=== PATIENT | male | born 1950 | race Caucasian/White ===

== ENCOUNTER 2017-05-05 18:25 | Inpatient (IN) | payer OTHER ==
[2017-05-05 18:33] VITALS: BMI 30.5
[2017-05-05] MEDS ORDERED: SODIUM CHLORIDE 500 ML IV STA (18:43)
[2017-05-05] MEDS ORDERED: ONDANSETRON 4 MG/2 ML VIAL IVPB ONE (18:48)
[2017-05-05] MEDS ORDERED: FOLIC ACID INJECTION - 1 MG, THIAMINE HCL 100 MG, MULTIVIT INJECTION ADULT 10 ML in SOD... IVPB ONE (19:12)
[2017-05-05 19:16] LABS: VENOUS PH 7.45 (7.32-7.42)
[2017-05-05] MEDS ORDERED: diazePAM CARPU-JECT 10 MG/2 ML DISP.SYRIN IVPUSH ONE (19:17)
[2017-05-05 19:18] LABS: BASOPHIL 0.4 % (0-2.0); EOSINOPHIL 0.1 % (0-4.5); MCH 31.6 pg (25.7-33.7); MCHC 34.7 g/dl (32.0-35.9); MEAN CELL VOLUME 91.2 fl (80-96); MEAN PLT VOLUME 8.4 fl (7.5-11.1); NEUTROPHILS 85.3 % (42.8-82.8); PLATELET COUNT 262 K/MM3 (134-434); RDW 14.3 % (11.9-15.9); WHITE BLOOD COUNT 16.2 K/mm3 (4.0-10.0)
[2017-05-05] MEDS ORDERED: ONDANSETRON 4 MG/2 ML VIAL ONE (19:20)
--- NOTE | 2017-05-05 19:20 | PDOC ---
History of Present Illness <Waqas Urbano - Last Filed: 05/05/17 22:00> - General History Source: Patient Exam Limitations: No Limitations - History of Present Illness Initial Comments: 05/05/17 21:14 The patient is a 67 year old male, with a significant past medical history of alcoholism(daily Vodka and beer use), hypertension, and hypothyroidism, who presents to the emergency department with nausea and vomiting since earlier this evening. The patient reports multiple episodes of nausea and bloody/coffee ground emesis earlier today. Patient reports his last drink was yesterday afternoon, and states he has not had a drink today secondary to nausea and vomiting. Patient is unsure of stool color but may have been dark colored. Patient denies any associated abdominal pain, diarrhea, constipation, hematochezia. As per friend, patient has been drinking heavily since and there was some red blood on his vomitus. He reports a dry cough , but denies any fever, chills, headache, dizziness, or lightheadedness. He denies any chest pain, shortness of breath, diaphoresis, or palpitations. He denies any dysuria, hematuria, frequency, or urgency. Patient states he is not on any blood thinners and is compliant with his blood pressure and thyroid medications. He denies any recent travel or sick contacts. Allergies: NKDA Past Surgical History: None reported Social history: ETOH abuse. Non smoker. No recreational drug use. <Christy Rubi - Last Filed: 05/05/17 22:23> - General Chief Complaint: Nausea/Vomiting Stated Complaint: PCP SENT Time Seen by Provider: 05/05/17 18:41 Past History - Past Medical History Asthma: Yes COPD: No HTN: Yes Liver Disease: No Thyroid Disease: Yes (HYPO) - Immunization History Immunization Up to Date: No - Suicide/Smoking/Psychosocial Hx Smoking Status: No Smoking History: Never smoked Have you smoked in the past 12 months: No Number of Cigarettes Smoked Daily: 0 Hx Alcohol Use: Yes (VODKA) Drug/Substance Use Hx: No Substance Use Type: Alcohol Hx Substance Use Treatment: Yes (12 years ago) <Waqas Urbano - Last Filed: 05/05/17 22:00> <Christy Rubi - Last Filed: 05/05/17 22:23> - Past Medical History Allergies/Adverse Reactions: Allergies Allergy/AdvReac Type Severity Reaction Status Date / Time No Known Allergies Allergy Verified 05/05/17 18:32 Home Medications: Ambulatory Orders Levothyroxine [Synthroid -] 88 mcg PO DAILY@0700 #30 tablet 02/04/16 Lisinopril [Prinivil] 10 mg PO DAILY #30 tablet 02/04/16 Review of Systems - Review of Systems Able to Perform ROS?: Yes Comments:: 05/05/17 21:14 CONSTITUTIONAL: No reported: Fever, Chills, Diaphoresis, Generalized Weakness, Malaise, Loss of Appetite HEENT: No reported: Rhinorrhea, Nasal Congestion, Throat Pain, Throat Swelling, Difficulty Swallowing, Mouth Swelling, Ear Pain, Eye Pain, Visual Changes CARDIOVASCULAR: No reported: Chest Pain, Syncope, Palpitations, Irregular Heart Rate, Lightheadedness, Peripheral Edema RESPIRATORY: dry cough No reported: Shortness of Breath, SOB with Exertion, Orthopnea, Wheezing, Stridor GASTROINTESTINAL: +nausea, vomiting(brown/red) No reported: Abdominal pain, Abdominal Distension, Diarrhea, Constipation, Melena, Hematochezia GENITOURINARY: No reported: Dysuria, Frequency, Urgency, Hesitancy, Flank Pain, Genital Pain MUSCULOSKELETAL: No reported: Myalgia, Arthralgia, Joint Swelling, Back pain, Neck Pain SKIN: No reported: Rash, Itching, Pallor HEMEATOLOGIC/IMMUNOLOGIC: No reported: Easy Bleeding, Easy Bruising, Lymphadenopathy, Frequent infections ENDOCRINE: No reported: Unexplained Weight Gain, Unexplained Weight Loss, Heat Intolerance , Cold Intolerance NEUROLOGIC: No reported: Headache, Focal Weakness, Paresthesias, Vertigo, Lightheadedness, Unsteady Gait, Seizure, Mental Status Changes, Incontinence PSYCHIATRIC: No reported: Anxiety, Depression <Christy Rubi - Last Filed: 05/05/17 22:23> *Physical Exam - Vital Signs Last Vital Signs Temp Pulse Resp BP Pulse Ox 99.6 F 118 H 20 159/120 95 05/05/17 18:26 05/05/17 18:26 05/05/17 18:26 05/05/17 18:26 05/05/17 18:26 <Waqas Urbano - Last Filed: 05/05/17 22:00> - Vital Signs Last Vital Signs Temp Pulse Resp BP Pulse Ox 99.6 F 101 H 20 158/94 94 L 05/05/17 18:26 05/05/17 21:02 05/05/17 21:02 05/05/17 21:02 05/05/17 21:02 - Physical Exam Comments: 05/05/17 21:14 GENERAL: The patient is awake, alert, and fully oriented, Nontoxic - in no acute distress, tremulous appearing HEAD: Normocephalic, atraumatic. EYES: extraocular movements intact, sclera anicteric, conjunctiva clear. ENT: Normal voice, Moist mucous membranes NECK: Normal range of motion, supple LUNGS: Breath sounds equal, clear to auscultation bilaterally. No wheezes, no rhonchi, no rales. HEART: tachycardic ABDOMEN: Soft, nontender, normoactive bowel sounds. No guarding, no rebound. No CVA tenderness RECTAL: non melanotic, dark colored, scant stool in vault EXTREMITIES: Normal range of motion, no edema. No clubbing or cyanosis. No cords, erythema, or tenderness. NEUROLOGICAL: No facial assymetry, Normal speech, moving all 4 extremities spontaneously and symmetrically PSYCH: Normal mood, normal affect. SKIN: Warm, Dry, normal turgor, <Rubi,Giomilsy - Last Filed: 05/05/17 22:23> Heart Score/ECG Review - ECG Impressions Comment:: 05/05/17 20:38 Twelve-lead EKG was performed and reviewed by me. There is normal sinus rhythm with a rate of 100 Left axis deviation Impression: Normal twelve-lead EKG <Waqas Urbano - Last Filed: 05/05/17 22:00> ED Treatment Course - LABORATORY CBC & Chemistry Diagram: 05/05/17 19:10 05/05/17 19:10 - RADIOLOGY Radiology Studies Ordered: Category Date Time Status CHEST X-RAY PORTABLE* [RAD] Stat Radiology 05/05/17 18:57 Ordered - Medications Given in the ED: ED Medications Discontinued Medications Generic Name Dose Route Start Last Admin Trade Name Freq PRN Reason Stop Dose Admin Ondansetron HCl 4 mg 05/05/17 18:48 05/05/17 19:14 Zofran Injection IVPB 05/05/17 18:49 4 mg ONCE ONE Administration <Waqas Urbano - Last Filed: 05/05/17 22:00> - LABORATORY CBC & Chemistry Diagram: 05/05/17 19:10 05/05/17 19:10 - ADDITIONAL ORDERS Additional order review: Laboratory Results 05/05/17 05/05/17 05/05/17 20:00 19:26 19:10 PT with INR INR VBG pH POC VBG pCO2 POC VBG pO2 Mixed VBG HCO3 Sodium Potassium Chloride Carbon Dioxide Anion Gap BUN Creatinine Creat Clearance w eGFR Random Glucose Calcium Total Bilirubin AST ALT Alkaline Phosphatase Creatine Kinase Cancelled Creatine Kinase Index CK-MB (CK-2) Troponin I Cancelled Total Protein Albumin Lipase Stool Occult Blood Positive Alcohol, Quantitative Acetone, Qual Blood Type O POSITIVE Antibody Screen Negative 05/05/17 05/05/17 05/05/17 19:10 19:10 19:10 PT with INR INR VBG pH POC VBG pCO2 POC VBG pO2 Mixed VBG HCO3 Sodium Potassium Chloride Carbon Dioxide Anion Gap BUN Creatinine Creat Clearance w eGFR Random Glucose Calcium Total Bilirubin AST ALT Alkaline Phosphatase Creatine Kinase Creatine Kinase Index CK-MB (CK-2) Troponin I Total Protein Albumin Lipase Cancelled Stool Occult Blood Alcohol, Quantitative 158.8 H* Acetone, Qual Negative Blood Type Antibody Screen 05/05/17 05/05/17 05/05/17 19:10 19:10 19:00 PT with INR 11.60 INR 1.03 VBG pH 7.45 H POC VBG pCO2 39.2 POC VBG pO2 50.9 H Mixed VBG HCO3 27.0 H Sodium 132 L Potassium 3.8 Chloride 95 L Carbon Dioxide 24 Anion Gap 13 BUN 18 D Creatinine 0.7 D Creat Clearance w eGFR > 60 Random Glucose 158 H Calcium 7.2 L Total Bilirubin 0.5 AST 40 H D ALT 35 D Alkaline Phosphatase 85 Creatine Kinase 395 H Creatine Kinase Index 0.8 CK-MB (CK-2) 3.494 Troponin I < 0.02 Total Protein 7.3 Albumin 3.7 Lipase 46 L Stool Occult Blood Alcohol, Quantitative Acetone, Qual Blood Type Antibody Screen 05/05/17 19:10 RBC 4.62 MCV 91.2 MCHC 34.7 RDW 14.3 MPV 8.4 D Neutrophils % 85.3 H Lymphocytes % 7.6 L Monocytes % 6.6 Eosinophils % 0.1 D Basophils % 0.4 - Medications Given in the ED: ED Medications Discontinued Medications Generic Name Dose Route Start Last Admin Trade Name Toyin PRN Reason Stop Dose Admin Diazepam 5 mg 05/05/17 19:17 05/05/17 19:30 Valium Injection - IVPUSH 05/05/17 19:18 Not Given ONCE ONE Diazepam 5 mg 05/05/17 19:56 05/05/17 20:03 Valium - PO 05/05/17 19:57 5 mg ONCE ONE Administration Sodium Chloride 500 mls @ 500 mls/hr 05/05/17 18:43 05/05/17 19:13 Normal Saline - IV 05/05/17 19:42 500 mls/hr ASDIR STA Administration Pantoprazole Sodium 40 mg/ 100 mls @ 200 mls/hr 05/05/17 20:22 05/05/17 20:38 Sodium Chloride IVPB 05/05/17 20:51 200 mls/hr ONCE ONE Administration Octreotide Acetate 50 mcg 05/05/17 20:22 05/05/17 20:50 Sandostatin - IVPUSH 05/05/17 20:23 50 mcg ONCE ONE Administration Ondansetron HCl 4 mg 05/05/17 18:48 05/05/17 19:14 Zofran Injection IVPB 05/05/17 18:49 4 mg ONCE ONE Administration <Christy Rubi - Last Filed: 05/05/17 22:23> Medical Decision Making - Medical Decision Making 05/05/17 19:15 67y F hx of etoh abuse, htn, hypothyroidism presents with complaint of nausea/ vomiting since this morning. Pt endorses multiple episodes of vomiting that had blood in it an was dark colored and with some blood per friend. Pt deines any cp , sob, but does endorse some stool but wasnt sure of the color. pt states he has been drinking heavily since thanks giving, notes he drnks 1 bottle of vodka a day, last drink was yesterday. on arrival the pts vitals noted for tachycardia and htn pt does appear mildly tremulous dry mucus membranes abd soft notneder awaiting guaiac exam concern for possible UGIB/ulcers will ck pt/inr, t&s will give fluids, zofran will give diazepam as i belive pt has mild sypmtoms of withdrawal A portion of this note was documented by scribe services under my direction. I have reviewed the details of the note, within reason, and agree with the documentation with the following case summary and management plan written by me 05/05/17 20:34 pts labs reviewed noted for no anemia no signs of AKA per blood +stool guaiac positive +mild withdrawal will admit pt for further management will start protonix and octreotide based on pts etoh hx and concern for variceal bleeding 05/05/17 21:[address] kennedy agree with admissio nfor further management of withrasawl and gib will notify GIB Case discussed in detail with admitting physician including history, physical exam and ancillary studies. Admitting physician has assumed care for the patient, will follow all pending diagnostics and will complete the evaluation and treatment. <Waqas Urbano - Last Filed: 05/05/17 22:00> - Medical Decision Making 05/05/17 22:19 First call placed to Dr. Otoole at 22:20. Awaiting call back. Case discussed with Dr. Otoole at 22:22. <Christy Rubi - Last Filed: 05/05/17 22:23> *DC/Admit/Observation/Transfer - Discharge Dispostion Admit: Yes <Waqas Urbano - Last Filed: 05/05/17 22:00> - Attestations Scribe Attestion: 05/05/17 21:15 Documentation prepared by Christy Rubi, acting as medical claims analyst for Waqas Urbano MD. <Christy Rubi - Last Filed: 05/05/17 22:23> Diagnosis at time of Disposition: Alcohol withdrawal Qualifiers: Complication of substance-induced condition: uncomplicated Qualified Code(s): F10.230 - Alcohol dependence with withdrawal, uncomplicated GIB (gastrointestinal bleeding) Qualifiers: GI bleed type/associated pathology: unspecified gastrointestinal hemorrhage type Qualified Code(s): K92.2 - Gastrointestinal hemorrhage, unspecified - Discharge Dispostion Condition at time of disposition: Guarded
[2017-05-05] MEDS ORDERED: diazePAM 5 MG TABLET ONE ×2 (19:30→19:34)
[2017-05-05 19:32] LABS: INR 1.03 (0.82-1.09); PROTHROMBIN TIME (PATIENT) 11.6 SEC (9.98-11.88)
[2017-05-05 19:51] LABS: ALBUMIN 3.7 g/dl (3.4-5.0); ANION GAP 13 (8-16); BILIRUBIN,TOTAL 0.5 mg/dL (0.2-1.0); CALCIUM 7.2 mg/dL (8.5-10.1); CO2 24 mmol/L (21-32); CREATININE 0.7 mg/dL (0.7-1.3); GLUCOSE,RANDOM 158 mg/dL (74-106); SGOT/AST 40 U/L (15-37); SGPT/ALT 35 U/L (12-78); TOT PROT 7.3 g/dl (6.4-8.2)
[2017-05-05] MEDS ORDERED: diazePAM 5 MG TABLET PO ONE (19:56)
[2017-05-05 19:59] LABS: ALK PHOS 85 U/L (45-117); CPK 395 IU/L (39-308); TROPONIN I < 0.02 ng/ml (0.00-0.05)
[2017-05-05] MEDS ORDERED: OCTREOTIDE ACETATE 50 MCG/1 ML - 1 ML VIAL IVPUSH ONE (20:22)
[2017-05-05] MEDS ORDERED: PANTOPRAZOLE SODIUM 40 MG in SODIUM CHLORIDE 100 ML IVPB ONE (20:22)
[2017-05-05] MEDS ORDERED: PANTOPRAZOLE SODIUM 40 MG/100 ML BAG IVPB ONE (20:27)
[2017-05-05] MEDS ORDERED: PANTOPRAZOLE SODIUM 40 MG VIAL ONE (20:28)
[2017-05-05] MEDS ORDERED: OCTREOTIDE ACETATE 100 MCG/1 ML ONE (20:28)
[2017-05-05] MEDS ORDERED: OCTREOTIDE ACETATE 1,200 MCG in DEXTROSE 5%-WATER - 488 ML IVPB SCH (20:30)
[2017-05-05] MEDS ORDERED: PANTOPRAZOLE SODIUM 80 MG in SODIUM CHLORIDE 100 ML IVPB SCH (20:30)
[2017-05-05] MEDS ORDERED: chlordiazePOXIDE HCL 25 MG CAPSULE PO PRN (23:45)
--- NOTE | 2017-05-05 23:47 | HP ---
CHIEF COMPLAINT: eoth withdrawal/coffee ground emesis PCP: Susan Auguste GI: Dr. Del Rio Cardio: Dr. Maldonado HISTORY OF PRESENT ILLNESS: 67 yr old northern irish speaking man with chronic alcohol abuse, HTN, hypothyroidism presents with one day of multiple episodes of watery emesis, several episodes of "dark colored" emesis. says he drank coca cola. unable to quantify amount of vomiting. He drinks 1L bottle of vodka daily for october years, last drink . a/w trouble swallowing and throat pain after vomiting. has a history of "shaking/tremors" after he stops drinking. ER course was notable for: (1) banana bag (2) IVF (3) protonix drip chart reviewed for additional information. PAST MEDICAL HISTORY: HTN Hypothyroidism ETOH abuse PAST SURGICAL HISTORY: none Social History: Smoking: denies Alcohol: daily drinker, 1L of vodka Drugs: denies Family History: [place] Allergies No Known Allergies Allergy (Verified 05/05/17 18:32) HOME MEDICATIONS: Home Medications Medication Instructions Recorded Levothyroxine [Synthroid -] 88 mcg PO DAILY@0700 #30 tablet 02/04/16 Lisinopril [Prinivil] 10 mg PO DAILY #30 tablet 02/04/16 REVIEW OF SYSTEMS CONSTITUTIONAL: Absent: fever, chills, diaphoresis, generalized weakness, malaise, loss of appetite HEENT: Present: throat pain, Absent:difficulty swallowing CARDIOVASCULAR: Absent: chest pain, palpitations, RESPIRATORY: Absent: cough, shortness of breath GASTROINTESTINAL: Present:vomiting Absent: abdominal pain, abdominal distension, nausea, diarrhea, constipation, melena, hematochezia NEUROLOGIC: Absent: headache, dizziness, PHYSICAL EXAMINATION Vital Signs - 24 hr 05/05/17 05/05/17 05/05/17 18:26 21:02 22:15 Temperature 99.6 F 98.2 F Pulse Rate 118 H Pulse Rate [ 101 H 94 H Apical] Respiratory 20 20 20 Rate Blood Pressure 159/120 Blood Pressure 158/94 148/90 [Right Arm] O2 Sat by Pulse 95 94 L 100 Oximetry (%) 05/05/17 22:40 Temperature 99.9 F H Pulse Rate 95 H Pulse Rate [ Apical] Respiratory 20 Rate Blood Pressure 146/83 Blood Pressure [Right Arm] O2 Sat by Pulse Oximetry (%) GENERAL: Awake, alert, and fully oriented, in no acute distress. HEAD: Normal with no signs of trauma. EYES: Pupils equal, round and reactive to light, extraocular movements intact, sclera anicteric, conjunctiva clear. No lid lag. EARS, NOSE, THROAT: buccal mucosa clear without exudates. Moist mucous membranes. white plaque coating on his tongue NECK: Normal range of motion, supple without lymphadenopathy, JVD, or masses. LUNGS: Breath sounds equal, clear to auscultation bilaterally. No wheezes, and no crackles. No accessory muscle use. HEART: sinus tachy, Regular rhythm, normal S1 and S2 without murmur, rub or gallop. ABDOMEN: Soft, nontender, not distended, normoactive bowel sounds, no guarding, no rebound, no masses. MUSCULOSKELETAL: Normal range of motion at all joints. No bony deformities or tenderness. No CVA tenderness. UPPER EXTREMITIES: 2+ radial pulses, warm, well-perfused. No cyanosis. No clubbing. No peripheral edema. LOWER EXTREMITIES: 2+ DP pulses, warm, well-perfused. No calf tenderness. No peripheral edema. NEUROLOGICAL: Cranial nerves II-XII intact. Normal speech. facial symmetry. visible tremor in b/l upper extremities at rest and with movement. 5/5 handgrip. PSYCHIATRIC: Cooperative. Good eye contact. Appropriate mood and affect. SKIN: Warm, dry, normal turgor, no rashes or lesions noted, normal capillary refill. Laboratory Results - last 24 hr 05/05/17 05/05/17 05/05/17 19:00 19:10 19:10 WBC 16.2 H D RBC 4.62 Hgb 14.6 Hct 42.1 MCV 91.2 MCH 31.6 MCHC 34.7 RDW 14.3 Plt Count 262 D MPV 8.4 D Neutrophils % 85.3 H Lymphocytes % 7.6 L Monocytes % 6.6 Eosinophils % 0.1 D Basophils % 0.4 PT with INR 11.60 INR 1.03 VBG pH 7.45 H POC VBG pCO2 39.2 POC VBG pO2 50.9 H Mixed VBG HCO3 27.0 H Sodium Potassium Chloride Carbon Dioxide Anion Gap BUN Creatinine Creat Clearance w eGFR Random Glucose Calcium Total Bilirubin AST ALT Alkaline Phosphatase Creatine Kinase Creatine Kinase Index CK-MB (CK-2) Troponin I Total Protein Albumin Lipase Stool Occult Blood Alcohol, Quantitative Acetone, Qual Blood Type Antibody Screen 05/05/17 05/05/17 05/05/17 19:10 19:10 19:10 WBC RBC Hgb Hct MCV MCH MCHC RDW Plt Count MPV Neutrophils % Lymphocytes % Monocytes % Eosinophils % Basophils % PT with INR INR VBG pH POC VBG pCO2 POC VBG pO2 Mixed VBG HCO3 Sodium 132 L Potassium 3.8 Chloride 95 L Carbon Dioxide 24 Anion Gap 13 BUN 18 D Creatinine 0.7 D Creat Clearance w eGFR > 60 Random Glucose 158 H Calcium 7.2 L Total Bilirubin 0.5 AST 40 H D ALT 35 D Alkaline Phosphatase 85 Creatine Kinase 395 H Creatine Kinase Index 0.8 CK-MB (CK-2) 3.494 Troponin I < 0.02 Total Protein 7.3 Albumin 3.7 Lipase 46 L Stool Occult Blood Alcohol, Quantitative 158.8 H* Acetone, Qual Negative Blood Type Antibody Screen 05/05/17 05/05/17 05/05/17 19:10 19:10 19:26 WBC RBC Hgb Hct MCV MCH MCHC RDW Plt Count MPV Neutrophils % Lymphocytes % Monocytes % Eosinophils % Basophils % PT with INR INR VBG pH POC VBG pCO2 POC VBG pO2 Mixed VBG HCO3 Sodium Potassium Chloride Carbon Dioxide Anion Gap BUN Creatinine Creat Clearance w eGFR Random Glucose Calcium Total Bilirubin AST ALT Alkaline Phosphatase Creatine Kinase Cancelled Creatine Kinase Index CK-MB (CK-2) Troponin I Cancelled Total Protein Albumin Lipase Cancelled Stool Occult Blood Alcohol, Quantitative Acetone, Qual Blood Type O POSITIVE Antibody Screen Negative 05/05/17 20:00 WBC RBC Hgb Hct MCV MCH MCHC RDW Plt Count MPV Neutrophils % Lymphocytes % Monocytes % Eosinophils % Basophils % PT with INR INR VBG pH POC VBG pCO2 POC VBG pO2 Mixed VBG HCO3 Sodium Potassium Chloride Carbon Dioxide Anion Gap BUN Creatinine Creat Clearance w eGFR Random Glucose Calcium Total Bilirubin AST ALT Alkaline Phosphatase Creatine Kinase Creatine Kinase Index CK-MB (CK-2) Troponin I Total Protein Albumin Lipase Stool Occult Blood Positive Alcohol, Quantitative Acetone, Qual Blood Type Antibody Screen ASSESSMENT/PLAN: 67 yr old man with current ETOH abuse, presents with vomiting, etoh withdrawal and found to have FOBT +. #ETOH withdrawal: CIWA 16, librium protocol started with 50mg due to severity of drinking - Protonix BID ivpush 40mg - NS @ 125cc/hr - thiamine, folate, MVI - QTc 446, given zofran in ED, monitor QTc while on librium - repeat BMP to monitor for electrolyte imbalances - patient would benefit from rehab/detox referral #FOBT +/hematemesis - no overt german bleeding witnessed, concern for gastric ulcer or varices, liver ultrasound to evaluate liver for hepatomegaly/cirrhosis - dr. del rio consulted for GI evaluation - trend cbc q6h # Tongue plaque - r/o HIV, patient provided oral consent, rapid HIV 4th gen ordered - nystatin swish and swallow q6po #hypothyroidism - synthroid 88mcg po daily #HTN - lisinopril 10mg po daily #DVT: SCD's #diet NPO for now, advance as tolerated Visit type - Emergency Visit Emergency Visit: Yes ED Registration Date: 05/05/17 Care time: The patient presented to the Emergency Department on the above date and was hospitalized for further evaluation of their emergent condition. - New Patient This patient is new to me today: Yes Date on this admission: 05/06/17 - Critical Care Critical Care patient: No
--- NOTE | 2017-05-06 00:13 | PN ---
Teaching Attending Note Name of Resident: Yobany Combs ATTENDING PHYSICIAN STATEMENT I saw and evaluated the patient. Chart, data, imaging reviewed. I reviewed the resident's note and discussed the case with the resident. I agree with the resident's findings and plan as documented. SUBJECTIVE: 67 year old male, with a significant past medical history of alcoholism(daily Vodka and beer use), hypertension, and hypothyroidism c/o nausea/vomiting for 1 day. He reports that he has been drinking one bottle of vodka a day for the past 5 days at least. He is unable to number the amount of times that he has vomited , said his vomitus was black, no bright blood. He also mentioned that he was drinking coca cola. Stool fecal occult+. OBJECTIVE: Last Vital Signs Temp Pulse Resp BP Pulse Ox 99.9 F H 95 H 20 146/83 100 05/05/17 22:40 05/05/17 22:40 05/05/17 22:40 05/05/17 22:40 05/05/17 22:15 general-aax3, nad, communicates fluently in mohawk, malodorous , unkept heent-whitish plaque on tongue cv-s1+s2+rrr chest -cta b/l abdomen- soft, nt, no masses ext - no swelling skin - no rashes appreciated Abnormal Lab Results 05/05/17 05/05/17 05/05/17 19:00 19:10 19:10 WBC 16.2 H D Neutrophils % 85.3 H Lymphocytes % 7.6 L VBG pH 7.45 H POC VBG pO2 50.9 H Mixed VBG HCO3 27.0 H Sodium 132 L Chloride 95 L Random Glucose 158 H Calcium 7.2 L AST 40 H D Creatine Kinase 395 H Lipase 46 L Alcohol, Quantitative 05/05/17 19:10 WBC Neutrophils % Lymphocytes % VBG pH POC VBG pO2 Mixed VBG HCO3 Sodium Chloride Random Glucose Calcium AST Creatine Kinase Lipase Alcohol, Quantitative 158.8 H* ekg -nsr, no st-t changes stool guiac+ ASSESSMENT AND PLAN: #Possible upper GI bleed in context recent binge drinking. Uncertain with hematemesis or if vomitus black from soft drink. However, stool guiac + so upper GI bleed should be r/o. Currently vital signs are stable and hemoglobin and hematocrit are stable. No signs of Liver cirrhosis on physical exam. -admit to med/surg -IV fluid hydration -GI consult -PPIs IV q12hrs -zofran IV prn if nausea/vomiting -NPO -check cbc q6hrs -monitor vital signs closely -liver U/S #Impending alcohol withdrawal -librium 50mg PO q6hrs -ativan 2mg IVP PRN if withdrawal -correct electrolye abnormalities -banana bag -IV fluids -CIWA protocol #WHitish plawque on tongue -possible oral thrush -HIV test (patient agreed) -nystatin swish and spit #DVT ppx - -SCDs -avoid heparin
[2017-05-06] MEDS: chlordiazePOXIDE HCL 25 MG CAPSULE PO SCH ×5 (00:21→22:01)
[2017-05-06] MEDS: SODIUM CHLORIDE 1,000 ML IV SCH ×5 (00:22→23:07)
[2017-05-06] MEDS: NYSTATIN 500,000 UNITS/5 ML SUSPENSION PO SCH ×4 (05:12→23:09)
[2017-05-06 05:19] LABS: MCH 31.1 pg (25.7-33.7); MEAN CELL VOLUME 91.5 fl (80-96); MEAN PLT VOLUME 8.2 fl (7.5-11.1); PLATELET COUNT 249 K/MM3 (134-434); RDW 14.1 % (11.9-15.9); WHITE BLOOD COUNT 21.7 K/mm3 (4.0-10.0)
[2017-05-06 05:54] LABS: ALBUMIN 3.5 g/dl (3.4-5.0); ALK PHOS 86 U/L (45-117); ANION GAP 11 (8-16); BILIRUBIN,TOTAL 1.1 mg/dL (0.2-1.0); CO2 25 mmol/L (21-32); CREATININE 0.9 mg/dL (0.7-1.3); GLUCOSE,RANDOM 123 mg/dL (74-106); MAGNESIUM 1.5 mg/dL (1.8-2.4); PHOSPHOROUS 2.6 mg/dL (2.5-4.9); SGOT/AST 36 U/L (15-37); SGPT/ALT 33 U/L (12-78); TOT PROT 6.9 g/dl (6.4-8.2)
[2017-05-06 05:56] LABS: CALCIUM 6.9 mg/dL (8.5-10.1)
[2017-05-06] MEDS ORDERED: HEPARIN NA (PORCINE) 5,000 UNITS/ML 1ML VIAL SQ SCH (06:00)
[2017-05-06 06:09] LABS: TOTAL CELLS COUNTED 100
[2017-05-06] MEDS: LEVOTHYROXINE NA 88 MCG TABLET (FP) PO SCH (06:10)
[2017-05-06 06:11] LABS: HIV 1 & 2 AB NEGATIVE; HIV 1 AGp24 NEGATIVE
--- NOTE | 2017-05-06 08:48 | EKG ---
Test Reason : Blood Pressure : / mmHG Vent. Rate : 100 BPM Atrial Rate : 100 BPM P-R Int : 132 ms QRS Dur : 092 ms QT Int : 346 ms P-R-T Axes : 060 -40 045 degrees QTc Int : 446 ms NORMAL SINUS RHYTHM LEFT AXIS DEVIATION ABNORMAL ECG WHEN COMPARED WITH ECG OF 13-JUN-2016 10:04, QRS AXIS SHIFTED LEFT Confirmed by PATSY MCGRAW MD ([id number]) on 05/06/2017 8:47:35 AM Referred By: Confirmed By:PATSY MCGRAW MD
[2017-05-06] MEDS: FOLIC ACID 1 MG TABLET (FP) PO SCH (10:24)
[2017-05-06] MEDS: THIAMINE HCL 100 MG TABLET (FP) PO SCH (10:24)
[2017-05-06] MEDS: CALCIUM CARBONATE 650 MG TABLET PO SCH (10:24)
[2017-05-06] MEDS: MULTIVITAMINS (DAILY MVI) TABLET (FP) PO SCH (10:26)
[2017-05-06] MEDS: LISINOPRIL 10 MG TABLET (FP) PO SCH (10:26)
[2017-05-06] MEDS: PANTOPRAZOLE SODIUM 40 MG VIAL IVPUSH SCH ×2 (10:32→22:01)
--- NOTE | 2017-05-06 14:32 | PN ---
Teaching Attending Note Name of Resident: Madie Monaco ATTENDING PHYSICIAN STATEMENT I saw and evaluated the patient. I reviewed the resident's note and discussed the case with the resident. I agree with the resident's findings and plan as documented. SUBJECTIVE:asymptomatic. states he had episode of vomiting black liquids yesterday after drinking coffee. assoc with abdominal pain. all which has now resolved. denies CP, SOB, fever, chills, N/V/C/D. requesting to eat. has not seen a doctor in very long time but claims medication compliance. never had EGD/ colonoscopy OBJECTIVE: Last Vital Signs Temp Pulse Resp BP Pulse Ox 98.5 F 76 20 116/54 100 05/06/17 13:25 05/06/17 13:25 05/06/17 13:25 05/06/17 13:25 05/05/17 22:15 General NAD CV S1 S2 tachy Lungs CTA B/L no wheezing/rales/rhonchi Abdomen +distended NT, unable to palpate liver edge Extremities no pedal edema, no tremors ASSESSMENT AND PLAN: 67yo M with PMH continuous ETOH dependence, hypothyroid and HTN presented with ETOH withdrawal and coffee ground emesis 1. Upper GI bleed- concern for variceal bleeding with probable liver disease vs PUD. NPO for now, can likely advance to clear liquid diet as Hgb is stable and hemodynamically stable. cont IVF, PPI. would likely benefit from EGD. GI consulted will f/u recommendations. d/c ocretrotide ggt 2. Leukocytosis-likely reactive. no signs of infection. UA and CXR clear. will hold off abx at this time 3. ETOH withdrawal- CIWA 4. on librium protocol. not interested rehab. counseled on risks of continued drinking which can lead to . cont thiamine/ folate/MVI 4. Hyponatremia- likely dehydration. stable. 5. Hypocalcemia- Corrected Ca 7.3. start calcium supplements when can tolerate po. 6. HTN- controlled. cont lisinopril 7. Hypothyroid- on LT4 8. DVT ppx- SCD. hold pharmacologic anticoagulation in setting of bleeding
--- NOTE | 2017-05-06 14:36 | CON.GI ---
Consult Consult Specialty:: GI - History of Present Illness History of Present Illness: 67 yom alcoholism, (daily vodka, per records), hypertension, and hypothyroidism. Admitted with c/o nausea, vomiting coffee ground material. Multiple episodes of vomiting in the last 5 days while binge drinking, none with german blood, no melena, hematochezia, epigastric, or chest pain. No dysphagia, or odynophagia. No fever, chills, jaundice. No significant weight loss over the last 12 months. On admission, normal Coag., Hgb, PLT, ALT, ALP, Lipse. T. bili 1.1, AST 40, Na 132. WBC 16-20. RUQ US suggests "hpatocellular diseae", no focal lesions. - History Source History Provided By: Patient, Medical Record Limitations to Obtaining History: Language Barrier - Past Medical History Cardio/Vascular: Yes: HTN Endocrine: Yes: Hypothyroidism - Alcohol/Substance Use Hx Alcohol Use: Yes (VODKA) - Smoking History Smoking history: Never smoked Have you smoked in the past 12 months: No Aproximately how many cigarettes per day: 0 Home Medications - Allergies Allergies/Adverse Reactions: Allergies Allergy/AdvReac Type Severity Reaction Status Date / Time No Known Allergies Allergy Verified 05/05/17 18:32 - Home Medications Home Medications: Ambulatory Orders Levothyroxine [Synthroid -] 88 mcg PO DAILY@0700 #30 tablet 02/04/16 Lisinopril [Prinivil] 10 mg PO DAILY #30 tablet 02/04/16 Family Disease History - Family Disease History Family History: Unremarkable (non-contributory) Review of Systems Findings/Remarks: please refer to H&P Physical Exam-GI Vital Signs: Vital Signs Temperature 98.5 F 05/06/17 13:25 Pulse Rate 76 05/06/17 13:25 Respiratory Rate 20 05/06/17 13:25 Blood Pressure 116/54 05/06/17 13:25 O2 Sat by Pulse Oximetry (%) 100 05/05/17 22:15 Constitutional: Yes: No Distress, Anxious Eyes: Yes: Conjunctiva Clear Neck: Yes: Supple Respiratory: Yes: Regular Gastrointestinal Inspection: No: Ascites, Distention ...Palpate: Yes: Soft. No: Firm/Rigid, Guarding, Mass, Tenderness, Tenderness, Epigastium, Tenderness, Rebound ...Percussion: No: Fluid Wave Neurological: Yes: Alert, Oriented Labs: CBC, BMP 05/06/17 05:00 05/06/17 05:00 INR, PTT INR 1.03 (0.82-1.09) 05/05/17 19:10 Abnormal Lab Results 05/05/17 05/05/17 05/05/17 19:00 19:10 19:10 WBC 16.2 H D Neutrophils % 85.3 H Lymphocytes % 7.6 L Monocytes % (Manual) VBG pH 7.45 H POC VBG pO2 50.9 H Mixed VBG HCO3 27.0 H Sodium 132 L Chloride 95 L Random Glucose 158 H Calcium 7.2 L Magnesium Total Bilirubin AST 40 H D Creatine Kinase 395 H Lipase 46 L Alcohol, Quantitative 05/05/17 05/06/17 05/06/17 19:10 05:00 05:00 WBC 21.7 H D Neutrophils % Lymphocytes % Monocytes % (Manual) 2 L VBG pH POC VBG pO2 Mixed VBG HCO3 Sodium 132 L Chloride 96 L Random Glucose 123 H D Calcium 6.9 L* Magnesium 1.5 L D Total Bilirubin 1.1 H D AST Creatine Kinase Lipase Alcohol, Quantitative 158.8 H* Laboratory Tests 05/05/17 05/05/17 05/05/17 19:00 19:10 19:10 WBC 16.2 H D RBC 4.62 Hgb 14.6 Hct 42.1 MCV 91.2 MCH 31.6 MCHC 34.7 RDW 14.3 Plt Count 262 D MPV 8.4 D Total Counted Neutrophils % 85.3 H Neutrophils % (Manual) Band Neutrophils % Lymphocytes % 7.6 L Lymphocytes % (Manual) Monocytes % 6.6 Monocytes % (Manual) Eosinophils % 0.1 D Eosinophils % (Manual) Basophils % 0.4 PT with INR 11.60 INR 1.03 VBG pH 7.45 H POC VBG pCO2 39.2 POC VBG pO2 50.9 H Mixed VBG HCO3 27.0 H Sodium Potassium Chloride Carbon Dioxide Anion Gap BUN Creatinine Creat Clearance w eGFR Random Glucose Calcium Phosphorus Magnesium Total Bilirubin AST ALT Alkaline Phosphatase Creatine Kinase Creatine Kinase Index CK-MB (CK-2) Troponin I Total Protein Albumin Lipase Stool Occult Blood Alcohol, Quantitative Acetone, Qual HIV 1&2 Antibody Screen HIV P24 Antigen Blood Type Antibody Screen 12/07/2105/05/17 05/05/17 19:10 19:10 19:10 WBC RBC Hgb Hct MCV MCH MCHC RDW Plt Count MPV Total Counted Neutrophils % Neutrophils % (Manual) Band Neutrophils % Lymphocytes % Lymphocytes % (Manual) Monocytes % Monocytes % (Manual) Eosinophils % Eosinophils % (Manual) Basophils % PT with INR INR VBG pH POC VBG pCO2 POC VBG pO2 Mixed VBG HCO3 Sodium 132 L Potassium 3.8 Chloride 95 L Carbon Dioxide 24 Anion Gap 13 BUN 18 D Creatinine 0.7 D Creat Clearance w eGFR > 60 Random Glucose 158 H Calcium 7.2 L Phosphorus Magnesium Total Bilirubin 0.5 AST 40 H D ALT 35 D Alkaline Phosphatase 85 Creatine Kinase 395 H Creatine Kinase Index 0.8 CK-MB (CK-2) 3.494 Troponin I < 0.02 Total Protein 7.3 Albumin 3.7 Lipase 46 L Stool Occult Blood Alcohol, Quantitative 158.8 H* Acetone, Qual Negative HIV 1&2 Antibody Screen HIV P24 Antigen Blood Type Antibody Screen 05/05/17 05/05/17 05/05/17 19:10 19:10 19:26 WBC RBC Hgb Hct MCV MCH MCHC RDW Plt Count MPV Total Counted Neutrophils % Neutrophils % (Manual) Band Neutrophils % Lymphocytes % Lymphocytes % (Manual) Monocytes % Monocytes % (Manual) Eosinophils % Eosinophils % (Manual) Basophils % PT with INR INR VBG pH POC VBG pCO2 POC VBG pO2 Mixed VBG HCO3 Sodium Potassium Chloride Carbon Dioxide Anion Gap BUN Creatinine Creat Clearance w eGFR Random Glucose Calcium Phosphorus Magnesium Total Bilirubin AST ALT Alkaline Phosphatase Creatine Kinase Cancelled Creatine Kinase Index CK-MB (CK-2) Troponin I Cancelled Total Protein Albumin Lipase Cancelled Stool Occult Blood Alcohol, Quantitative Acetone, Qual HIV 1&2 Antibody Screen HIV P24 Antigen Blood Type O POSITIVE Antibody Screen Negative 05/05/17 05/06/17 05/06/17 20:00 05:00 05:00 WBC 21.7 H D RBC 4.45 Hgb 13.8 Hct 40.7 MCV 91.5 MCH 31.1 MCHC 34.0 RDW 14.1 Plt Count 249 MPV 8.2 Total Counted 100 Neutrophils % No Result Required. Neutrophils % (Manual) 81.0 Band Neutrophils % 1.0 Lymphocytes % No Result Required. Lymphocytes % (Manual) 14.0 Monocytes % Monocytes % (Manual) 2 L Eosinophils % Eosinophils % (Manual) 1.0 Basophils % PT with INR INR VBG pH POC VBG pCO2 POC VBG pO2 Mixed VBG HCO3 Sodium 132 L Potassium 3.8 Chloride 96 L Carbon Dioxide 25 Anion Gap 11 BUN 16 Creatinine 0.9 D Creat Clearance w eGFR > 60 Random Glucose 123 H D Calcium 6.9 L* Phosphorus 2.6 Magnesium 1.5 L D Total Bilirubin 1.1 H D AST 36 ALT 33 Alkaline Phosphatase 86 Creatine Kinase Creatine Kinase Index CK-MB (CK-2) Troponin I Total Protein 6.9 Albumin 3.5 Lipase Stool Occult Blood Positive Alcohol, Quantitative Acetone, Qual HIV 1&2 Antibody Screen HIV P24 Antigen Blood Type Antibody Screen 05/06/17 05:00 WBC RBC Hgb Hct MCV MCH MCHC RDW Plt Count MPV Total Counted Neutrophils % Neutrophils % (Manual) Band Neutrophils % Lymphocytes % Lymphocytes % (Manual) Monocytes % Monocytes % (Manual) Eosinophils % Eosinophils % (Manual) Basophils % PT with INR INR VBG pH POC VBG pCO2 POC VBG pO2 Mixed VBG HCO3 Sodium Potassium Chloride Carbon Dioxide Anion Gap BUN Creatinine Creat Clearance w eGFR Random Glucose Calcium Phosphorus Magnesium Total Bilirubin AST ALT Alkaline Phosphatase Creatine Kinase Creatine Kinase Index CK-MB (CK-2) Troponin I Total Protein Albumin Lipase Stool Occult Blood Alcohol, Quantitative Acetone, Qual HIV 1&2 Antibody Screen Negative HIV P24 Antigen Negative Blood Type Antibody Screen Imaging - Results Ultrasound: Report Reviewed Assessment/Plan A 67 yom with coffee ground emessis after binge drinking. Normla hemodynamics, Hgb, coagulation profile. No signs of GI bleedig other than hemoccult positive stool. ? gastritis, esophagitis, Rey ulcers, PUG, esophago-gastric varices, ect. Leukocytosos is likely ETOH related EGD to evaluate for above Clear liquid diet today, NPO after midnight Do not suspect ongoing GI bleed at this time Risk factors for liver cirrhosis are there however no overt signs of it on imaging, or blood work Agree with alcohol withdrawal management and PPI.
--- NOTE | 2017-05-06 15:00 | PN ---
Physical Exam: SUBJECTIVE: Patient seen and examined no new complaints. Denies tremor, visual disturbances. Denies chest pain, shortness of breath, fever, chills, nausea, vomiting. OBJECTIVE: Vital Signs Period Temp Pulse Resp BP Sys/Avalos Pulse Ox Last 24 Hr 98.2 F-99.9 F 76-118 20-24 116-159/54-120 94-100 GENERAL: The patient is awake, alert, and fully oriented, in no acute distress. HEAD: Normal with no signs of trauma. LUNGS: Breath sounds equal, clear to auscultation bilaterally, no wheezes, no crackles, no accessory muscle use. HEART: tachycardia and rhythm, S1, S2 without murmur, rub or gallop. ABDOMEN: Soft, nontender, +distended, normoactive bowel sounds, no guarding, no rebound, no hepatosplenomegaly, no masses. EXTREMITIES: 2+ pulses, warm, well-perfused, no edema. NEUROLOGICAL: Cranial nerves II through XII grossly intact. Normal speech, gait not observed. PSYCH: Normal mood, normal affect. SKIN: Warm, dry, normal turgor, no rashes or lesions noted Laboratory Results - last 24 hr 05/05/17 05/05/17 05/05/17 19:00 19:10 19:10 WBC 16.2 H D RBC 4.62 Hgb 14.6 Hct 42.1 MCV 91.2 MCH 31.6 MCHC 34.7 RDW 14.3 Plt Count 262 D MPV 8.4 D Total Counted Neutrophils % 85.3 H Neutrophils % (Manual) Band Neutrophils % Lymphocytes % 7.6 L Lymphocytes % (Manual) Monocytes % 6.6 Monocytes % (Manual) Eosinophils % 0.1 D Eosinophils % (Manual) Basophils % 0.4 PT with INR 11.60 INR 1.03 VBG pH 7.45 H POC VBG pCO2 39.2 POC VBG pO2 50.9 H Mixed VBG HCO3 27.0 H Sodium Potassium Chloride Carbon Dioxide Anion Gap BUN Creatinine Creat Clearance w eGFR Random Glucose Calcium Phosphorus Magnesium Total Bilirubin AST ALT Alkaline Phosphatase Creatine Kinase Creatine Kinase Index CK-MB (CK-2) Troponin I Total Protein Albumin Lipase Stool Occult Blood Alcohol, Quantitative Acetone, Qual HIV 1&2 Antibody Screen HIV P24 Antigen Blood Type Antibody Screen 05/05/17 05/05/17 05/05/17 19:10 19:10 19:10 WBC RBC Hgb Hct MCV MCH MCHC RDW Plt Count MPV Total Counted Neutrophils % Neutrophils % (Manual) Band Neutrophils % Lymphocytes % Lymphocytes % (Manual) Monocytes % Monocytes % (Manual) Eosinophils % Eosinophils % (Manual) Basophils % PT with INR INR VBG pH POC VBG pCO2 POC VBG pO2 Mixed VBG HCO3 Sodium 132 L Potassium 3.8 Chloride 95 L Carbon Dioxide 24 Anion Gap 13 BUN 18 D Creatinine 0.7 D Creat Clearance w eGFR > 60 Random Glucose 158 H Calcium 7.2 L Phosphorus Magnesium Total Bilirubin 0.5 AST 40 H D ALT 35 D Alkaline Phosphatase 85 Creatine Kinase 395 H Creatine Kinase Index 0.8 CK-MB (CK-2) 3.494 Troponin I < 0.02 Total Protein 7.3 Albumin 3.7 Lipase 46 L Stool Occult Blood Alcohol, Quantitative 158.8 H* Acetone, Qual Negative HIV 1&2 Antibody Screen HIV P24 Antigen Blood Type Antibody Screen 05/05/17 05/05/17 05/05/17 19:10 19:10 19:26 WBC RBC Hgb Hct MCV MCH MCHC RDW Plt Count MPV Total Counted Neutrophils % Neutrophils % (Manual) Band Neutrophils % Lymphocytes % Lymphocytes % (Manual) Monocytes % Monocytes % (Manual) Eosinophils % Eosinophils % (Manual) Basophils % PT with INR INR VBG pH POC VBG pCO2 POC VBG pO2 Mixed VBG HCO3 Sodium Potassium Chloride Carbon Dioxide Anion Gap BUN Creatinine Creat Clearance w eGFR Random Glucose Calcium Phosphorus Magnesium Total Bilirubin AST ALT Alkaline Phosphatase Creatine Kinase Cancelled Creatine Kinase Index CK-MB (CK-2) Troponin I Cancelled Total Protein Albumin Lipase Cancelled Stool Occult Blood Alcohol, Quantitative Acetone, Qual HIV 1&2 Antibody Screen HIV P24 Antigen Blood Type O POSITIVE Antibody Screen Negative 05/05/17 05/06/17 05/06/17 20:00 05:00 05:00 WBC 21.7 H D RBC 4.45 Hgb 13.8 Hct 40.7 MCV 91.5 MCH 31.1 MCHC 34.0 RDW 14.1 Plt Count 249 MPV 8.2 Total Counted 100 Neutrophils % No Result Required. Neutrophils % (Manual) 81.0 Band Neutrophils % 1.0 Lymphocytes % No Result Required. Lymphocytes % (Manual) 14.0 Monocytes % Monocytes % (Manual) 2 L Eosinophils % Eosinophils % (Manual) 1.0 Basophils % PT with INR INR VBG pH POC VBG pCO2 POC VBG pO2 Mixed VBG HCO3 Sodium 132 L Potassium 3.8 Chloride 96 L Carbon Dioxide 25 Anion Gap 11 BUN 16 Creatinine 0.9 D Creat Clearance w eGFR > 60 Random Glucose 123 H D Calcium 6.9 L* Phosphorus 2.6 Magnesium 1.5 L D Total Bilirubin 1.1 H D AST 36 ALT 33 Alkaline Phosphatase 86 Creatine Kinase Creatine Kinase Index CK-MB (CK-2) Troponin I Total Protein 6.9 Albumin 3.5 Lipase Stool Occult Blood Positive Alcohol, Quantitative Acetone, Qual HIV 1&2 Antibody Screen HIV P24 Antigen Blood Type Antibody Screen 05/06/17 05:00 WBC RBC Hgb Hct MCV MCH MCHC RDW Plt Count MPV Total Counted Neutrophils % Neutrophils % (Manual) Band Neutrophils % Lymphocytes % Lymphocytes % (Manual) Monocytes % Monocytes % (Manual) Eosinophils % Eosinophils % (Manual) Basophils % PT with INR INR VBG pH POC VBG pCO2 POC VBG pO2 Mixed VBG HCO3 Sodium Potassium Chloride Carbon Dioxide Anion Gap BUN Creatinine Creat Clearance w eGFR Random Glucose Calcium Phosphorus Magnesium Total Bilirubin AST ALT Alkaline Phosphatase Creatine Kinase Creatine Kinase Index CK-MB (CK-2) Troponin I Total Protein Albumin Lipase Stool Occult Blood Alcohol, Quantitative Acetone, Qual HIV 1&2 Antibody Screen Negative HIV P24 Antigen Negative Blood Type Antibody Screen Active Medications Generic Name Dose Route Start Last Admin Trade Name Freq PRN Reason Stop Dose Admin Calcium Carbonate 650 mg 05/06/17 10:00 05/06/17 10:24 Calcium Carbonate - PO 650 mg DAILY HEIDE Administration Chlordiazepoxide HCl 50 mg 05/05/17 23:00 05/06/17 10:25 Librium - PO 05/06/17 17:01 50 mg [id number] HEIDE Administration Chlordiazepoxide HCl 25 mg 05/06/17 23:00 Librium - PO 05/07/17 17:01 [id number] HEIDE Chlordiazepoxide HCl 15 mg 05/07/17 23:00 Librium - PO 05/08/17 17:01 [id number] HEIDE Chlordiazepoxide HCl 25 mg 05/05/17 23:45 Librium - PO 05/08/17 23:44 Q4H PRN WITHDRAWAL(CONT SUBST) Folic Acid 1 mg 05/06/17 10:00 05/06/17 10:24 Folic Acid - PO 1 mg DAILY HEIDE Administration Octreotide Acetate 1,200 mcg/ 500 mls @ 20.83 mls/hr 05/05/17 20:30 05/05/17 20:50 Dextrose IVPB 20.83 mls/hr ASDIR HEIDE Administration 50 MCG/HR Sodium Chloride 1,000 mls @ 125 mls/hr 05/05/17 23:45 05/06/17 13:08 Normal Saline - IV 125 mls/hr ASDIR HEIDE Administration Levothyroxine Sodium 88 mcg 05/06/17 07:00 05/06/17 06:10 Synthroid - PO 88 mcg DAILY@0700 HEIDE Administration Lisinopril 10 mg 05/06/17 10:00 05/06/17 10:26 Prinivil PO 10 mg DAILY HEIDE Administration Multivitamins/Minerals/Vitamin C 1 tab 05/06/17 10:00 05/06/17 10:26 Tab-A-Vit - PO 1 tab DAILY HEIDE Administration Nystatin 500,000 units 05/06/17 06:00 05/06/17 05:12 Nystatin Oral Suspension - PO 500,000 units Q6HPO HEIDE Administration Pantoprazole Sodium 40 mg 05/06/17 10:00 05/06/17 10:32 Protonix Iv IVPUSH 40 mg BID HEIDE Administration Thiamine HCl 100 mg 05/06/17 10:00 05/06/17 10:24 Vitamin B1 - PO 100 mg DAILY HEIDE Administration ASSESSMENT/PLAN: 67 year old male with alcohol dependence, hypothyroid, hypertension presented with hematemesis; stool + guiac. #R/o Upper GI bleed; -IV fluid hydration; -IV protonix bid -zofran IV prn -trend cbc; H/H stable -liver US fatty liver infiltration/hepatocellular disease -liver enzymes wnl -possible EGD r/o possible variceal bleed\ -GI consult #ETOH withdrawl -cont librium protocol -thiamine; folate -counseled on alcohol cessation #hypertension: controlled -cont lisinopril #hypocalcemia: -corrected 7.1; will give 1gm calcium gluconate #hypothyroid: -cont levothyroxine #oral thrush -nystatin swish and swallow NPO; advance diet as tolerated DVT proh; scds; hold AC for now due to bleeds Visit type - Emergency Visit Emergency Visit: Yes ED Registration Date: 05/05/17 Care time: The patient presented to the Emergency Department on the above date and was hospitalized for further evaluation of their emergent condition. - New Patient This patient is new to me today: Yes Date on this admission: 05/06/17 - Critical Care Critical Care patient: No
[2017-05-06] MEDS ORDERED: CALCIUM GLUCONATE 10% - 1,000 MG/10 ML VIAL IVPB ONE (16:20)
[2017-05-06] MEDS ORDERED: MAGNESIUM SULF 50% (8.12 MEQ/2 ML-1 GM VIAL) IVPB ONE (16:20)
[2017-05-06] MEDS ORDERED: NAPH,MB-DB/K PH,MBDB POWDER PACKET PO ONE (17:31)
--- NOTE | 2017-05-07 04:47 | HOSP ---
Subjective - Review of Symptoms Subjective: Paged due to pt wanting to walk out AMA. Pt is only Iranian-speaking, nurse Lilian from [facility] translated due to imminent need. 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 He notes how his family relies upon his income and was worried about being fired due to being in the hospital for too long. Pt also states that an ultrasound was done and he felt that because it was negative for bleeding he had no bleeding anywhere. Pt denies any symptoms at this time; "estoy dayton" ("I am well "). Pt reports being scheduled for an endoscopy tomorrow and how he was told it would be 15:00h for which he was not willing to stay that long. 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 I asked if he would be willing to stay if I could ask to have his endoscopy performed earlier in the day to which he agreed. I also explained to patient how we can write a hospital note on his behalf for work to explain how he was sick in the hospital. Currently, patient is of sound mind and logic. He is oriented to person, place, and time. He displays no tremor and uses a calm demeanor to explain his wants. Pt's gait stable and strength 5/5 in upper extremities. P: --No active withdrawing symptoms noted; CIWA 0 --Will sign out to day team about events above and work note --Will try to ask for morning endoscopy via GI. Physical Examination Vital Signs: Vital Signs Temperature 99.6 F 05/06/17 18:10 Pulse Rate 112 H 05/07/17 00:00 Respiratory Rate 20 05/07/17 00:00 Blood Pressure 130/90 05/07/17 00:00 O2 Sat by Pulse Oximetry (%) 97 05/06/17 21:00 Labs: CBC, BMP 05/06/17 05:00 05/06/17 05:00
[2017-05-07] MEDS: chlordiazePOXIDE HCL 25 MG CAPSULE PO SCH ×2 (05:57→11:21)
[2017-05-07] MEDS: LEVOTHYROXINE NA 88 MCG TABLET (FP) PO SCH (06:06)
[2017-05-07] MEDS: SODIUM CHLORIDE 1,000 ML IV SCH (06:06)
[2017-05-07] MEDS: NYSTATIN 500,000 UNITS/5 ML SUSPENSION PO SCH (06:06)
[2017-05-07 07:31] LABS: BASOPHIL 0.3 % (0-2.0); EOSINOPHIL 0.5 % (0-4.5); MCHC 33.8 g/dl (32.0-35.9); MEAN CELL VOLUME 91.7 fl (80-96); MEAN PLT VOLUME 8.5 fl (7.5-11.1); NEUTROPHILS 84.3 % (42.8-82.8); PLATELET COUNT 204 K/MM3 (134-434); RDW 14.2 % (11.9-15.9); WHITE BLOOD COUNT 18.1 K/mm3 (4.0-10.0)
[2017-05-07 07:52] LABS: ALBUMIN 3.2 g/dl (3.4-5.0); ALK PHOS 78 U/L (45-117); ANION GAP 9 (8-16); BILIRUBIN,TOTAL 1.8 mg/dL (0.2-1.0); CALCIUM 7.1 mg/dL (8.5-10.1); CO2 26 mmol/L (21-32); CREATININE 0.7 mg/dL (0.7-1.3); GLUCOSE,RANDOM 111 mg/dL (74-106); MAGNESIUM 2.5 mg/dL (1.8-2.4); SGOT/AST 33 U/L (15-37); SGPT/ALT 29 U/L (12-78); TOT PROT 6.4 g/dl (6.4-8.2)
[2017-05-07] MEDS ORDERED: FOLIC ACID INJECTION - 1 MG, THIAMINE HCL 100 MG, MULTIVIT INJECTION ADULT 10 ML in SOD... IVPB ONE (08:30)
[2017-05-07] MEDS ORDERED: POTASSIUM CHLORIDE TABS 20 MEQ TABLET.ER (FP) PO ONE (08:39)
--- NOTE | 2017-05-07 08:47 | PN ---
Physical Exam: SUBJECTIVE: Patient seen and examined. Doing well. States mild nausea nd mild agitation. CIWA 2. Although otherwise asymptomatic. Understands scope is likely today OBJECTIVE: Vital Signs Period Temp Pulse Resp BP Sys/Avalos Pulse Ox Last 24 Hr 98.5 F-99.9 F 76-123 18-24 116-144/54-90 97-97 GEN: AAOx3, NAD, Lying in bed comfortably, smiling HEENT: PERRLA, EOMi CV: S1, S2, tachcardic rate LUNG: CTABL ABD: Soft, NT, ND, normoactive BS MSK: No edema, no erythema Active Medications Generic Name Dose Route Start Last Admin Trade Name Freq PRN Reason Stop Dose Admin Calcium Carbonate 650 mg 05/06/17 10:00 05/06/17 10:24 Calcium Carbonate - PO 650 mg DAILY HEIDE Administration Chlordiazepoxide HCl 25 mg 05/06/17 23:00 05/07/17 05:57 Librium - PO 05/07/17 17:01 25 mg [id number] HEIDE Administration Chlordiazepoxide HCl 15 mg 05/07/17 23:00 Librium - PO 05/08/17 17:01 [id number] HEIDE Chlordiazepoxide HCl 25 mg 05/05/17 23:45 Librium - PO 05/08/17 23:44 Q4H PRN WITHDRAWAL(CONT SUBST) Folic Acid 1 mg 05/06/17 10:00 05/06/17 10:24 Folic Acid - PO 1 mg DAILY HEIDE Administration Sodium Chloride 1,000 mls @ 125 mls/hr 05/05/17 23:45 05/07/17 06:06 Normal Saline - IV 125 mls/hr ASDIR HEIDE Administration Folic Acid 1 mg/ Thiamine HCl 1,000 mls @ 125 mls/hr 05/07/17 08:30 100 mg/ Multivitamins/Minerals IVPB 05/07/17 16:29 10 ml/ Sodium Chloride ONCE ONE Levothyroxine Sodium 88 mcg 05/06/17 07:00 05/07/17 06:06 Synthroid - PO 88 mcg DAILY@0700 HEIDE Administration Lisinopril 10 mg 05/06/17 10:00 05/06/17 10:26 Prinivil PO 10 mg DAILY HEIDE Administration Multivitamins/Minerals/Vitamin C 1 tab 05/06/17 10:00 05/06/17 10:26 Tab-A-Vit - PO 1 tab DAILY HEIDE Administration Nystatin 500,000 units 05/06/17 06:00 05/07/17 06:06 Nystatin Oral Suspension - PO 500,000 units Q6HPO HEIDE Administration Pantoprazole Sodium 40 mg 05/06/17 10:00 05/06/17 22:01 Protonix Iv IVPUSH 40 mg BID HEIDE Administration Thiamine HCl 100 mg 05/06/17 10:00 05/06/17 10:24 Vitamin B1 - PO 100 mg DAILY HEIDE Administration ASSESSMENT/PLAN: 67yo M with PMH continuous ETOH dependence, hypothyroid and HTN presented with ETOH withdrawal and coffee ground emesis # UGI Bleed - Presented w/ coffee ground emesis. Due to hx of alcoholism there is concern for variceal bleed, although H/H stable, noncirrhotic labs, and no concern for active bleeding. Other ddx include gastritis or PUD. GI on board, will do scope. Continue IV Protonix 40 BID. # Leukocytosis- No signs of infectious process. Trending down. Likely reactive. No abx # ETOH withdrawal- CIWA 2 for mild nausea and mild agitation. On librium protocol that ends in 1-2 days. Patient understands he has liver disease and its from alcohol, refuses alcohol rehab, refuses going to [facility] to continue detox. Counseled on risks. Continue thiamine, folate, MVI. # Hyperbilirubinemia - Fractionate bili # Hypocalcemia - Corrected calcium 7.7, continue with Ca Carb suplpements # Hyponatremia- On IVNS 125cc/hr, likely from dehydration # Hypocalcemia- Corrected Ca 7.3. start calcium supplements when can tolerate po. # HTN - Well controlled, Continue Lisinopril 10 daily # Hypothyroidism - Continue Levo 88 # FEN - IVNS 125cc/hr, NPO now for procedure # PPx - Hold pharm AC due to bleed, SCDs. On protonix 20 BID IV # Dispo - Scope today. to d/w Dr Devi Angeles MD - PGY1 Internal Medicine Visit type - Emergency Visit Emergency Visit: No - New Patient This patient is new to me today: No - Critical Care Critical Care patient: No - Discharge Referral Referred to [facility] No
[2017-05-07] MEDS: LISINOPRIL 10 MG TABLET (FP) PO SCH (09:37)
[2017-05-07] MEDS: THIAMINE HCL 100 MG TABLET (FP) PO SCH (09:37)
[2017-05-07] MEDS: MULTIVITAMINS (DAILY MVI) TABLET (FP) PO SCH (09:37)
[2017-05-07] MEDS: FOLIC ACID 1 MG TABLET (FP) PO SCH (09:37)
[2017-05-07] MEDS: PANTOPRAZOLE SODIUM 40 MG VIAL IVPUSH SCH (09:38)
[2017-05-07 09:39] VITALS: BP 139/86; PULSE 110; TEMP 98.8
[2017-05-07] MEDS: CALCIUM CARBONATE 650 MG TABLET PO SCH (11:21)
--- NOTE | 2017-05-07 13:30 | DS ---
Physical Exam: SUBJECTIVE: Patient seen and examined. Wants to leave AMA. OBJECTIVE: Vital Signs Period Temp Pulse Resp BP Sys/Avalos Pulse Ox Last 24 Hr 98.8 F-99.6 F 110-123 18-24 129-142/79-90 97-97 PHYSICAL EXAM GEN: AAOx3, NAD, Awake, comfortable. HEENT: PERRLA, EOMi CV: S1, S2, tachcardic rate LUNG: CTABL ABD: Soft, NT, ND, normoactive BS MSK: No edema, no erythema Laboratory Last Values WBC 18.1 K/mm3 (4.0-10.0) H 05/07/17 06:10 RBC 4.33 M/mm3 (4.00-5.60) 05/07/17 06:10 Hgb 13.4 GM/dL (11.7-16.9) 05/07/17 06:10 Hct 39.7 % (35.4-49) 05/07/17 06:10 MCV 91.7 fl (80-96) 05/07/17 06:10 MCH 31.0 pg (25.7-33.7) 05/07/17 06:10 MCHC 33.8 g/dl (32.0-35.9) 05/07/17 06:10 RDW 14.2 % (11.9-15.9) 05/07/17 06:10 Plt Count 204 K/MM3 (134-434) 05/07/17 06:10 MPV 8.5 fl (7.5-11.1) 05/07/17 06:10 Total Counted 100 05/06/17 05:00 Neutrophils % 84.3 % (42.8-82.8) H 05/07/17 06:10 Neutrophils % (Manual) 81.0 % (42.8-82.8) 05/06/17 05:00 Band Neutrophils % 1.0 % 05/06/17 05:00 Lymphocytes % 10.3 % (8-40) D 05/07/17 06:10 Lymphocytes % (Manual) 14.0 % (8-40) 05/06/17 05:00 Monocytes % 4.6 % (3.8-10.2) 05/07/17 06:10 Monocytes % (Manual) 2 % (3.8-10.2) L 05/06/17 05:00 Eosinophils % 0.5 % (0-4.5) D 05/07/17 06:10 Eosinophils % (Manual) 1.0 % (0-4.5) 05/06/17 05:00 Basophils % 0.3 % (0-2.0) 05/07/17 06:10 PT with INR 11.60 SEC (9.98-11.88) 05/05/17 19:10 INR 1.03 (0.82-1.09) 05/05/17 19:10 VBG pH 7.45 (7.32-7.42) H 05/05/17 19:00 POC VBG pCO2 39.2 mmHg (38-52) 05/05/17 19:00 POC VBG pO2 50.9 mmHg (28-48) H 05/05/17 19:00 Mixed VBG HCO3 27.0 meq/L (19-25) H 05/05/17 19:00 Sodium 134 mmol/L (136-145) L 05/07/17 06:10 Potassium 3.4 mmol/L (3.5-5.1) L 05/07/17 06:10 Chloride 99 mmol/L (98-107) 05/07/17 06:10 Carbon Dioxide 26 mmol/L (21-32) 05/07/17 06:10 Anion Gap 9 (8-16) 05/07/17 06:10 BUN 8 mg/dL (7-18) D 05/07/17 06:10 Creatinine 0.7 mg/dL (0.7-1.3) D 05/07/17 06:10 Creat Clearance w eGFR > 60 (>60) 05/07/17 06:10 Random Glucose 111 mg/dL (74-106) H 05/07/17 06:10 Calcium 7.1 mg/dL (8.5-10.1) L 05/07/17 06:10 Phosphorus 2.0 mg/dL (2.5-4.9) L D 05/07/17 06:10 Magnesium 2.5 mg/dL (1.8-2.4) H D 05/07/17 06:10 Total Bilirubin 1.8 mg/dL (0.2-1.0) H D 05/07/17 06:10 AST 33 U/L (15-37) 05/07/17 06:10 ALT 29 U/L (12-78) 05/07/17 06:10 Alkaline Phosphatase 78 U/L (45-117) 05/07/17 06:10 Creatine Kinase 395 IU/L (39-308) H 05/05/17 19:10 Creatine Kinase Index 0.8 % (0.0-5.0) 05/05/17 19:10 CK-MB (CK-2) 3.494 ng/mL (0.5-3.6) 05/05/17 19:10 Troponin I < 0.02 ng/ml (0.00-0.05) 05/05/17 19:10 Total Protein 6.4 g/dl (6.4-8.2) 05/07/17 06:10 Albumin 3.2 g/dl (3.4-5.0) L 05/07/17 06:10 Lipase 46 U/L (73-393) L 05/05/17 19:10 Stool Occult Blood Positive (NEGATIVE) 05/05/17 20:00 Alcohol, Quantitative 158.8 mg/dl (0-5) H* 05/05/17 19:10 Acetone, Qual Negative (NEGATIVE) 05/05/17 19:10 HIV 1&2 Antibody Screen Negative 05/06/17 05:00 HIV P24 Antigen Negative 05/06/17 05:00 Blood Type O POSITIVE 05/05/17 19:26 Antibody Screen Negative 05/05/17 19:26 HOSPITAL COURSE: Date of Admission:05/05/17 Patient Left AMA: 05/07/17 Briefly, Mr. Hubbard is a 67 yr old frisian speaking man with chronic alcohol abuse, HTN, hypothyroidism who presented to the ER with one day of multiple episodes of watery emesis, several episodes of "dark colored" emesis. He was unable to quantify amount of vomiting. He drinks 1L bottle of vodka daily for october years. He has history of withdrawal shaking/tremors. Though the patient has hepatocellular disease on RUQ ultrasound, there was little concern for variceal hemorrhage since patient was hemodynamically stable and the bleeding stopped since admission. Hemoglobin and hematocrit remained stable. Other differentials included gastritis or peptic ulcer disease. The patient was started on IV Protonix 40 BID. He was also started on a Librium protocol due to high risk of withdrawal seizures. Gastroenterology saw the patient and was going to perform an upper endoscopy. Today, the patient stated he wanted to leave Against Medical Advice. Risks of leaving were thoroughly explained to the patient by multiple different providers and with [place] interpeters. The patient understands he is at risk for recurrent bleeding, withdrawal seizures, and severe worsening of his condition. He is able to make his own decisions and is fully aware of the risks and wishes to proceed to sign out AMA. He did not receive his UGD. Dr. Hardin (GI ) was informed. Minutes to complete discharge: 45 Discharge Summary Reason For Visit: GASTROINTESTINAL HEMORRHAGE, ALCOHOL WITHDRAWAL SY Condition: Guarded - Instructions Diet, Activity, Other Instructions: Patient left AMA Disposition: AGAINST MEDICAL ADVICE - Home Medications Comprehensive Discharge Medication List: Ambulatory Orders Levothyroxine [Synthroid -] 88 mcg PO DAILY@0700 #30 tablet 02/04/16 Lisinopril [Prinivil] 10 mg PO DAILY #30 tablet 02/04/16 This patient is new to me today: No Emergency Visit: No Critical Care patient: No - Discharge Referral Referred to [facility] No
--- NOTE | 2017-05-07 13:38 | PN ---
Teaching Attending Note Name of Resident: Nic Angeles ATTENDING PHYSICIAN STATEMENT I saw and evaluated the patient. I reviewed the resident's note and discussed the case with the resident. I agree with the resident's findings and plan as documented. SUBJECTIVE:asymptomatic. states he mild nausea last night but no repeat episodes of vomiting. denies CP, SOB, fever, hcills, auditory/visual hallucinations OBJECTIVE: Last Vital Signs Temp Pulse Resp BP Pulse Ox 98.8 F 110 H 20 139/86 97 05/07/17 09:38 05/07/17 09:38 05/07/17 09:38 05/07/17 09:38 05/07/17 09:00 General NAD CV S1 S2 tachy Lungs CTA B/L no wheezing/rales/rhonchi Abdomen NT/ND, unable to palpate liver edge Extremities no pedal edema, no tremors ASSESSMENT AND PLAN: 67yo M with PMH continuous ETOH dependence, hypothyroid and HTN presented with ETOH withdrawal and coffee ground emesis 1. Upper GI bleed- concern for variceal bleeding with probable liver disease vs PUD. NPO for EGD this AM. cont PPI IV. Hgb stable. no repeated episodes. 2. Leukocytosis-likely reactive. no signs of infection. UA and CXR clear. will hold off abx at this time 3. ETOH withdrawal- CIWA 4. on librium protocol. not interested rehab. counseled on risks of continued drinking which can lead to . cont thiamine/ folate/MVI 4. Hyponatremia- likely dehydration. stable. 5. Hypocalcemia- Corrected Ca 7.3. start calcium supplements when can tolerate po. 6. HTN- controlled. cont lisinopril 7. Hypothyroid- on LT4 8. DVT ppx- SCD. hold pharmacologic anticoagulation in setting of bleeding 9. pt brought up wanting to go home and not complete test. risks of leaving were discussed. verbalized understanding. will think about his decision.
[2017-05-07] MEDS ORDERED: chlordiazePOXIDE 5 MG CAPSULE PO SCH (23:00)
== END 2017-05-07 11:21 | disposition left against medical advice (07) | DRG 378 ==
LOC: JER 18:25 → JERBED 21:25 → J5S 23:08
PROVIDERS: ADMIT Internal Medicine; ATTEND Internal Medicine
PROC: HZ2ZZZZ Detoxification Services for Substance Abuse Treatment (ICD-10-PCS; principal; 2017-05-05)
DX: K92.2 Gastrointestinal hemorrhage, unspecified (principal); F10.239 Alcohol dependence with withdrawal, unspecified; B37.89 Other sites of candidiasis; E87.1 Hypo-osmolality and hyponatremia; E03.9 Hypothyroidism, unspecified; I10 Essential (primary) hypertension; K13.29 Other disturbances of oral epithelium, including tongue; R11.2 Nausea with vomiting, unspecified; E83.51 Hypocalcemia; D72.828 Other elevated white blood cell count; K76.0 Fatty (change of) liver, not elsewhere classified; K76.89 Other specified diseases of liver; E80.6 Other disorders of bilirubin metabolism; K27.9 Peptic ulcer, site unspecified, unspecified as acute or chronic, without hemorrhage or perforation; K29.60 Other gastritis without bleeding
CPT/HCPCS: 36415; 71010-TC; 76705-TC; 80053; 80307; 82009; 82272; 82550; 82553; 82803; 83690; 83735; 84100; 84484; 85025; 85610; 86850; 86900; 86901; 87389; 93005; 93010; 99284-25

== ENCOUNTER 2018-02-26 11:27 | Emergency (ER) | payer SELFPAY ==
[2018-02-26 12:19] VITALS: BP 142/93; PULSE 57; TEMP 99.5; BMI 31.8
[2018-02-26 12:55] LABS: BASO % 0.3 % (0-2.0); HEMATOCRIT 44.6 % (35.4-49); HEMOGLOBIN 15.2 GM/dL (11.7-16.9); MCH 30.6 pg (25.7-33.7); MCHC 34.1 g/dl (32.0-35.9); MEAN CELL VOLUME 89.8 fl (80-96); MEAN PLT VOLUME 8.3 fl (7.5-11.1); MONO % 10.1 % (3.8-10.2); NEUT % 80.6 % (42.8-82.8); PLATELET COUNT 326 K/MM3 (134-434); RBC 4.96 M/mm3 (4.00-5.60); RDW 14.5 % (11.9-15.9); WHITE BLOOD COUNT 15.8 K/mm3 (4.0-10.0)
--- NOTE | 2018-02-26 12:57 | PDOC ---
History of Present Illness - General Chief Complaint: Urinary Problem Stated Complaint: ABD PAIN Time Seen by Provider: 02/26/18 12:27 History Source: Patient Exam Limitations: No Limitations - History of Present Illness Initial Comments: 02/26/18 12:51 Patient is a 68M with history of alcoholism, HTN, hypothyroidism here today complaining of dysuria, suprapubic pain and urinary retention that started four days ago. He states that he's been unable to urinate for the past 2 days. Denies fevers, chills, nausea, vomiting. Denies back and flank pain. Denies prior abdominal surgery. Denies history of BPH or other prostate problems. Patient endorses drinking alcohol for the past four days after a year of sobriety after being admitted for a GI bleed. States that he's been drinking a liter of vodka per day. Last drink today. Past History - Past Medical History Allergies/Adverse Reactions: Allergies Allergy/AdvReac Type Severity Reaction Status Date / Time No Known Allergies Allergy Verified 02/26/18 12:14 Home Medications: Ambulatory Orders Levothyroxine [Synthroid -] 88 mcg PO DAILY@0700 #30 tablet 02/04/16 Lisinopril [Prinivil] 10 mg PO DAILY #30 tablet 02/04/16 Asthma: Yes COPD: No DVT: No HTN: Yes Liver Disease: No Thyroid Disease: Yes (HYPO) - Immunization History Immunization Up to Date: No - Suicide/Smoking/Psychosocial Hx Smoking Status: No Smoking History: Never smoked Have you smoked in the past 12 months: No Number of Cigarettes Smoked Daily: 0 Hx Alcohol Use: Yes (on weekends) Drug/Substance Use Hx: No Substance Use Type: Alcohol Hx Substance Use Treatment: Yes (12 years ago) Review of Systems - Review of Systems Comments:: 02/26/18 12:53 GENERAL/CONSTITUTIONAL: No fever or chills. No weakness. HEAD, EYES, EARS, NOSE AND THROAT: No change in vision. No sore throat. CARDIOVASCULAR: No chest pain or shortness of breath RESPIRATORY: No cough, wheezing, or hemoptysis. GASTROINTESTINAL: No nausea, vomiting, diarrhea or constipation. GENITOURINARY: +dysuria, +retention MUSCULOSKELETAL: No joint or muscle swelling or pain. No neck or back pain. SKIN: No rash NEUROLOGIC: No headache, vertigo, loss of consciousness, or change in strength/ sensation. ENDOCRINE: No increased thirst. No abnormal weight change HEMATOLOGIC/LYMPHATIC: No anemia, easy bleeding, or history of blood clots. ALLERGIC/IMMUNOLOGIC: No hives or skin allergy. *Physical Exam - Vital Signs Last Vital Signs Temp Pulse Resp BP Pulse Ox 99.5 F 57 L 18 142/93 99 02/26/18 12:16 02/26/18 12:16 02/26/18 12:16 02/26/18 12:16 02/26/18 12:16 - Physical Exam Comments: 02/26/18 12:55 GENERAL: Awake, alert, and fully oriented, in no acute distress HEAD: No signs of trauma, normocephalic, atraumatic EYES: PERRLA, EOMI, sclera anicteric, conjunctiva clear ENT: Auricles normal inspection, hearing grossly normal, nares patent, oropharynx clear without exudates. Moist mucosa NECK: Normal ROM, supple, no lymphadenopathy, JVD, or masses LUNGS: No distress, speaks full sentences, clear to auscultation bilaterally HEART: Regular rate and rhythm, normal S1 and S2, no murmurs, rubs or gallops, peripheral pulses normal and equal bilaterally. ABDOMEN: Distended lower abdomen, +suprapubic tenderness, no cva tenderness, normoactive bowel sounds. No guarding, no rebound. No masses EXTREMITIES: Normal inspection, Normal range of motion, no edema. No clubbing or cyanosis. NEUROLOGICAL: Cranial nerves II through XII grossly intact. Normal speech, no focal sensorimotor deficits SKIN: Warm, Dry, normal turgor, no rashes or lesions noted. ED Treatment Course - LABORATORY CBC & Chemistry Diagram: 02/26/18 12:47 02/26/18 12:47 Medical Decision Making - Medical Decision Making 02/26/18 12:56 Patient is a 68M with history of HTN, hypothyroidism, GI bleed, alcoholism here today with urinary retention. Vital signs normal and stable. Will evaluate for concurrent UTI and KALEB. West placed, 1600cc drained, clamped for now. Will likely d/c with antibiotics and urology follow up. 02/26/18 13:33 Laboratory Tests 02/26/18 02/26/18 02/26/18 12:47 12:47 12:47 WBC 15.8 H Hgb 15.2 Plt Count 326 D Creatinine 1.0 Urine Nitrite Negative Ur Leukocyte Esterase Negative Urine WBC (Auto) <1 Urine RBC (Auto) 4 CBC shows leukocytosis. CMP shows normal kidney function, mild hyponatremia. UA clear. However, given patient's retention and symptoms, will treat. Will give outpatient urology follow up and discharge with leg bag. Return precautions given. Patient instructed to cease drinking and given referral to detox. Patient expressed understanding. *DC/Admit/Observation/Transfer Diagnosis at time of Disposition: Urinary retention - Discharge Dispostion Disposition: HOME Condition at time of disposition: Good Decision to Admit order: No - Referrals Referrals: Redd Archer MD [Staff Physician] - - Patient Instructions Printed Discharge Instructions: DI for Urinary Retention in Men, How to Care for Your West Catheter -- Male Additional Instructions: Llame alexander mismo al urlogo (Dr. Archer) en zaman documentacin para concertar kristopher sarah. Por favor, regrese si tiene algn sntoma nuevo, que empeora o preocupa, especialmente fiebre, escalofros y dolor creciente. Print Language: CHINESE - Post Discharge Activity
[2018-02-26 12:59] LABS: URINE APPEARANCE CLEAR; URINE BILIRUBIN NEGATIVE (<2.0 mg/dL); URINE COLOR LTYELLOW; URINE GLUCOSE (UA) NEGATIVE (NEGATIVE); URINE KETONE TRACE (NEGATIVE); URINE LEUK ESTERASE NEGATIVE (NEGATIVE); URINE NITRITE NEGATIVE (NEGATIVE); URINE PROTEIN NEGATIVE (NEGATIVE); URINE UROBILINOGEN NEGATIVE mg/dL (0.2-1.0)
[2018-02-26 13:15] LABS: URINE MUCUS RARE
--- NOTE | 2018-02-26 13:20 | PDOC ---
Attending Attestation - Resident Resident Name: Redd Almeida - ED Attending Attestation I have performed the following: I have examined & evaluated the patient, The case was reviewed & discussed with the resident, I agree w/resident's findings & plan - HPI HPI: 02/26/18 13:17 68-year-old male with history of hypertension and hypothyroidism, history of alcohol abuse in remission until 4 days ago when he relapsed and started drinking vodka daily presents now with 1 day of difficulty urinating in the setting of 4 days of progressively decreasing urinary stream. No fevers or chills or flank pain, reports increasing urgency and slow urine stream over the last 4 days, over the last 24 hours has had only drops of urine with overflow incontinence. Reports sexual activity 2 days ago, but denies any other injuries or bleeding from the urethra. Denies any known history of BPH or prostate surgeries in the past. - Physicial Exam PE: 02/26/18 13:18 Labs as noted vitals as noted, afebrile. Alcohol on breath, otherwise coherent and cooperative No jaundice or pallor Heart is regular, lungs are clear Abdomen initially with suprapubic fullness and tenderness to palpation, West catheter placed and drained 1500 mL of clear urine with improved suprapubic discomfort. No CVA tenderness, the catheter was clamped. No edema Neurologically intact - Medical Decision Making 02/26/18 13:19 68-year-old male presents with urinary retention, mild alcohol intoxication. Rule out infection, rule out renal injury, rule out electrolyte abnormality. Labs, urinalysis IV fluid hydration Reassess
[2018-02-26 13:30] LABS: ALBUMIN 3.8 g/dl (3.4-5.0); ALK PHOS 86 U/L (45-117); ANION GAP 15 MMOL/L (8-16); BILIRUBIN,TOTAL 0.6 mg/dL (0.2-1); BLOOD UREA NITROGEN 17 mg/dL (7-18); CALCIUM 7.5 mg/dL (8.5-10.1); CHLORIDE 93 mmol/L (98-107); CO2 20 mmol/L (21-32); GLUCOSE,RANDOM 123 mg/dL (74-106); POTASSIUM 3.9 mmol/L (3.5-5.1); SGOT/AST 43 U/L (15-37); SGPT/ALT 29 U/L (13-61); SODIUM 129 mmol/L (136-145); TOT PROT 7.6 g/dl (6.4-8.2)
[2018-02-26] MEDS ORDERED: CEPHALEXIN MONOHYDRATE 500 MG CAPSULE (UD) PO ONE (13:42)
[2018-02-26] MEDS ORDERED: CEPHALEXIN MONOHYDRATE 500 MG CAPSULE (UD) ONE (13:52)
== END 2018-02-26 14:15 | disposition home or self-care (01) ==
LOC: JER 11:27
PROC: 0T9B70Z Drainage of Bladder with Drainage Device, Via Natural or Artificial Opening (ICD-10-PCS; principal; 2018-02-26)
DX: N39.0 Urinary tract infection, site not specified (principal); R33.8 Other retention of urine; I10 Essential (primary) hypertension; E03.9 Hypothyroidism, unspecified; F10.10 Alcohol abuse, uncomplicated
CPT/HCPCS: 36415; 80053; 81003; 81015; 85025; 87086; 99281-25

== ENCOUNTER 2019-12-09 13:31 | Inpatient (IN) | payer OTHER ==
--- NOTE | 2019-12-09 13:39 | PDOC ---
History of Present Illness - General Stated Complaint: URINARY PROBLEM Time Seen by Provider: 12/09/19 13:37 - History of Present Illness Initial Comments: 12/09/19 13:37 68M with history of alcoholism, HTN, hypothyroidism, urinary retention came back to the ED w 4d urinary retention and mild suprapubic pain. See previous note for hx. Notified by nurse that olson drained over 5L during earlier ED visit. Called pt back to the ED to be re-evaluated and admitted. Given 1L NS, 1L LR. Olson in place, tracking I/O Admit m/s for urinary retention, post-void diuresis No PC Past History - Medical History Allergies/Adverse Reactions: Allergies Allergy/AdvReac Type Severity Reaction Status Date / Time No Known Allergies Allergy Verified 12/09/19 08:32 Home Medications: Ambulatory Orders Amlodipine Besylate 10 mg PO DAILY 12/09/19 Atorvastatin Ca [Lipitor] 20 mg PO DAILY 12/09/19 Levothyroxine [Synthroid -] 100 mcg PO DAILY 12/09/19 Asthma: Yes COPD: No DVT: No HTN: Yes Liver Disease: No Thyroid Disease: Yes (HYPO) - Immunization History Immunization Up to Date: No - Psycho-Social/Smoking History Smoking Status: No Smoking History: Unknown if ever smoked Have you smoked in the past 12 months: No Number of Cigarettes Smoked Daily: 0 Review of Systems - Review of Systems Constitutional: No: Chills, Fever HEENTM: No: Eye Pain, Ear Discharge Respiratory: No: Cough, Shortness of Breath Cardiac (ROS): No: Chest Pain, Lightheadedness ABD/GI: Yes: Abdominal Distended. No: Nausea, Vomiting : No: Burning, Flank Pain Musculoskeletal: No: Back Pain, Joint Pain Integumentary: No: Bruising, Dryness Neurological: No: Headache, Seizure Psychiatric: No: Anxiety, Depression Endocrine: No: Intolerance to Cold, Intolerance to Heat Hematologic/Lymphatic: No: Anemia, Blood Clots *Physical Exam - Physical Exam General Appearance: Yes: Nourished, Appropriately Dressed. No: Apparent Distress HEENT: positive: EOMI, NAVEEN, Normal Voice, Hearing Grossly Normal. negative: Scleral Icterus (R), Scleral Icterus (L) Respiratory/Chest: positive: Lungs Clear, Normal Breath Sounds. negative: Chest Tender, Respiratory Distress Cardiovascular: positive: Regular Rhythm, S1, S2, Tachycardia. negative: Edema, Murmur Gastrointestinal/Abdominal: positive: Normal Bowel Sounds, Soft, Distended, Other (olson in place). negative: Tender Integumentary: positive: Normal Color, Warm Neurologic: positive: Fully Oriented, Alert, Normal Mood/Affect, Normal Response, Responsive ED Treatment Course - LABORATORY CBC & Chemistry Diagram: 12/09/19 14:30 Medical Decision Making - Medical Decision Making 12/09/19 19:56 Given 1L LR. Olson in place, tracking I/O Not hypotensive, denies lightheadedness. Admitted m/s for urinary retention, post-obstructive diuresis, earlier etoh intoxication No PCP Discharge - Discharge Information Problems reviewed: Yes Clinical Impression/Diagnosis: Urinary retention, Postobstructive diuresis Condition: Improved - Follow up/Referral - Patient Discharge Instructions - Post Discharge Activity
[2019-12-09] MEDS ORDERED: LACTATED RINGERS SOLUTION 1,000 ML/1,000 ML INFUS.BAG IV STA (14:17)
--- NOTE | 2019-12-09 14:22 | PDOC ---
*Physical Exam - Vital Signs Last Vital Signs Temp Pulse Resp BP Pulse Ox 98.7 F 108 H 20 142/83 99 12/09/19 13:42 12/09/19 13:42 12/09/19 13:42 12/09/19 13:42 12/09/19 13:42 - Physical Exam 12/09/19 14:20 vss alert, nad olson in place abd benign Heart Score/ECG Review #1 ECG reviewed & interpreted by me at: 14:56 General ECG Interpretation: Sinus Rhythm, Normal Rate (89), Normal Intervals (qtc 508), No acute ischemic changes (TWI precordial leads) ED Treatment Course - LABORATORY CBC & Chemistry Diagram: 12/09/19 14:30 Medical Decision Making - Medical Decision Making 12/09/19 14:20 69y/o M seen earlier for urinary retention with normal labs. Pt had high volume diuresis of 5L and inadvertently discharged. He was called back and presents for admission, fluid repletion, electrolyte monitoring. repeat chem ivf admit Discharge - Discharge Information Problems reviewed: Yes Clinical Impression/Diagnosis: Urinary retention, Postobstructive diuresis Condition: Improved - Follow up/Referral - Patient Discharge Instructions - Post Discharge Activity
[2019-12-09 15:28] LABS: ALBUMIN 3.2 g/dl (3.4-5.0); BILIRUBIN,TOTAL 0.7 mg/dL (0.2-1); BLOOD UREA NITROGEN 11.8 mg/dL (7-18); CALCIUM 8.2 mg/dL (8.5-10.1); CREATININE 0.7 mg/dL (0.55-1.3); POTASSIUM 3.4 mmol/L (3.5-5.1); TOT PROT 6.2 g/dl (6.4-8.2)
--- NOTE | 2019-12-09 16:13 | PN ---
Teaching Attending Note Name of Resident: Tasha Lloyd ATTENDING PHYSICIAN STATEMENT I saw and evaluated the patient. I reviewed the resident's note and discussed the case with the resident. I agree with the resident's findings and plan as documented. SUBJECTIVE: 68 year old male with known history of alcoholism, hypertension, hypothyroidism, urinary retention presenting with lower abdominal pain. Found to be retaining urine. Indwelling catheter inserted and 2.9 liters of fluid drained spontaneously OBJECTIVE: ASSESSMENT AND PLAN: Admitted for work up of urinary retention - urologist - indwelling catheter to remain inserted for now - UA and send urine culture if not yet done - cont IVF (gentle) and monitor I and O -
[2019-12-09] MEDS ORDERED: POTASSIUM CHLORIDE TABS 20 MEQ TABLET.ER (FP) PO ONE ×2 (17:33→17:48)
[2019-12-09] MEDS: LACTATED RINGERS SOLUTION 1,000 ML IV SCH (17:37)
[2019-12-09] MEDS ORDERED: LORazepam 0.5 MG TABLET PO PRN (17:43)
[2019-12-09] MEDS ORDERED: CEFTRIAXONE 1 GM in DEXTROSE 5%-WATER - 50 ML IVPB SCH (17:45)
[2019-12-09] MEDS ORDERED: CEFTRIAXONE 1 GM/50 ML BAG ONE (17:48)
--- NOTE | 2019-12-09 18:15 | HP ---
CHIEF COMPLAINT: makes little urine PCP: BRIAN Sanz HISTORY OF PRESENT ILLNESS: Patient is a 69 year old male with past medical history of chronic EtOH use, HTN, hypothyroidism, urinary retention, presented to the ED because of 3 days of difficulty urinating, described as making little urine, accompanied by abdominal bloatedness. Patient reported it happened before as well, usually when he drinks for days consistently. He also reports frequency, but denies any hematuria or burning. Patient came to the ED this morning, where he was found to have urinary retention of 2.9L, Olson was inserted and drained over 5L. Patient felt much better right after. He was instructed to follow up with urology, was told to follow up in a few days, so patient came back to the ED. Patient denies any fevers, chills, headache, dizziness. chest pain, nausea, vomiting, shortness of breath, abdominal pain, diarrhea. ER course was notable for: (1)Olson inserted at the ED - 5L output (2)Renal/bladder US - moderate bilateral hydronephrosis, R>L, believed to be related to a markedly distended urinary bladder and urinary retention. (3) Recent Travel: denies PAST MEDICAL HISTORY: HTN Hypothyroidism PAST SURGICAL HISTORY: none Social History: Smoking: previous smoker, quit 20 years ago Alcohol: 4 beers/day Drugs: denies Allergies No Known Allergies Allergy (Verified 12/09/19 08:32) HOME MEDICATIONS: Home Medications Medication Instructions Recorded Levothyroxine [Synthroid -] 88 mcg PO DAILY@0700 #30 tablet 02/04/16 Lisinopril [Prinivil] 10 mg PO DAILY #30 tablet 02/04/16 REVIEW OF SYSTEMS CONSTITUTIONAL: Absent: fever, chills, diaphoresis, generalized weakness, malaise, loss of appetite, weight change HEENT: Absent: rhinorrhea, nasal congestion, throat pain, throat swelling, difficulty swallowing, mouth swelling, ear pain, eye pain, visual changes CARDIOVASCULAR: Absent: chest pain, syncope, palpitations, irregular heart rate, lightheadedness, peripheral edema RESPIRATORY: Absent: cough, shortness of breath, dyspnea with exertion, orthopnea, wheezing, stridor, hemoptysis GASTROINTESTINAL: Absent: abdominal pain, abdominal distension, nausea, vomiting, diarrhea, constipation, melena, hematochezia GENITOURINARY: Absent: dysuria, frequency, urgency, hesitancy, hematuria, flank pain, genital pain MUSCULOSKELETAL: Absent: myalgia, arthralgia, joint swelling, back pain, neck pain SKIN: Absent: rash, itching, pallor HEMATOLOGIC/IMMUNOLOGIC: Absent: easy bleeding, easy bruising, lymphadenopathy, frequent infections ENDOCRINE: Absent: unexplained weight gain, unexplained weight loss, heat intolerance, cold intolerance NEUROLOGIC: Absent: headache, focal weakness or paresthesias, dizziness, unsteady gait, seizure, mental status changes, bladder or bowel incontinence PSYCHIATRIC: Absent: anxiety, depression, suicidal or homicidal ideation, hallucinations. PHYSICAL EXAMINATION Vital Signs - 24 hr 12/09/19 12/09/19 13:42 15:00 Temperature 98.7 F Pulse Rate 108 H Pulse Rate [ 89 Apical] Respiratory 20 Rate Blood Pressure 142/83 O2 Sat by Pulse 99 Oximetry (%) GENERAL: Awake, alert, and fully oriented, in no acute distress. HEAD: Normal with no signs of trauma. EYES: PERRLA, EOMI, sclera anicteric, conjunctiva clear. EARS, NOSE, THROAT: Moist mucous membranes. NECK: Normal range of motion, supple LUNGS: Breath sounds equal, clear to auscultation bilaterally. HEART: Tachycardic, normal S1 and S2 without murmur, rub or gallop. ABDOMEN: Soft, nontender, not distended, normoactive bowel sounds. MATTHEW: no fissures, no hemorrhoids, normal rectal tone, no blood in examining finger, +prostate enlarged, nontender MUSCULOSKELETAL: Normal range of motion at all joints. LOWER EXTREMITIES: 2+ pulses, warm, well-perfused. +1 pitting edema SKIN: Warm, dry, normal turgor Laboratory Results - last 24 hr 12/09/19 14:30 Sodium 137 Potassium 3.4 L Chloride 98 Carbon Dioxide 30 Anion Gap 9 BUN 11.8 Creatinine 0.7 Est GFR (CKD-EPI)AfAm 112.38 Est GFR (CKD-EPI)NonAf 96.97 Random Glucose 116 H Calcium 8.2 L Total Bilirubin 0.7 AST 94 H ALT 64 H Alkaline Phosphatase 69 Total Protein 6.2 L Albumin 3.2 L ASSESSMENT/PLAN: Patient is a 69 year old male with past medical history of chronic EtOH use, HTN, hypothyroidism, urinary retention, presented to the ED because of 3 days of difficulty urinating, described as making little urine, accompanied by abdominal bloatedness. #Urinary retention likely 2/2 BPH -Renal/bladder US - moderate bilateral hydronephrosis, R>L, believed to be related to a markedly distended urinary bladder and urinary retention. -Urinary retention pre olson US 2.9L, drained over 5L during earlier ED visit -Rectal exam revealed enlarged prostate -Urology (Dr. Archer) consulted. #Transaminitis likely 2/2 EtOH use -RUQ US 2016 revealed fatty liver vs HCD -will repeat abdominal US -Hepatitis panel ordered -monitor LFTs #EtOH use -CIWA 0 -will monitor signs of withdrawal -Ativan PRN for now -Folic acid/Thiamine/MV daily #UTI -likely 2/2 urinary retention -will start IV Ceftriaxone -Urine cultures #HTN -Continue Amlodipine 10mg daily #Hypothyroidism -Continue home med 100mcg daily #FEN -IV LR @83cc/hr -routine bmp monitoring -Sodium restricted diet #Prophylaxis -Lovenox 40mg sq daily #Disposition -full code -med surg Visit type - Emergency Visit Emergency Visit: Yes ED Registration Date: 12/09/19 Care time: The patient presented to the Emergency Department on the above date and was hospitalized for further evaluation of their emergent condition. - New Patient This patient is new to me today: Yes Date on this admission: 12/09/19 - Critical Care Critical Care patient: No ATTENDING PHYSICIAN STATEMENT I saw and evaluated the patient. I reviewed the resident's note and discussed the case with the resident. I agree with the resident's findings and plan as documented. SUBJECTIVE: OBJECTIVE: ASSESSMENT AND PLAN:
[2019-12-09 18:28] LABS: EPI CELLS 11 /uL (0-25.1); HYALINE CASTS 2 /uL (0-3.1); PH,URINE 7.5 (5.0-8.0); URINE APPEARANCE CLEAR; URINE BACTERIA 21 /uL (0-1359); URINE BILIRUBIN NEGATIVE (NEGATIVE); URINE COLOR ORANGE; URINE GLUCOSE (UA) TRACE (NEGATIVE); URINE KETONE NEGATIVE (NEGATIVE); URINE LEUK ESTERASE 2+ (NEGATIVE); URINE NITRITE NEGATIVE (NEGATIVE); URINE PROTEIN 2+ (NEGATIVE); URINE RBC 5084 /uL (0-23.9); URINE WBC 56 /uL (0-25.8)
--- NOTE | 2019-12-09 21:33 | CON.GI ---
Consult Consult Specialty:: Gastroenterology Referred by:: Dr Marychuy Mendoza Reason for Consultation:: abnormal LFTs and GI bleeding - History of Present Illness Chief Complaint: urinary retention History of Present Illness: 69M with longstanding h/o heavy alcohol abuse and previous visits for DTs and GI bleeding returns for management of urinary retention, He denies hematemesis, abdominal pain or vomiting. He was treated for DTs here on [address] Jonatan Patel. He was seen by GI, Dr Hardin for coffee ground emesis in 05/20 but no endoscopies were undertaken. Waldemar reports that he has never had an EGD or a colonoscopy. - History Source History Provided By: Patient Limitations to Obtaining History: Language Barrier - Past Medical History Cardio/Vascular: Yes: HTN, Hyperlipdemia Gastrointestinal: Yes: GI Bleed (hematemesis in 05/20) Psych: Yes: Addictions (alcoholism with DTs) Endocrine: Yes: Hypothyroidism - Past Surgical History Past Surgical History: Yes: None - Alcohol/Substance Use Hx Alcohol Use: Yes (daily vodka ) History of Substance Use: reports: None - Smoking History Smoking history: Never smoked Have you smoked in the past 12 months: No Aproximately how many cigarettes per day: 0 - Social History Usual Living Arrangement: With Spouse ADL: Independent 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 Place of : Other ([facility]) Home Medications - Allergies Allergies/Adverse Reactions: Allergies Allergy/AdvReac Type Severity Reaction Status Date / Time No Known Allergies Allergy Verified 12/09/19 08:32 - Home Medications Home Medications: Ambulatory Orders Amlodipine Besylate 10 mg PO DAILY 12/09/19 Atorvastatin Ca [Lipitor] 20 mg PO DAILY 12/09/19 Levothyroxine [Synthroid -] 100 mcg PO DAILY 12/09/19 Family Medical History Family History: Unable to Obtain Review of Systems Unable to obtain ROS, reason: language barrier Physical Exam-GI Vital Signs: Vital Signs Temperature 98.3 F 12/09/19 17:37 Pulse Rate 105 H 12/09/19 17:37 Respiratory Rate 16 12/09/19 18:26 Blood Pressure 124/73 12/09/19 17:37 O2 Sat by Pulse Oximetry (%) 99 12/09/19 18:26 CBC,CMP Sodium 137 mmol/L (136-145) 12/09/19 14:30 Potassium 3.4 mmol/L (3.5-5.1) L 12/09/19 14:30 Chloride 98 mmol/L (98-107) 12/09/19 14:30 Carbon Dioxide 30 mmol/L (21-32) 12/09/19 14:30 Anion Gap 9 MMOL/L (8-16) 12/09/19 14:30 BUN 11.8 mg/dL (7-18) 12/09/19 14:30 Creatinine 0.7 mg/dL (0.55-1.3) 12/09/19 14:30 Est GFR (CKD-EPI)AfAm 112.38 12/09/19 14:30 Est GFR (CKD-EPI)NonAf 96.97 12/09/19 14:30 Random Glucose 116 mg/dL (74-106) H 12/09/19 14:30 Calcium 8.2 mg/dL (8.5-10.1) L 12/09/19 14:30 Total Bilirubin 0.7 mg/dL (0.2-1) 12/09/19 14:30 AST 94 U/L (15-37) H 12/09/19 14:30 ALT 64 U/L (13-61) H 12/09/19 14:30 Alkaline Phosphatase 69 U/L (45-117) 12/09/19 14:30 Total Protein 6.2 g/dl (6.4-8.2) L 12/09/19 14:30 Albumin 3.2 g/dl (3.4-5.0) L 12/09/19 14:30 Current Medications Generic Name Dose Route Start Last Admin Trade Name Toyin PRN Reason Stop Dose Admin Amlodipine Besylate 10 mg 12/10/19 10:00 Norvasc - PO DAILY [facility] Folic Acid 1 mg 12/10/19 10:00 Folic Acid - PO DAILY [facility] Lactated Ringer's 1,000 mls @ 83 mls/hr 12/09/19 17:30 12/09/19 17:37 Lactated Ringers Solution IV 83 mls/hr ASDIR [facility] Administration Ceftriaxone Sodium 1 gm/ 50 mls @ 100 mls/hr 12/09/19 17:45 12/09/19 17:58 Dextrose IVPB 100 mls/hr DAILY [facility] Administration Levothyroxine Sodium 100 mcg 12/10/19 07:00 Synthroid - PO DAILY@0700 [facility] Lorazepam 1 mg 12/09/19 17:43 Ativan - PO Q3H PRN WITHDRAWAL(CONT SUBST) Multivitamins/Minerals/Vitamin C 1 tab 12/10/19 10:00 Tab-A-Vit - PO DAILY [facility] Thiamine HCl 100 mg 12/10/19 10:00 Vitamin B1 - PO DAILY [facility] Constitutional: Yes: Calm Eyes: Yes: Conjunctiva Clear HENT: Yes: Normocephalic Neck: Yes: Trachea Midline Cardiovascular: Yes: Regular Rate and Rhythm Respiratory: Yes: CTA Bilaterally Gastrointestinal Inspection: Yes: Distention ...Auscultate: Yes: Normoactive Bowel Sounds ...Palpate: Yes: Soft, Other (nontender) ...Rectal Exam: Yes: Guaiac Positive (2+ prostate, brown strongly guaiac positive stool) Edema: No Neurological: Yes: Alert Labs: CBC, BMP 12/09/19 14:30 Laboratory Tests 06/24/11 08/31/15 08/31/15 23:15 05:00 05:00 WBC Hgb 15.6 14.8 Hct MCV Plt Count Total Bilirubin 0.6 AST ALT 47 COVID-19 ([facility]) 11/08/15 01/31/16 06/13/16 14:58 10:49 10:52 WBC Hgb Hct MCV Plt Count Total Bilirubin AST 68 H 34 62 H ALT 52 H COVID-19 ([facility]) 05/07/17 05/07/17 02/26/18 06:10 06:10 12:47 WBC Hgb 13.4 15.2 Hct MCV Plt Count Total Bilirubin 1.8 H D AST 33 ALT 29 COVID-19 ([facility]) 02/26/18 12/09/19 12/09/19 12:47 08:30 08:30 WBC 11.5 H Hgb 13.4 Hct 40.7 MCV 92.5 Plt Count 258 D Total Bilirubin 0.6 AST 43 H 117 H ALT 29 70 H COVID-19 ([facility]) 12/09/19 12/09/19 14:30 14:30 WBC Hgb Hct MCV Plt Count Total Bilirubin AST 94 H ALT 64 H COVID-19 ([facility]) Pending Imaging - Results Ultrasound: Report Reviewed ( Final Report US ABDOMEN US -LIMITED Show Printer-Friendly Version Patient Name: Jeremy Black : 1950 ID: [id number] Study Date: 09-Dec-2019 19:22 Norberto Leavitt Name: JEREMY BLACK DEPARTMENT OF RADIOLOGY Phys: Marychuy Willoughby RES : 1950 Age: 69 Sex: M [facility] Acct: [id number] Loc: [address] Exam Date: 12/09/19 Status: [place] [address] Unit Number: [id number] EXAM#: TYPE/EXAM: RESULT: [id number] US/ABDOMEN US -LIMITED Transaminitis. History of alcohol abuse Right upper abdomen ultrasound. Compared to prior upper abdomen ultrasound dated 05/06/2017 The liver measures 17.8 cm in sagittal length with a moderately dense echotexture. Gallbladder is adequately distended without intraluminal stones or thickening of its wall. No intra or extrahepatic bile duct dilatation is seen. The right kidney measures 11.5 cm sagittal length with mild hydronephrosis and without gross evidence of stones. Nonvisualization of the pancreas likely due to overlying bowel gas Nonvisualization of the abdominal aorta. Visualized portion of the inferior vena cava appears u nremarkable. Normal flow in the main portal vein. IMPRESSION: Nonvisualization of the pancreas and abdominal aorta. Borderline hepatomegaly with moderately dense echotexture compatible with fatty infiltration versus hepatocellular disease. Mild right renal hydronephrosis Reported By: Supa Sam MD 12/09/192040 Technologist: Jesica Swanosn Transcribed Date/Time: 12/09/192040 Health Administrator: Supa Sam Printed Date/Time: By: Signed by: Supa Sam Signed on: 09-Dec-2019 20:42) Problem List - Problems (1) Abnormal transaminases Code(s): R74.8 - ABNORMAL LEVELS OF OTHER SERUM ENZYMES (2) Alcoholism /alcohol abuse Code(s): F10.20 - ALCOHOL DEPENDENCE, UNCOMPLICATED (3) Occult blood in stools Code(s): R19.5 - OTHER FECAL ABNORMALITIES (4) Alcoholic hepatitis without ascites Code(s): K70.10 - ALCOHOLIC HEPATITIS WITHOUT ASCITES (5) Hyperlipidemia Code(s): E78.5 - HYPERLIPIDEMIA, UNSPECIFIED (6) Hypothyroidism Code(s): E03.9 - HYPOTHYROIDISM, UNSPECIFIED (7) Urinary retention Code(s): R33.9 - RETENTION OF URINE, UNSPECIFIED (8) Alcohol abuse, continuous Code(s): F10.10 - ALCOHOL ABUSE, UNCOMPLICATED (9) Hypertension Code(s): I10 - ESSENTIAL (PRIMARY) HYPERTENSION Assessment/Plan Impression: - Abnormal transaminases elevations due alcoholic hepatitis but will screen for other contributing etiologies - Occult bleeding is likely due to alcoholic gastritis or portal gastropathy but varices need to be excluded. He is also due for a colon cancer screening colonoscopy - Chronic alcoholism and at risk for DTs Plan: -- [place] Librium regimen to prevent DTs -- Start PPI -- Serial LFTs and workup for other coexisting liver diseases -- EGD when COVID status permits for possible rubber band ligation of varices -- Ultimately needs a colonoscopy -- Alcoholism counseling- perhaps transfer to [facility] when acute care is done. I strongly advised him to absolutely stop alcohol usage -- AFP -- TSH, T4, CPK -- Fibrosure -- Thiamine
[2019-12-09] MEDS ORDERED: PANTOPRAZOLE 40 MG TABLET ONE (22:17)
[2019-12-09] MEDS: PANTOPRAZOLE 40 MG TABLET PO SCH (22:18)
--- NOTE | 2019-12-10 00:04 | CONS ---
DATE OF CONSULTATION: DATE OF DICTATION: 12/09/2019 HISTORY OF PRESENT ILLNESS: Patient is a 69-year-old male who presented with acute urinary retention. West catheter was placed and several liters of clear yellow urine was drained. The patient does have history of prostatism including frequency, urgency, hesitancy, and terminal dribbling. Also had feelings of complete bladder emptying. A renal and pelvic ultrasound revealed bilateral hydroureteronephrosis, right greater than left, believed to be secondary to distended urinary bladder. The patient's BUN and creatinine were 11.8 over 0.7. Random glucose was 116. Urinalysis revealed 3+ blood, nitrate negative. A urine culture is pending. Patient's abdomen is presently soft, West is patent, urine is clear. Patient does have past history of hypertension and hypothyroidism. He does drink 3-4 cans of beer per day. He denies tobacco use or drug use. He denies any allergies. Presently he is on Synthroid and lisinopril. IMPRESSION: At present urinary retention with secondary bilateral hydroureteronephrosis. Will continue with West to drainage. Patient should undergo a cystoscopy with a possible transurethral resection of prostate. This will when patient is medically stable. Will follow with you. AZAR RAJPUT M.D. [id number]
[2019-12-10] MEDS ORDERED: LEVOTHYROXINE NA 100 MCG TABLET (FP) PO SCH (07:00)
[2019-12-10] MEDS ORDERED: chlordiazePOXIDE HCL 10 MG CAPSULE PO PRN (07:12)
[2019-12-10] MEDS ORDERED: LEVOTHYROXINE NA 25 MCG TABLET (FP) ONE (07:35)
--- NOTE | 2019-12-10 07:39 | PN ---
Teaching Attending Note Name of Resident: Marychuy Willoughby ATTENDING PHYSICIAN STATEMENT I saw and evaluated the patient. I reviewed the resident's note and discussed the case with the resident. I agree with the resident's findings and plan as documented. SUBJECTIVE: Comfortable denies any hallucinations or tremors OBJECTIVE: Vital Signs Temperature 98.7 F 12/10/19 07:12 Pulse Rate 90 12/10/19 07:12 Respiratory Rate 18 12/10/19 07:12 Blood Pressure 133/83 12/10/19 07:12 O2 Sat by Pulse Oximetry (%) 98 12/10/19 01:00 General: Elderly man, comfortable, not in distress HEENT mucous membranes moist, no anemia, no jaundice, PERRLA, no nystagmus Neck: No JVD, supple, no bruit, thyroid palpably normal, normal carotid pulsations./bilateral wheezing/bilateral basal rales. CVS: S1-S2 regular no murmur/gallop/rub Abdomen: West's catheter draining clear urine, Nondistended, soft, bowel sounds present. 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 , no gross motor sensory deficit CBC,CMP Sodium 137 mmol/L (136-145) 12/09/19 14:30 Potassium 3.4 mmol/L (3.5-5.1) L 12/09/19 14:30 Chloride 98 mmol/L (98-107) 12/09/19 14:30 Carbon Dioxide 30 mmol/L (21-32) 12/09/19 14:30 Anion Gap 9 MMOL/L (8-16) 12/09/19 14:30 BUN 11.8 mg/dL (7-18) 12/09/19 14:30 Creatinine 0.7 mg/dL (0.55-1.3) 12/09/19 14:30 Est GFR (CKD-EPI)AfAm 112.38 12/09/19 14:30 Est GFR (CKD-EPI)NonAf 96.97 12/09/19 14:30 Random Glucose 116 mg/dL (74-106) H 12/09/19 14:30 Calcium 8.2 mg/dL (8.5-10.1) L 12/09/19 14:30 Total Bilirubin 0.7 mg/dL (0.2-1) 12/09/19 14:30 AST 94 U/L (15-37) H 12/09/19 14:30 ALT 64 U/L (13-61) H 12/09/19 14:30 Alkaline Phosphatase 69 U/L (45-117) 12/09/19 14:30 Total Protein 6.2 g/dl (6.4-8.2) L 12/09/19 14:30 Albumin 3.2 g/dl (3.4-5.0) L 12/09/19 14:30 Abdominal ultrasound: Density echotexture of liver, bilateral hydronephrosis Active Medications Amlodipine Besylate (Norvasc -) 10 mg PO DAILY [facility] Chlordiazepoxide HCl (Librium -) 25 mg PO Q8H [facility] Stop: 12/11/19 21:01 Chlordiazepoxide HCl (Librium -) 10 mg PO Q12H PRN PRN Reason: Signs/symptoms of Withdrawal Stop: 12/13/19 23:59 Chlordiazepoxide HCl (Librium -) 10 mg PO Q8H PRN PRN Reason: Signs/symptoms of Withdrawal Stop: 12/12/19 23:59 Chlordiazepoxide HCl (Librium -) 15 mg PO Q8H [facility] Stop: 12/12/19 21:01 Chlordiazepoxide HCl (Librium -) 10 mg PO Q8H [facility] Stop: 12/13/19 21:01 Chlordiazepoxide HCl (Librium -) 10 mg PO ONCE ONE Stop: 12/14/19 05:01 Folic Acid (Folic Acid -) 1 mg PO DAILY [facility] Lactated Ringer's (Lactated Ringers Solution) 1,000 mls @ 83 mls/hr IV ASDIR [facility] Last Admin: 12/09/19 17:37 Dose: 83 mls/hr Documented by: Levothyroxine Sodium (Synthroid -) 100 mcg PO DAILY@0700 [facility] Multivitamins/Minerals/Vitamin C (Tab-A-Vit -) 1 tab PO DAILY [facility] Pantoprazole Sodium (Protonix -) 40 mg PO BID [facility] Last Admin: 12/09/19 22:18 Dose: 40 mg Documented by: Thiamine HCl (Vitamin B1 -) 100 mg PO DAILY [facility] ASSESSMENT AND PLAN: 69 years old male history of EtOH abuse DTs yesterday presented with urinary retention with UTI and alcohol intoxication: Active issue: 1. Obstructive uropathy: Patient is post obstructive diuresis follow-up input output chart, electrolytes status post West's catheter evaluated by recommended cystoscopy and TURP once medically stable and COVID-19 negative, maintain continue West's catheter, IV ceftriaxone follow-up BMP daily. 2. Alcohol intoxication/withdrawal: Continue Librium protocol 3. Transaminitis: Evaluated by GI as per SGOT/SGPT most likely due to alcohol abuse follow-up serial LFTs and pending work-up for hepatitis 4. Hypothyroidism continue levothyroxine TSH elevated will optimize levothyroxine dose. 5. EKG shows ST-T changes in inferior lateral leads, follow-up troponin I and repeat EKG if indicated will consider echocardiogram patient is asymptomatic now denies any chest pain: SCD for DVT prophylaxis Discussed with the team
[2019-12-10] MEDS ORDERED: chlordiazePOXIDE 5 MG CAPSULE ONE (07:52)
[2019-12-10 08:08] LABS: BASO % 0.7 % (0-2.0); HEMATOCRIT 39.2 % (35.4-49); LYMPH % 20.2 % (8-40); MCH 30.8 pg (25.7-33.7); MCHC 33.1 g/dl (32.0-35.9); MEAN CELL VOLUME 92.8 fl (80-96); MEAN PLT VOLUME 7.8 fl (7.5-11.1); MONO % 13.7 % (3.8-10.2); NEUT % 60.4 % (42.8-82.8); PLATELET COUNT 244 K/MM3 (134-434); RBC 4.23 M/mm3 (4.00-5.60); RDW 14.2 % (11.9-15.9); WHITE BLOOD COUNT 10.4 K/mm3 (4.0-10.0)
[2019-12-10 08:16] LABS: INR 1.06 (0.83-1.09); PROTHROMBIN TIME (PATIENT) 12.5 SEC (9.7-13.0)
[2019-12-10 08:19] LABS: ACTIVATED PTT 28.4 SECONDS (25.2-36.5)
[2019-12-10 08:35] LABS: ALBUMIN 3.2 g/dl (3.4-5.0); ALK PHOS 72 U/L (45-117); ANION GAP 8 MMOL/L (8-16); BILIRUBIN,DIRECT 0.2 mg/dL (0.0-0.2); BILIRUBIN,TOTAL 0.7 mg/dL (0.2-1); BLOOD UREA NITROGEN 8.2 mg/dL (7-18); CALCIUM 8.3 mg/dL (8.5-10.1); CHLORIDE 98 mmol/L (98-107); CO2 34 mmol/L (21-32); CREATININE 0.7 mg/dL (0.55-1.3); GLUCOSE,RANDOM 104 mg/dL (74-106); IRON SERUM 51 ug/dL (50-175); MAGNESIUM 1.7 mg/dL (1.8-2.4); PHOSPHOROUS 3.6 mg/dL (2.5-4.9); POTASSIUM 3.8 mmol/L (3.5-5.1); SGOT/AST 87 U/L (15-37); SGPT/ALT 66 U/L (13-61); SODIUM 139 mmol/L (136-145); TOT PROT 6.4 g/dl (6.4-8.2); TOTAL IRON BINDING CAPACITY 256 ug/dL (250-450)
--- NOTE | 2019-12-10 09:03 | PN ---
Progress Note (short form) - Note Progress Note: GI coverage note: EGD deferred as COVID 19 status is still pending. Also had elevated TSH suggesting noncompliance with his levothyroxin Problem List - Problems (1) Abnormal transaminases Code(s): R74.8 - ABNORMAL LEVELS OF OTHER SERUM ENZYMES (2) Alcoholism /alcohol abuse Code(s): F10.20 - ALCOHOL DEPENDENCE, UNCOMPLICATED (3) Occult blood in stools Code(s): R19.5 - OTHER FECAL ABNORMALITIES (4) Alcoholic hepatitis without ascites Code(s): K70.10 - ALCOHOLIC HEPATITIS WITHOUT ASCITES (5) Hyperlipidemia Code(s): E78.5 - HYPERLIPIDEMIA, UNSPECIFIED (6) Hypothyroidism Code(s): E03.9 - HYPOTHYROIDISM, UNSPECIFIED (7) Urinary retention Code(s): R33.9 - RETENTION OF URINE, UNSPECIFIED (8) Alcohol abuse, continuous Code(s): F10.10 - ALCOHOL ABUSE, UNCOMPLICATED (9) Hypertension Code(s): I10 - ESSENTIAL (PRIMARY) HYPERTENSION
--- NOTE | 2019-12-10 09:18 | PN ---
Physical Exam: SUBJECTIVE: Patient seen and examined OBJECTIVE: Vital Signs Temperature 98.1 F 12/10/19 18:29 Pulse Rate 75 12/10/19 18:29 Respiratory Rate 18 12/10/19 18:29 Blood Pressure 132/71 12/10/19 18:29 O2 Sat by Pulse Oximetry (%) 97 12/10/19 11:53 GENERAL: Awake, alert, and fully oriented, in no acute distress. HEAD: Normal with no signs of trauma. EYES: PERRLA, EOMI, sclera anicteric, conjunctiva clear. EARS, NOSE, THROAT: Moist mucous membranes. NECK: Normal range of motion, supple LUNGS: Breath sounds equal, clear to auscultation bilaterally. HEART: Tachycardic, normal S1 and S2 without murmur, rub or gallop. ABDOMEN: Soft, nontender, not distended, normoactive bowel sounds. MUSCULOSKELETAL: Normal range of motion at all joints. LOWER EXTREMITIES: 2+ pulses, warm, well-perfused. +1 pitting edema SKIN: Warm, dry, normal turgor Laboratory Results - last 24 hr 12/09/19 12/09/19 12/09/19 14:30 18:00 18:00 WBC RBC Hgb Hct MCV MCH MCHC RDW Plt Count MPV Absolute Neuts (auto) Neutrophils % Lymphocytes % Monocytes % Eosinophils % Basophils % Nucleated RBC % PT with INR INR PTT (Actin FS) Sodium 137 Potassium 3.4 L Chloride 98 Carbon Dioxide 30 Anion Gap 9 BUN 11.8 Creatinine 0.7 Est GFR (CKD-EPI)AfAm 112.38 Est GFR (CKD-EPI)NonAf 96.97 Random Glucose 116 H Calcium 8.2 L Phosphorus Magnesium Iron TIBC Iron Saturation Unsaturated IBC Ferritin Total Bilirubin 0.7 Direct Bilirubin AST 94 H ALT 64 H Alkaline Phosphatase 69 Creatine Kinase Creatine Kinase Index CK-MB (CK-2) Total Protein 6.2 L Albumin 3.2 L TSH Thyroxine (T4) Urine Color [place] Urine Appearance Clear Urine pH 7.5 D Ur Specific [place] 1.007 L Urine Protein 2+ H Urine Glucose (UA) Trace Urine Ketones Negative Urine Blood 3+ H Urine Nitrite Negative Urine Bilirubin Negative Urine Urobilinogen 1.0 Ur Leukocyte Esterase 2+ H Urine WBC (Auto) 56 Urine RBC (Auto) 5084 Urine Casts (Auto) 2 U Epithel Cells (Auto) 11 Urine Bacteria (Auto) 21 Stool Occult Blood Positive 12/10/19 12/10/19 12/10/19 07:30 07:30 07:30 WBC 10.4 H RBC 4.23 Hgb 13.0 Hct 39.2 MCV 92.8 MCH 30.8 MCHC 33.1 RDW 14.2 Plt Count 244 MPV 7.8 Absolute Neuts (auto) 6.3 Neutrophils % 60.4 Lymphocytes % 20.2 D Monocytes % 13.7 H Eosinophils % 5.0 H D Basophils % 0.7 Nucleated RBC % 0 PT with INR 12.50 INR 1.06 PTT (Actin FS) 28.4 Sodium 139 Potassium 3.8 Chloride 98 Carbon Dioxide 34 H Anion Gap 8 BUN 8.2 Creatinine 0.7 Est GFR (CKD-EPI)AfAm 112.38 Est GFR (CKD-EPI)NonAf 96.97 Random Glucose 104 Calcium 8.3 L Phosphorus 3.6 Magnesium 1.7 L Iron 51 TIBC 256 Iron Saturation 19 Unsaturated IBC 205 Ferritin 268.6 Total Bilirubin 0.7 Direct Bilirubin 0.2 AST 87 H ALT 66 H Alkaline Phosphatase 72 Creatine Kinase 281 Creatine Kinase Index 1.8 CK-MB (CK-2) 5.3 H Total Protein 6.4 Albumin 3.2 L TSH 11.50 H D Thyroxine (T4) 4.7 Urine Color Urine Appearance Urine pH Ur Specific [place] Urine Protein Urine Glucose (UA) Urine Ketones Urine Blood Urine Nitrite Urine Bilirubin Urine Urobilinogen Ur Leukocyte Esterase Urine WBC (Auto) Urine RBC (Auto) Urine Casts (Auto) U Epithel Cells (Auto) Urine Bacteria (Auto) Stool Occult Blood Active Medications Generic Name Dose Route Start Last Admin Trade Name Santhoshq PRN Reason Stop Dose Admin Amlodipine Besylate 10 mg 12/10/19 10:00 Norvasc - PO DAILY HEIDE Chlordiazepoxide HCl 25 mg 12/10/19 13:00 Librium - PO 12/11/19 21:01 Q8H HEIDE Chlordiazepoxide HCl 10 mg 12/13/19 00:00 Librium - PO 12/13/19 23:59 Q12H PRN Signs/symptoms of Withdrawal Chlordiazepoxide HCl 10 mg 12/10/19 07:12 12/10/19 07:58 Librium - PO 12/12/19 23:59 10 mg Q8H PRN Administration Signs/symptoms of Withdrawal Chlordiazepoxide HCl 15 mg 12/12/19 05:00 Librium - PO 12/12/19 21:01 Q8H HEIDE Chlordiazepoxide HCl 10 mg 12/13/19 05:00 Librium - PO 12/13/19 21:01 Q8H HEIDE Chlordiazepoxide HCl 10 mg 12/14/19 05:00 Librium - PO 12/14/19 05:01 ONCE ONE Folic Acid 1 mg 12/10/19 10:00 Folic Acid - PO DAILY [facility] Lactated Ringer's 1,000 mls @ 83 mls/hr 12/09/19 17:30 12/09/19 17:37 Lactated Ringers Solution IV 83 mls/hr ASDIR HEIDE Administration Levothyroxine Sodium 100 mcg 12/10/19 07:00 12/10/19 07:42 Synthroid - PO 100 mcg DAILY@0700 HEIDE Administration Multivitamins/Minerals/Vitamin C 1 tab 12/10/19 10:00 Tab-A-Vit - PO DAILY [facility] Pantoprazole Sodium 40 mg 12/09/19 22:00 12/09/19 22:18 Protonix - PO 40 mg BID HEIDE Administration Thiamine HCl 100 mg 12/10/19 10:00 Vitamin B1 - PO DAILY [facility] ASSESSMENT/PLAN: Patient is a 69 year old male with past medical history of chronic EtOH use, HTN, hypothyroidism, urinary retention, presented to the ED because of 3 days of difficulty urinating, described as making little urine, accompanied by abdominal bloatedness. #Urinary retention likely 2/2 BPH -Renal/bladder US (12/08) - moderate bilateral hydronephrosis, R>L, believed to be related to a markedly distended urinary bladder and urinary retention. -Renal/bladder US (12/09) - mild bilateral hydronephrosis. Prostatic enlargement. -Urinary retention pre olson US 2.9L, drained over 5L during earlier ED visit -Rectal exam revealed enlarged prostate -Urology (Dr. Archer) consulted. #Transaminitis likely 2/2 EtOH use -RUQ US : borderline hepatomegaly with moderately dense echotexture compatible with fatty infiltration vs hepatocellular disease -Hepatitis panel pending -AFP pending -monitor LFTs -EGD/Colonoscopy recommended. Patient refusing procedure at this time. -GI (Dr. Gaines) consulted. Recommendations appreciated. #EtOH use -CIWA 0 -will monitor signs of withdrawal -Librium protocol initiated -PPI -Folic acid/Thiamine/MV daily #UTI -likely 2/2 urinary retention -will start IV Ceftriaxone -Urine cultures #HTN -Continue Amlodipine 10mg daily #Hypothyroidism -TSH 11 -will increase home synthroid to 125mcg daily #FEN -IV LR @83cc/hr -routine bmp monitoring -Sodium restricted diet #Prophylaxis -SCDs #Disposition -full code -med surg Visit type - Emergency Visit Emergency Visit: Yes ED Registration Date: 12/09/19 Care time: The patient presented to the Emergency Department on the above date and was hospitalized for further evaluation of their emergent condition. - New Patient This patient is new to me today: No - Critical Care Critical Care patient: No ATTENDING PHYSICIAN STATEMENT I saw and evaluated the patient. I reviewed the resident's note and discussed the case with the resident. I agree with the resident's findings and plan as documented. SUBJECTIVE: OBJECTIVE: ASSESSMENT AND PLAN:
[2019-12-10] MEDS ORDERED: PT OWN MED DRAWER 7, Y5N ONE (09:32)
[2019-12-10] MEDS ORDERED: MULTIVITAMINS (DAILY MVI) TABLET (FP) ONE (09:35)
[2019-12-10] MEDS ORDERED: THIAMINE HCL 100 MG TABLET (FP) ONE (09:35)
[2019-12-10] MEDS ORDERED: PANTOPRAZOLE 40 MG TABLET ONE (09:35)
[2019-12-10] MEDS ORDERED: FOLIC ACID 1 MG TABLET (FP) ONE (09:36)
[2019-12-10] MEDS: FOLIC ACID 1 MG TABLET (FP) PO SCH (09:40)
[2019-12-10] MEDS: amLODIPine BESYLATE 10 MG TABLET (FP) PO SCH (09:40)
[2019-12-10] MEDS: MULTIVITAMINS (DAILY MVI) TABLET (FP) PO SCH (09:41)
[2019-12-10] MEDS: PANTOPRAZOLE 40 MG TABLET PO SCH ×2 (09:41→21:12)
[2019-12-10] MEDS: THIAMINE HCL 100 MG TABLET (FP) PO SCH (09:41)
[2019-12-10] MEDS ORDERED: ENOXAPARIN NA (PORCINE) 40 MG/0.4 ML DISP.SYRIN SQ SCH (10:00)
[2019-12-10 10:02] LABS: ANISOCYTOSIS 1+; MACROCYTOSIS 0; PLATELET ESTIMATE NORMAL
--- NOTE | 2019-12-10 10:42 | EKG ---
Test Reason : Blood Pressure : / mmHG Vent. Rate : 089 BPM Atrial Rate : 089 BPM P-R Int : 128 ms QRS Dur : 098 ms QT Int : 418 ms P-R-T Axes : 033 -30 -29 degrees QTc Int : 508 ms NORMAL SINUS RHYTHM LEFT AXIS DEVIATION T WAVE ABNORMALITY, CONSIDER ANTEROLATERAL ISCHEMIA ABNORMAL ECG WHEN COMPARED WITH ECG OF 05-MAY-2017 19:49, NONSPECIFIC T WAVE ABNORMALITY NOW EVIDENT IN INFERIOR LEADS T WAVE INVERSION NOW EVIDENT IN ANTEROLATERAL LEADS QT HAS LENGTHENED Confirmed by MD South, Sandip ([id number]) on 12/10/2019 10:42:15 AM Referred By: Confirmed By:Sandip Dia MD
--- NOTE | 2019-12-10 12:22 | PN.GI ---
GI Progress Note Subjective: GI NOte ( covering the GI service) : Using a staff soup person I informed Rc of the need for an EGD and a colonoscopy given his occult bleeding. I explained that there are risks of perforation and hemorrhage. He has declined both. Using the pipe coremaker I emphasized the need to stop alcohol usage and risks of hemorrhage from varices. - Objective Vital Signs: Vital Signs Temperature 98.3 F 12/10/19 10:04 Pulse Rate 96 H 12/10/19 10:04 Respiratory Rate 16 12/10/19 11:53 Blood Pressure 135/84 12/10/19 10:04 O2 Sat by Pulse Oximetry (%) 97 12/10/19 11:53 CBC, BMP 12/10/19 07:30 12/10/19 07:30 Current Medications Generic Name Dose Route Start Last Admin Trade Name Freq PRN Reason Stop Dose Admin Amlodipine Besylate 10 mg 12/10/19 10:00 12/10/19 09:40 Norvasc - PO 10 mg DAILY HEIDE Administration Chlordiazepoxide HCl 25 mg 12/10/19 13:00 Librium - PO 12/11/19 21:01 Q8H HEIDE Chlordiazepoxide HCl 10 mg 12/13/19 00:00 Librium - PO 12/13/19 23:59 Q12H PRN Signs/symptoms of Withdrawal Chlordiazepoxide HCl 10 mg 12/10/19 07:12 12/10/19 07:58 Librium - PO 12/12/19 23:59 10 mg Q8H PRN Administration Signs/symptoms of Withdrawal Chlordiazepoxide HCl 15 mg 12/12/19 05:00 Librium - PO 12/12/19 21:01 Q8H HEIDE Chlordiazepoxide HCl 10 mg 12/13/19 05:00 Librium - PO 12/13/19 21:01 Q8H HEIDE Chlordiazepoxide HCl 10 mg 12/14/19 05:00 Librium - PO 12/14/19 05:01 ONCE ONE Folic Acid 1 mg 12/10/19 10:00 12/10/19 09:40 Folic Acid - PO 1 mg DAILY HEIDE Administration Lactated Ringer's 1,000 mls @ 83 mls/hr 12/09/19 17:30 12/09/19 17:37 Lactated Ringers Solution IV 83 mls/hr ASDIR HEIDE Administration Levothyroxine Sodium 125 mcg 12/10/19 10:04 Synthroid - PO DAILY@0700 HEIDE Multivitamins/Minerals/Vitamin C 1 tab 12/10/19 10:00 12/10/19 09:41 Tab-A-Vit - PO 1 tab DAILY [facility]IDE Administration Pantoprazole Sodium 40 mg 12/09/19 22:00 12/10/19 09:41 Protonix - PO 40 mg BID HEIDE Administration Thiamine HCl 100 mg 12/10/19 10:00 12/10/19 09:41 Vitamin B1 - PO 100 mg DAILY HEIDE Administration Constitutional: Anxious Eyes: Yes: Conjunctiva Clear ...Auscultate: Yes: Normoactive Bowel Sounds ...Palpate: Yes: Soft, Other (nontender) Labs: CBC, BMP 12/10/19 07:30 12/10/19 07:30 INR, PTT INR 1.06 (0.83-1.09) 12/10/19 07:30 Assessment/Plan Impression: - Abnormal transaminases elevations due alcoholic hepatitis. Await screen for other contributing etiologies - Occult bleeding is likely due to alcoholic gastritis or portal gastropathy but varices need to be excluded. He is also due for a colon cancer screening colonoscopy. He has declined both studies - Chronic alcoholism and at risk for DTs - Hypothyroid Plan: -- Continue Librium regimen to prevent DTs -- Continue PPI -- Serial LFTs -- Await workup for other coexisting liver diseases -- EGD for possible rubber band ligation of varices if isidoro patient changes his mind. Please then recall GI -- Alcoholism counseling- perhaps transfer to [facility] when acute care is done. I strongly advised him to absolutely stop alcohol usage -- AFP pending Problem List - Problems (1) Abnormal transaminases Code(s): R74.8 - ABNORMAL LEVELS OF OTHER SERUM ENZYMES (2) Alcoholism /alcohol abuse Code(s): F10.20 - ALCOHOL DEPENDENCE, UNCOMPLICATED (3) Occult blood in stools Code(s): R19.5 - OTHER FECAL ABNORMALITIES (4) Alcoholic hepatitis without ascites Code(s): K70.10 - ALCOHOLIC HEPATITIS WITHOUT ASCITES (5) Hyperlipidemia Code(s): E78.5 - HYPERLIPIDEMIA, UNSPECIFIED (6) Hypothyroidism Code(s): E03.9 - HYPOTHYROIDISM, UNSPECIFIED (7) Urinary retention Code(s): R33.9 - RETENTION OF URINE, UNSPECIFIED (8) Alcohol abuse, continuous Code(s): F10.10 - ALCOHOL ABUSE, UNCOMPLICATED (9) Hypertension Code(s): I10 - ESSENTIAL (PRIMARY) HYPERTENSION
[2019-12-10] MEDS ORDERED: TAMSULOSIN HCL 0.4 MG CAP PO ONE (12:33)
[2019-12-10] MEDS: chlordiazePOXIDE HCL 25 MG CAPSULE PO SCH ×2 (12:49→21:12)
[2019-12-10] MEDS: LACTATED RINGERS SOLUTION 1,000 ML IV SCH ×2 (12:54→21:12)
--- NOTE | 2019-12-10 15:33 | EKG ---
Test Reason : Blood Pressure : / mmHG Vent. Rate : 090 BPM Atrial Rate : 090 BPM P-R Int : 130 ms QRS Dur : 092 ms QT Int : 386 ms P-R-T Axes : 030 -30 007 degrees QTc Int : 472 ms NORMAL SINUS RHYTHM LEFT AXIS DEVIATION NONSPECIFIC T WAVE ABNORMALITY PROLONGED QT ABNORMAL ECG WHEN COMPARED WITH ECG OF 09-DEC-2019 14:56, NONSPECIFIC T WAVE ABNORMALITY HAS REPLACED INVERTED T WAVES IN ANTEROLATERAL LEADS Confirmed by MD South, Sandip ([id number]) on 12/10/2019 3:33:11 PM Referred By: Raquel KEVIN Confirmed By:Sandip Dia MD
[2019-12-10 18:37] VITALS: BMI 29.3
--- NOTE | 2019-12-10 23:31 | PN ---
DATE OF VISIT: DATE OF DICTATION: 12/10/2019 The patient is a 69-year-old male admitted with urinary retention, has history of prostatism with interminable dribbling and feelings of incomplete bladder emptying. His white count is 10.4, hemoglobin and hematocrit were 13/39.2, BUN/creatinine is 8.2/0.7. The patient will be commenced on Flomax 0.4 mg daily and will discontinue West in a.m. and give trial in voiding. Will repeat bladder scan 6 hours after West removal. If there is more than 200 mL of residual urine, will reinsert West and recommend a cystoscopy. Tiffany [id number]
[2019-12-10] MEDS: CEFTRIAXONE 1 GM in DEXTROSE 5%-WATER - 50 ML IVPB SCH (23:34)
[2019-12-11] MEDS: LEVOTHYROXINE NA 125 MCG TABLET (FP) PO SCH (06:18)
[2019-12-11] MEDS: chlordiazePOXIDE HCL 25 MG CAPSULE PO SCH ×3 (06:18→21:51)
[2019-12-11] MEDS: LACTATED RINGERS SOLUTION 1,000 ML IV SCH (06:18)
[2019-12-11 08:04] LABS: BASO % 0.9 % (0-2.0); EOS % 9.2 % (0-4.5); HEMOGLOBIN 12.7 GM/dL (11.7-16.9); LYMPH % 28.3 % (8-40); MCHC 33.5 g/dl (32.0-35.9); MEAN CELL VOLUME 92.5 fl (80-96); MEAN PLT VOLUME 7.4 fl (7.5-11.1); MONO % 12.3 % (3.8-10.2); NEUT % 49.3 % (42.8-82.8); PLATELET COUNT 237 K/MM3 (134-434); RDW 14.5 % (11.9-15.9); WHITE BLOOD COUNT 8.4 K/mm3 (4.0-10.0)
--- NOTE | 2019-12-11 08:05 | PN ---
Teaching Attending Note Name of Resident: Marychuy Willoughby ATTENDING PHYSICIAN STATEMENT I saw and evaluated the patient. I reviewed the resident's note and discussed the case with the resident. I agree with the resident's findings and plan as documented. SUBJECTIVE: OBJECTIVE: Vital Signs Temperature 99 F 12/11/19 06:00 Pulse Rate 74 12/11/19 06:00 Respiratory Rate 20 12/11/19 06:00 Blood Pressure 135/78 12/11/19 06:00 O2 Sat by Pulse Oximetry (%) 98 12/10/19 21:00 Vital Signs Temp 99 F 12/11/19 06:00 Pulse 74 12/11/19 06:00 Resp 20 12/11/19 06:00 BP 135/78 12/11/19 06:00 Pulse Ox 98 12/10/19 21:00 Intake & Output 12/10/19 12/10/19 12/11/19 11:59 23:59 11:59 Intake Total 240 1146 Output Total 2150 Balance -1910 1146 Weight 182 lb Intake: IV 996 Lactated Ringers Solution 996 1,000 ml @ 83 mls/hr IV ASDIR HEIDE Rx#:[id number] IVPB 50 Oral 240 100 Output: Urine 2150 West 2150 Other: Voiding Method Indwelling Catheter Indwelling Catheter Indwelling Catheter Bowel Movement No Height 5 ft 6 in Body Mass Index (BMI) 29.3 General: Elderly man, comfortable, not in distress HEENT mucous membranes moist, no anemia, no jaundice, PERRLA, no nystagmus Neck: No JVD, supple, no bruit, thyroid palpably normal, normal carotid pulsations./bilateral wheezing/bilateral basal rales. CVS: S1-S2 regular no murmur/gallop/rub Abdomen: West's catheter draining clear urine, Nondistended, soft, bowel sounds present. 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: AO X3 , no gross motor sensory deficit CBC, BMP 12/11/19 07:04 12/11/19 07:04 Active Medications Amlodipine Besylate (Norvasc -) 10 mg PO DAILY [facility] Last Admin: 12/10/19 09:40 Dose: 10 mg Documented by: Chlordiazepoxide HCl (Librium -) 25 mg PO Q8H [facility] Stop: 12/11/19 21:01 Last Admin: 12/11/19 06:18 Dose: 25 mg Documented by: Chlordiazepoxide HCl (Librium -) 10 mg PO Q12H PRN PRN Reason: Signs/symptoms of Withdrawal Stop: 12/13/19 23:59 Chlordiazepoxide HCl (Librium -) 10 mg PO Q8H PRN PRN Reason: Signs/symptoms of Withdrawal Stop: 12/12/19 23:59 Last Admin: 12/10/19 07:58 Dose: 10 mg Documented by: Chlordiazepoxide HCl (Librium -) 15 mg PO Q8H [facility] Stop: 12/12/19 21:01 Chlordiazepoxide HCl (Librium -) 10 mg PO Q8H [facility] Stop: 12/13/19 21:01 Chlordiazepoxide HCl (Librium -) 10 mg PO ONCE ONE Stop: 12/14/19 05:01 Folic Acid (Folic Acid -) 1 mg PO DAILY [facility] Last Admin: 12/10/19 09:40 Dose: 1 mg Documented by: Lactated Ringer's (Lactated Ringers Solution) 1,000 mls @ 83 mls/hr IV ASDIR [facility] Last Admin: 12/11/19 06:18 Dose: 83 mls/hr Documented by: Ceftriaxone Sodium 1 gm/ (Dextrose) 50 mls @ 100 mls/hr IVPB DAILY [facility] Last Admin: 12/10/19 23:34 Dose: 100 mls/hr Documented by: Levothyroxine Sodium (Synthroid -) 125 mcg PO DAILY@0700 [facility] Last Admin: 12/11/19 06:18 Dose: 125 mcg Documented by: Multivitamins/Minerals/Vitamin C (Tab-A-Vit -) 1 tab PO DAILY [facility] Last Admin: 12/10/19 09:41 Dose: 1 tab Documented by: Pantoprazole Sodium (Protonix -) 40 mg PO BID [facility] Last Admin: 12/10/19 21:12 Dose: 40 mg Documented by: Thiamine HCl (Vitamin B1 -) 100 mg PO DAILY [facility] Last Admin: 12/10/19 09:41 Dose: 100 mg Documented by: ASSESSMENT AND PLAN:69 years old male history of EtOH abuse DTs yesterday presented with urinary retention with UTI and alcohol intoxication: Active issue: 1. Obstructive uropathy: Patient is post obstructive diuresis follow-up input output chart, electrolytes status post West's catheter evaluated by recommended cystoscopy and TURP once medically stable and COVID-19 negative, maintain continue West's catheter, IV ceftriaxone follow-up BMP daily. 2. Alcohol intoxication/withdrawal: Continue Librium protocol 3. Transaminitis: Evaluated by GI as per SGOT/SGPT most likely due to alcohol abuse follow-up serial LFTs and pending work-up for hepatitis 4. Hypothyroidism continue levothyroxine TSH elevated will optimize levothyroxine dose. 5. EKG shows ST-T changes in inferior lateral leads, 6. Hypokalemia repleted 7. Hypomagnesemia repleted SCD for DVT prophylaxis Discussed with the team
[2019-12-11 08:28] LABS: ALBUMIN 2.8 g/dl (3.4-5.0); ALK PHOS 65 U/L (45-117); ANION GAP 7 MMOL/L (8-16); BILIRUBIN,DIRECT 0.1 mg/dL (0.0-0.2); BILIRUBIN,TOTAL 0.4 mg/dL (0.2-1); BLOOD UREA NITROGEN 11.7 mg/dL (7-18); CALCIUM 7.7 mg/dL (8.5-10.1); CHLORIDE 99 mmol/L (98-107); CO2 32 mmol/L (21-32); CREATININE 0.7 mg/dL (0.55-1.3); GLUCOSE,RANDOM 95 mg/dL (74-106); MAGNESIUM 1.7 mg/dL (1.8-2.4); SGOT/AST 56 U/L (15-37); SGPT/ALT 56 U/L (13-61); SODIUM 137 mmol/L (136-145); TOT PROT 5.8 g/dl (6.4-8.2)
[2019-12-11] MEDS: MULTIVITAMINS (DAILY MVI) TABLET (FP) PO SCH (09:02)
[2019-12-11] MEDS: PANTOPRAZOLE 40 MG TABLET PO SCH ×2 (09:02→21:51)
[2019-12-11] MEDS: amLODIPine BESYLATE 10 MG TABLET (FP) PO SCH (09:02)
[2019-12-11] MEDS: THIAMINE HCL 100 MG TABLET (FP) PO SCH (09:02)
[2019-12-11] MEDS: FOLIC ACID 1 MG TABLET (FP) PO SCH (09:02)
[2019-12-11] MEDS ORDERED: DEXTROSE 5%-WATER - 50 ML IVPB ONE (10:03)
[2019-12-11] MEDS ORDERED: cefTRIAXone SODIUM 1 GM VIAL ONE (10:03)
[2019-12-11] MEDS: CEFTRIAXONE 1 GM in DEXTROSE 5%-WATER - 50 ML IVPB SCH (10:06)
[2019-12-11 11:51] LABS: ANISOCYTOSIS 0; MACROCYTOSIS 0; PLATELET ESTIMATE NORMAL
[2019-12-11] MEDS ORDERED: MAGNESIUM SULF 50% (8.12 MEQ/2 ML-1 GM VIAL) IVPB ONE (12:22)
[2019-12-11] MEDS ORDERED: POTASSIUM CHLORIDE TABS 20 MEQ TABLET.ER (FP) PO ONE (12:22)
--- NOTE | 2019-12-11 13:49 | PN ---
Physical Exam: SUBJECTIVE: Patient seen and examined OBJECTIVE: Vital Signs Temperature 98.8 F 12/11/19 10:45 Pulse Rate 82 12/11/19 10:45 Respiratory Rate 18 12/11/19 10:45 Blood Pressure 126/88 12/11/19 10:45 O2 Sat by Pulse Oximetry (%) 97 12/11/19 09:00 GENERAL: Awake, alert, and fully oriented, in no acute distress. HEAD: Normal with no signs of trauma. EYES: PERRLA, EOMI, sclera anicteric, conjunctiva clear. EARS, NOSE, THROAT: Moist mucous membranes. NECK: Normal range of motion, supple LUNGS: Breath sounds equal, clear to auscultation bilaterally. HEART: Tachycardic, normal S1 and S2 without murmur, rub or gallop. ABDOMEN: Soft, nontender, not distended, normoactive bowel sounds. MUSCULOSKELETAL: Normal range of motion at all joints. LOWER EXTREMITIES: 2+ pulses, warm, well-perfused. SKIN: Warm, dry, normal turgor Laboratory Results - last 24 hr 12/09/19 12/10/19 12/10/19 14:30 08:45 08:45 WBC RBC Hgb Hct MCV MCH MCHC RDW Plt Count MPV Absolute Neuts (auto) Neutrophils % Neutrophils % (Manual) Band Neutrophils % Lymphocytes % Lymphocytes % (Manual) Monocytes % Monocytes % (Manual) Eosinophils % Eosinophils % (Manual) Basophils % Basophils % (Manual) Myelocytes % (Man) Promyelocytes % (Man) Blast Cells % (Manual) Nucleated RBC % Metamyelocytes Hypochromia Platelet Estimate Polychromasia Poikilocytosis Anisocytosis Microcytosis Macrocytosis Sodium Potassium Chloride Carbon Dioxide Anion Gap BUN Creatinine Est GFR (CKD-EPI)AfAm Est GFR (CKD-EPI)NonAf Random Glucose Calcium Magnesium Total Bilirubin Direct Bilirubin AST ALT Alkaline Phosphatase Creatine Kinase Troponin I Total Protein Albumin Tumor Marker AFP 3.4 COVID-19 ([facility]) Not detected Hep A IgM Ab Confirm Negative Hep Bs Antigen Negative Hep B Core IgM Ab Negative Hep C Ab Diagnostic 0.1 Hepatitis C Ab (EIA) <0.1 12/11/19 12/11/19 07:04 07:04 WBC 8.4 RBC 4.10 Hgb 12.7 Hct 38.0 MCV 92.5 MCH 31.0 MCHC 33.5 RDW 14.5 Plt Count 237 MPV 7.4 L Absolute Neuts (auto) 4.2 Neutrophils % 49.3 Neutrophils % (Manual) 37.6 L D Band Neutrophils % 0.0 Lymphocytes % 28.3 D Lymphocytes % (Manual) 36.6 D Monocytes % 12.3 H Monocytes % (Manual) 10 Eosinophils % 9.2 H D Eosinophils % (Manual) 10.9 H D Basophils % 0.9 Basophils % (Manual) 0.0 Myelocytes % (Man) 2 Promyelocytes % (Man) 1 D Blast Cells % (Manual) 0 Nucleated RBC % 0 Metamyelocytes 0 D Hypochromia 0 Platelet Estimate Normal Polychromasia 0 Poikilocytosis 0 Anisocytosis 0 Microcytosis 0 Macrocytosis 0 Sodium 137 Potassium 3.0 L Chloride 99 Carbon Dioxide 32 Anion Gap 7 L BUN 11.7 Creatinine 0.7 Est GFR (CKD-EPI)AfAm 112.38 Est GFR (CKD-EPI)NonAf 96.97 Random Glucose 95 Calcium 7.7 L Magnesium 1.7 L Total Bilirubin 0.4 Direct Bilirubin 0.1 AST 56 H ALT 56 Alkaline Phosphatase 65 Creatine Kinase 116 Troponin I < 0.02 Total Protein 5.8 L Albumin 2.8 L Tumor Marker AFP COVID-19 ([facility]) Hep A IgM Ab Confirm Hep Bs Antigen Hep B Core IgM Ab Hep C Ab Diagnostic Hepatitis C Ab (EIA) Active Medications Generic Name Dose Route Start Last Admin Trade Name Freq PRN Reason Stop Dose Admin Amlodipine Besylate 10 mg 12/10/19 10:00 12/11/19 09:02 Norvasc - PO 10 mg DAILY HEIDE Administration Chlordiazepoxide HCl 25 mg 12/10/19 13:00 12/11/19 13:03 Librium - PO 12/11/19 21:01 25 mg Q8H HEIDE Administration Chlordiazepoxide HCl 10 mg 12/13/19 00:00 Librium - PO 12/13/19 23:59 Q12H PRN Signs/symptoms of Withdrawal Chlordiazepoxide HCl 10 mg 12/10/19 07:12 12/10/19 07:58 Librium - PO 12/12/19 23:59 10 mg Q8H PRN Administration Signs/symptoms of Withdrawal Chlordiazepoxide HCl 15 mg 12/12/19 05:00 Librium - PO 12/12/19 21:01 Q8H HEIDE Chlordiazepoxide HCl 10 mg 12/13/19 05:00 Librium - PO 12/13/19 21:01 Q8H HEIDE Chlordiazepoxide HCl 10 mg 12/14/19 05:00 Librium - PO 12/14/19 05:01 ONCE ONE Folic Acid 1 mg 12/10/19 10:00 12/11/19 09:02 Folic Acid - PO 1 mg DAILY HEIDE Administration Lactated Ringer's 1,000 mls @ 83 mls/hr 12/09/19 17:30 12/11/19 06:18 Lactated Ringers Solution IV 83 mls/hr ASDIR HEIDE Administration Ceftriaxone Sodium 1 gm/ 50 mls @ 100 mls/hr 12/10/19 22:00 12/11/19 10:06 Dextrose IVPB 100 mls/hr DAILY HEIDE Administration Levothyroxine Sodium 125 mcg 12/10/19 10:04 12/11/19 06:18 Synthroid - PO 125 mcg DAILY@0700 HEIDE Administration Multivitamins/Minerals/Vitamin C 1 tab 12/10/19 10:00 12/11/19 09:02 Tab-A-Vit - PO 1 tab DAILY [facility]IDE Administration Pantoprazole Sodium 40 mg 12/09/19 22:00 12/11/19 09:02 Protonix - PO 40 mg BID HEIDE Administration Tamsulosin HCl 0.4 mg 12/12/19 08:30 Flomax - PO DAILY@0830 [facility] Thiamine HCl 100 mg 12/10/19 10:00 12/11/19 09:02 Vitamin B1 - PO 100 mg DAILY HEIDE Administration ASSESSMENT/PLAN: Patient is a 69 year old male with past medical history of chronic EtOH use, HTN, hypothyroidism, urinary retention, presented to the ED because of 3 days of difficulty urinating, described as making little urine, accompanied by abdominal bloatedness. #Urinary retention likely 2/2 BPH -Renal/bladder US (12/08) - moderate bilateral hydronephrosis, R>L, believed to be related to a markedly distended urinary bladder and urinary retention. -Renal/bladder US (12/09) - mild bilateral hydronephrosis. Prostatic enlargement. -Urinary retention pre olson US 2.9L, drained over 5L during earlier ED visit -Rectal exam revealed enlarged prostate -Urology (Dr. Darby) consulted. -Trial of void today -Continue Tamsulosin 0.4mg -recommended cystoscopy and TURP once medically stable -Covid negative #Transaminitis likely 2/2 EtOH use -RUQ US : borderline hepatomegaly with moderately dense echotexture compatible with fatty infiltration vs hepatocellular disease -Hepatitis panel pending -AFP pending -monitor LFTs -EGD/Colonoscopy recommended. Patient refusing procedure at this time. -GI (Dr. Gaines) consulted. Recommendations appreciated. #EtOH use -CIWA 0 -will monitor signs of withdrawal -continue Librium protocol -PPI -Folic acid/Thiamine/MV daily #UTI -likely 2/2 urinary retention -continue IV Ceftriaxone -Urine cultures negative #HTN -Continue Amlodipine 10mg daily #Hypothyroidism -TSH 11 -will increase home synthroid to 125mcg daily #FEN -Not on any standing fluids -routine bmp monitoring -Sodium restricted diet #Prophylaxis -SCDs #Disposition -full code -med surg Visit type - Emergency Visit Emergency Visit: Yes ED Registration Date: 12/09/19 Care time: The patient presented to the Emergency Department on the above date and was hospitalized for further evaluation of their emergent condition. - New Patient This patient is new to me today: No - Critical Care Critical Care patient: No ATTENDING PHYSICIAN STATEMENT I saw and evaluated the patient. I reviewed the resident's note and discussed the case with the resident. I agree with the resident's findings and plan as documented. SUBJECTIVE: OBJECTIVE: ASSESSMENT AND PLAN:
[2019-12-11 21:07] LABS: HEP B CORE AB, TOT Negative (Negative); TRANSGLUTAMINASE IGA < 2 U/mL (0-3); TRANSGLUTAMINASE IGG 2 U/mL (0-5)
[2019-12-12] MEDS: chlordiazePOXIDE 5 MG CAPSULE PO SCH ×2 (05:16→14:36)
[2019-12-12] MEDS: LEVOTHYROXINE NA 125 MCG TABLET (FP) PO SCH (06:14)
[2019-12-12 07:38] LABS: BASO % 0.7 % (0-2.0); HEMATOCRIT 40.4 % (35.4-49); HEMOGLOBIN 13.3 GM/dL (11.7-16.9); LYMPH % 22.8 % (8-40); MCH 30.7 pg (25.7-33.7); MCHC 32.8 g/dl (32.0-35.9); MEAN CELL VOLUME 93.4 fl (80-96); MEAN PLT VOLUME 7.4 fl (7.5-11.1); MONO % 11.6 % (3.8-10.2); NEUT % 55.9 % (42.8-82.8); PLATELET COUNT 268 K/MM3 (134-434); RBC 4.32 M/mm3 (4.00-5.60); RDW 14.5 % (11.9-15.9)
[2019-12-12 07:45] LABS: INR 1.02 (0.83-1.09)
[2019-12-12 08:04] LABS: BILIRUBIN,DIRECT 0.1 mg/dL (0.0-0.2); BILIRUBIN,TOTAL 0.4 mg/dL (0.2-1); BLOOD UREA NITROGEN 12.7 mg/dL (7-18); CALCIUM 7.6 mg/dL (8.5-10.1); CREATININE 0.7 mg/dL (0.55-1.3); POTASSIUM 3.5 mmol/L (3.5-5.1); TOT PROT 6.2 g/dl (6.4-8.2)
[2019-12-12] MEDS ORDERED: TAMSULOSIN HCL 0.4 MG CAP PO SCH (08:30)
[2019-12-12 08:57] LABS: ANISOCYTOSIS 0; MACROCYTOSIS 0; PLATELET ESTIMATE NORMAL
[2019-12-12] MEDS ORDERED: DEXTROSE 5%-WATER - 50 ML IVPB ONE (10:50)
[2019-12-12] MEDS ORDERED: cefTRIAXone SODIUM 1 GM VIAL ONE (10:50)
[2019-12-12] MEDS: PANTOPRAZOLE 40 MG TABLET PO SCH ×2 (11:27→22:15)
[2019-12-12] MEDS: CEFTRIAXONE 1 GM in DEXTROSE 5%-WATER - 50 ML IVPB SCH (11:27)
[2019-12-12] MEDS: THIAMINE HCL 100 MG TABLET (FP) PO SCH (11:28)
[2019-12-12] MEDS: MULTIVITAMINS (DAILY MVI) TABLET (FP) PO SCH (11:28)
[2019-12-12] MEDS: FOLIC ACID 1 MG TABLET (FP) PO SCH (11:28)
--- NOTE | 2019-12-12 12:11 | PN ---
Teaching Attending Note Name of Resident: Marychuy Willoguhby ATTENDING PHYSICIAN STATEMENT I saw and evaluated the patient. I reviewed the resident's note and discussed the case with the resident. I agree with the resident's findings and plan as documented. SUBJECTIVE: Comfortable denies any complaint scheduled for surgery OBJECTIVE: Vital Signs Temperature 98.5 F 12/12/19 06:00 Pulse Rate 77 12/12/19 06:00 Respiratory Rate 20 12/12/19 06:00 Blood Pressure 129/74 12/12/19 06:00 O2 Sat by Pulse Oximetry (%) 97 12/11/19 21:00 General: Elderly man, comfortable, not in distress HEENT mucous membranes moist, no anemia, no jaundice, PERRLA, no nystagmus Neck: No JVD, supple, no bruit, thyroid palpably normal, normal carotid pulsations./bilateral wheezing/bilateral basal rales. CVS: S1-S2 regular no murmur/gallop/rub Abdomen: West's catheter draining clear urine, Nondistended, soft, bowel sounds present. Extremities: No edema., No Calf tenderness, pulses present MARBLEIZER: AO X3 , no gross motor sensory deficit 12/12/19 06:45 12/12/19 06:45 Active Medications Amlodipine Besylate (Norvasc -) 10 mg PO DAILY [facility] Last Admin: 12/10/19 09:40 Dose: 10 mg Documented by: Chlordiazepoxide HCl (Librium -) 25 mg PO Q8H [facility] Stop: 12/11/19 21:01 Last Admin: 12/11/19 06:18 Dose: 25 mg Documented by: Chlordiazepoxide HCl (Librium -) 10 mg PO Q12H PRN PRN Reason: Signs/symptoms of Withdrawal Stop: 12/13/19 23:59 Chlordiazepoxide HCl (Librium -) 10 mg PO Q8H PRN PRN Reason: Signs/symptoms of Withdrawal Stop: 12/12/19 23:59 Last Admin: 12/10/19 07:58 Dose: 10 mg Documented by: Chlordiazepoxide HCl (Librium -) 15 mg PO Q8H [facility] Stop: 12/12/19 21:01 Chlordiazepoxide HCl (Librium -) 10 mg PO Q8H [facility] Stop: 12/13/19 21:01 Chlordiazepoxide HCl (Librium -) 10 mg PO ONCE ONE Stop: 12/14/19 05:01 Folic Acid (Folic Acid -) 1 mg PO DAILY [facility] Last Admin: 12/10/19 09:40 Dose: 1 mg Documented by: Lactated Ringer's (Lactated Ringers Solution) 1,000 mls @ 83 mls/hr IV ASDIR [facility] Last Admin: 12/11/19 06:18 Dose: 83 mls/hr Documented by: Ceftriaxone Sodium 1 gm/ (Dextrose) 50 mls @ 100 mls/hr IVPB DAILY [facility] Last Admin: 12/10/19 23:34 Dose: 100 mls/hr Documented by: Levothyroxine Sodium (Synthroid -) 125 mcg PO DAILY@0700 [facility] Last Admin: 12/11/19 06:18 Dose: 125 mcg Documented by: Multivitamins/Minerals/Vitamin C (Tab-A-Vit -) 1 tab PO DAILY [facility] Last Admin: 12/10/19 09:41 Dose: 1 tab Documented by: Pantoprazole Sodium (Protonix -) 40 mg PO BID [facility] Last Admin: 12/10/19 21:12 Dose: 40 mg Documented by: Thiamine HCl (Vitamin B1 -) 100 mg PO DAILY [facility] Last Admin: 12/10/19 09:41 Dose: 100 mg Documented by: ASSESSMENT AND PLAN:69 years old male history of EtOH abuse DTs yesterday presented with urinary retention with UTI and alcohol intoxication: Active issue: 1. Obstructive uropathy: Due to BPH, evaluated by scheduled for cystoscopy and possible TURP 3. Transaminitis: Evaluated by GI as per SGOT/SGPT most likely due to alcohol abuse follow-up serial LFTs and pending work-up for hepatitis 4. Hypothyroidism continue levothyroxine TSH elevated will optimize levothyroxine dose. 5. EKG shows ST-T changes in inferior lateral leads, 6. Hypokalemia repleted 7. Hypomagnesemia repleted SCD for DVT prophylaxis Discussed with the team
--- NOTE | 2019-12-12 14:32 | PN ---
Physical Exam: SUBJECTIVE: Patient seen and examined OBJECTIVE: Vital Signs Temperature 98.5 F 12/12/19 06:00 Pulse Rate 77 12/12/19 06:00 Respiratory Rate 20 12/12/19 06:00 Blood Pressure 129/74 12/12/19 06:00 O2 Sat by Pulse Oximetry (%) 98 12/12/19 09:00 GENERAL: Awake, alert, and fully oriented, in no acute distress. HEAD: Normal with no signs of trauma. EYES: PERRLA, EOMI, sclera anicteric, conjunctiva clear. EARS, NOSE, THROAT: Moist mucous membranes. NECK: Normal range of motion, supple LUNGS: Breath sounds equal, clear to auscultation bilaterally. HEART: Tachycardic, normal S1 and S2 without murmur, rub or gallop. ABDOMEN: Soft, nontender, not distended, normoactive bowel sounds. MUSCULOSKELETAL: Normal range of motion at all joints. LOWER EXTREMITIES: 2+ pulses, warm, well-perfused. SKIN: Warm, dry, normal turgor Laboratory Results - last 24 hr 12/10/19 12/12/19 12/12/19 08:45 06:45 06:45 WBC 9.0 RBC 4.32 Hgb 13.3 Hct 40.4 MCV 93.4 MCH 30.7 MCHC 32.8 RDW 14.5 Plt Count 268 MPV 7.4 L Absolute Neuts (auto) 5.0 Neutrophils % 55.9 Neutrophils % (Manual) 60.2 D Band Neutrophils % 0.0 Lymphocytes % 22.8 Lymphocytes % (Manual) 16.5 D Monocytes % 11.6 H Monocytes % (Manual) 5 Eosinophils % 9.0 H Eosinophils % (Manual) 14.6 H Basophils % 0.7 Basophils % (Manual) 1.9 D Myelocytes % (Man) 0 D Promyelocytes % (Man) 0 D Blast Cells % (Manual) 0 Nucleated RBC % 0 Metamyelocytes 0 Hypochromia 0 Platelet Estimate Normal Polychromasia 0 Poikilocytosis 0 Anisocytosis 0 Microcytosis 0 Macrocytosis 0 PT with INR INR Sodium 140 Potassium 3.5 Chloride 102 Carbon Dioxide 32 Anion Gap 6 L BUN 12.7 Creatinine 0.7 Est GFR (CKD-EPI)AfAm 112.38 Est GFR (CKD-EPI)NonAf 96.97 Random Glucose 91 Calcium 7.6 L Total Bilirubin 0.4 Direct Bilirubin 0.1 AST 45 H ALT 58 Alkaline Phosphatase 72 Total Protein 6.2 L Albumin 3.0 L Smooth Musc &MARKET SURVEY REPRESENTATIVE Intrp 6 Tiss Transglutamin IgG 2 Tiss Transglutamin IgA < 2 Hep A IgM Ab Confirm Negative Hepatitis A Ab Total Positive H Hep Bs Antigen Negative Hep Bs Antibody Non reactive Hep B Core Total Ab Negative Hep B Core IgM Ab Negative Hepatitis Be Antibody Negative Hepatitis Be Antigen Negative 12/12/19 06:45 WBC RBC Hgb Hct MCV MCH MCHC RDW Plt Count MPV Absolute Neuts (auto) Neutrophils % Neutrophils % (Manual) Band Neutrophils % Lymphocytes % Lymphocytes % (Manual) Monocytes % Monocytes % (Manual) Eosinophils % Eosinophils % (Manual) Basophils % Basophils % (Manual) Myelocytes % (Man) Promyelocytes % (Man) Blast Cells % (Manual) Nucleated RBC % Metamyelocytes Hypochromia Platelet Estimate Polychromasia Poikilocytosis Anisocytosis Microcytosis Macrocytosis PT with INR 12.00 INR 1.02 Sodium Potassium Chloride Carbon Dioxide Anion Gap BUN Creatinine Est GFR (CKD-EPI)AfAm Est GFR (CKD-EPI)NonAf Random Glucose Calcium Total Bilirubin Direct Bilirubin AST ALT Alkaline Phosphatase Total Protein Albumin Smooth Musc &MARKET SURVEY REPRESENTATIVE Intrp Tiss Transglutamin IgG Tiss Transglutamin IgA Hep A IgM Ab Confirm Hepatitis A Ab Total Hep Bs Antigen Hep Bs Antibody Hep B Core Total Ab Hep B Core IgM Ab Hepatitis Be Antibody Hepatitis Be Antigen Active Medications Generic Name Dose Route Start Last Admin Trade Name Freq PRN Reason Stop Dose Admin Amlodipine Besylate 10 mg 12/10/19 10:00 12/11/19 09:02 Norvasc - PO 10 mg DAILY [facility] Administration Chlordiazepoxide HCl 10 mg 12/13/19 00:00 Librium - PO 12/13/19 23:59 Q12H PRN Signs/symptoms of Withdrawal Chlordiazepoxide HCl 10 mg 12/10/19 07:12 12/10/19 07:58 Librium - PO 12/12/19 23:59 10 mg Q8H PRN Administration Signs/symptoms of Withdrawal Chlordiazepoxide HCl 15 mg 12/12/19 05:00 12/12/19 05:16 Librium - PO 12/12/19 21:01 15 mg Q8H [facility] Administration Chlordiazepoxide HCl 10 mg 12/13/19 05:00 Librium - PO 12/13/19 21:01 Q8H [facility] Chlordiazepoxide HCl 10 mg 12/14/19 05:00 Librium - PO 12/14/19 05:01 ONCE ONE Folic Acid 1 mg 12/10/19 10:00 12/12/19 11:28 Folic Acid - PO Not Given DAILY [facility] Ceftriaxone Sodium 1 gm/ 50 mls @ 100 mls/hr 12/10/19 22:00 12/12/19 11:27 Dextrose IVPB 100 mls/hr DAILY [facility] Administration Levothyroxine Sodium 125 mcg 12/10/19 10:04 12/12/19 06:14 Synthroid - PO 125 mcg DAILY@0700 [facility] Administration Multivitamins/Minerals/Vitamin C 1 tab 12/10/19 10:00 12/12/19 11:28 Tab-A-Vit - PO Not Given DAILY [facility] Pantoprazole Sodium 40 mg 12/09/19 22:00 12/12/19 11:27 Protonix - PO Not Given BID [facility] Tamsulosin HCl 0.4 mg 12/12/19 08:30 12/12/19 09:54 Flomax - PO Not Given DAILY@0830 [facility] Thiamine HCl 100 mg 12/10/19 10:00 12/12/19 11:28 Vitamin B1 - PO Not Given DAILY [facility] ASSESSMENT/PLAN: Patient is a 69 year old male with past medical history of chronic EtOH use, HTN, hypothyroidism, urinary retention, presented to the ED because of 3 days of difficulty urinating, described as making little urine, accompanied by abdominal bloatedness. #Urinary retention likely 2/2 BPH -Renal/bladder US (12/08) - moderate bilateral hydronephrosis, R>L, believed to be related to a markedly distended urinary bladder and urinary retention. -Renal/bladder US (12/09) - mild bilateral hydronephrosis. Prostatic enlargement. -Urinary retention pre olson US 2.9L, drained over 5L during earlier ED visit -Rectal exam revealed enlarged prostate -Urology (Dr. Darby) consulted. -Continue Tamsulosin 0.4mg -scheduled for cystoscopy and TURP today -Covid negative #Transaminitis likely 2/2 EtOH use -RUQ US : borderline hepatomegaly with moderately dense echotexture compatible with fatty infiltration vs hepatocellular disease -Hepatitis panel pending -AFP pending -LFTs improving -EGD/Colonoscopy recommended. Patient refusing procedure at this time. -GI (Dr. Gaines) consulted. Recommendations appreciated. #EtOH use -CIWA 0 -will monitor signs of withdrawal -continue Librium protocol -PPI -Folic acid/Thiamine/MV daily #UTI -likely 2/2 urinary retention -continue IV Ceftriaxone -Urine cultures negative #HTN -Continue Amlodipine 10mg daily #Hypothyroidism -TSH 11 -will increase home synthroid to 125mcg daily #FEN -Not on any standing fluids -routine bmp monitoring -Sodium restricted diet #Prophylaxis -SCDs #Disposition -full code -med surg Visit type - Emergency Visit Emergency Visit: Yes ED Registration Date: 12/09/19 Care time: The patient presented to the Emergency Department on the above date and was hospitalized for further evaluation of their emergent condition. - New Patient This patient is new to me today: No - Critical Care Critical Care patient: No ATTENDING PHYSICIAN STATEMENT I saw and evaluated the patient. I reviewed the resident's note and discussed the case with the resident. I agree with the resident's findings and plan as documented. SUBJECTIVE: OBJECTIVE: ASSESSMENT AND PLAN:
[2019-12-12] MEDS ORDERED: MIDAZOLAM HCL 2 MG/2 ML SINGLE DOSE VIAL ONE ×2 (14:56)
[2019-12-12] MEDS ORDERED: DEXAMETHASONE SOD PHOSPHATE 4 MG/1 ML VIAL ONE (15:17)
[2019-12-12] MEDS ORDERED: ceFAZolin SODIUM 1 GM VIAL ONE (15:18)
[2019-12-12] MEDS ORDERED: SODIUM CHLORIDE 0.9% P/F 10 ML VIAL IJ ONE (15:18)
[2019-12-12] MEDS ORDERED: PROPOFOL 20 ML ONE (15:37)
[2019-12-12] MEDS ORDERED: ceFAZolin SODIUM 1 GM VIAL IVPB ONE (15:44)
--- NOTE | 2019-12-12 16:47 | OP ---
Operative Note - Note: Operative Date: 12/12/19 Pre-Operative Diagnosis: bph with aur Operation: turp/tuvp Findings: trilobar prostate and bladder trabeculation Post-Operative Diagnosis: Same as Pre-op Surgeon: Robert Darby Anesthesia: General Specimens Removed: prostate chips Estimated Blood Loss (mls): 75 Drains & Tubes with Location: 24f 3way 30cc olson Drains, Volume Out (mls): 0 Blood Volume Replaced (mls): 0 Fluid Volume Replaced (mls): 0 Operative Report Dictated: Yes
[2019-12-12] MEDS ORDERED: chlordiazePOXIDE HCL 10 MG CAPSULE PO PRN (17:15)
[2019-12-12] MEDS ORDERED: ONDANSETRON 4 MG/2 ML VIAL IVPUSH PRN (17:23)
[2019-12-12] MEDS: amLODIPine BESYLATE 10 MG TABLET (FP) PO SCH (18:58)
[2019-12-12] MEDS: DEXTROSE 5%-0.45% SALINE 1,000 ML IV SCH (19:00)
[2019-12-12] MEDS ORDERED: chlordiazePOXIDE 5 MG CAPSULE PO SCH (21:00)
[2019-12-12] MEDS: LACTATED RINGERS SOLUTION 1,000 ML IV SCH (23:15)
[2019-12-13] MEDS ORDERED: chlordiazePOXIDE HCL 10 MG CAPSULE PO PRN ×2
--- NOTE | 2019-12-13 00:46 | OP ---
DATE OF OPERATION: 12/12/2019 PREOPERATIVE DIAGNOSIS: Acute urinary retention, history of prostatism and benign prostatic hypertrophy. POSTOPERATIVE DIAGNOSIS: Benign prostatic hypertrophy with trabeculated bladder. OPERATIVE PROCEDURE: Cystourethroscopy, transurethral resection and transurethral vaporization of prostate. ANESTHESIA: General. DESCRIPTION OF PROCEDURE: Under above stated anesthesia, patient was prepped and draped in the usual sterile manner. He was placed in the dorsal lithotomy position. Cystoscopy revealed trilobar hypertrophy of the prostate, there was lateral lobe kissing. The bladder revealed a grade 3 trabeculation with multiple diverticula and saccules. A resectoscope bipolar was inserted. Resection of the prostate was commenced in the usual fashion. A VaporTrode was also introduced, and excess prostate tissue was vaporized. Prostatic chips were evacuated with an Labtiva evacuator. No active bleeding was noted, therefore the scope was removed. A 24 Hungarian 3-way, 30 mL West was placed. This was connected to continuous bladder irrigation. The patient tolerated the procedure well. He returned to the recovery room in good condition. Tiffany [id number]
[2019-12-13 04:07] LABS: ALPHA 2 MACROGLOBULINS,QN 162 mg/dL (110-276); ALT(SGPT)P5P 59 IU/L (0-55); CHOLESTEROL TOTAL 138 mg/dL (100-199); GLUCOSE SERUM 98 mg/dL (65-99); HEIGHT. 65 in (.); WEIGHT. 182 LBS (.)
[2019-12-13] MEDS ORDERED: chlordiazePOXIDE HCL 10 MG CAPSULE PO SCH (05:00)
[2019-12-13] MEDS: chlordiazePOXIDE HCL 10 MG CAPSULE PO SCH ×3 (05:10→21:06)
[2019-12-13] MEDS: LEVOTHYROXINE NA 125 MCG TABLET (FP) PO SCH (06:02)
[2019-12-13 07:31] LABS: BASO % 0.2 % (0-2.0); EOS % 0.5 % (0-4.5); HEMATOCRIT 36.4 % (35.4-49); MCHC 33.1 g/dl (32.0-35.9); MEAN CELL VOLUME 93.8 fl (80-96); MEAN PLT VOLUME 7.2 fl (7.5-11.1); MONO % 11.7 % (3.8-10.2); NEUT % 73.6 % (42.8-82.8); PLATELET COUNT 278 K/MM3 (134-434); RBC 3.88 M/mm3 (4.00-5.60); RDW 14.8 % (11.9-15.9); WHITE BLOOD COUNT 12.1 K/mm3 (4.0-10.0)
[2019-12-13 07:43] LABS: ALBUMIN 2.8 g/dl (3.4-5.0); BILIRUBIN,TOTAL 0.4 mg/dL (0.2-1); BLOOD UREA NITROGEN 9.5 mg/dL (7-18); CALCIUM 7.4 mg/dL (8.5-10.1); CREATININE 0.7 mg/dL (0.55-1.3); MAGNESIUM 1.7 mg/dL (1.8-2.4); POTASSIUM 3.8 mmol/L (3.5-5.1); TOT PROT 5.8 g/dl (6.4-8.2)
--- NOTE | 2019-12-13 08:47 | PN ---
Progress Note, Physician Chief Complaint: Patient feels comfortable yesterday underwent TURP History of Present Illness: 69 years old male history of EtOH abuse DTs yesterday presented with urinary retention with UTI and alcohol intoxicatin with urinary retention by , patient has BPH yesterday underwent TURP. - Current Medication List Current Medications: Active Medications Amlodipine Besylate (Norvasc -) 10 mg PO DAILY [facility] Chlordiazepoxide HCl (Librium -) 10 mg PO ONCE ONE Stop: 12/14/19 05:01 Chlordiazepoxide HCl (Librium -) 10 mg PO Q12H PRN PRN Reason: Signs/symptoms of Withdrawal Stop: 12/13/19 23:59 Chlordiazepoxide HCl (Librium -) 10 mg PO Q8H [facility] Stop: 12/13/19 21:01 Last Admin: 12/13/19 05:10 Dose: 10 mg Documented by: Fentanyl (Sublimaze Injection -) 50 mcg IVPUSH [id number] PRN PRN Reason: PAIN-PACU ORDER X 4 DOSES ONLY Last Admin: 12/12/19 17:35 Dose: 50 mcg Documented by: Dextrose/Sodium Chloride (D5-1/2ns -) 1,000 mls @ 125 mls/hr IV ASDIR [facility] Last Admin: 12/12/19 19:00 Dose: 125 mls/hr Documented by: Lactated Ringer's (Lactated Ringers Solution) 1,000 mls @ 125 mls/hr IV ASDIR [facility] Last Admin: 12/12/19 23:15 Dose: 125 mls/hr Documented by: Levothyroxine Sodium (Synthroid -) 125 mcg PO DAILY@0700 [facility] Last Admin: 12/13/19 06:02 Dose: 125 mcg Documented by: Multivitamins/Minerals/Vitamin C (Tab-A-Vit -) 1 tab PO DAILY [facility] Ondansetron HCl (Zofran Injection) 4 mg IVPUSH Q6H PRN PRN Reason: NAUSEA AND/OR VOMITING Pantoprazole Sodium (Protonix -) 40 mg PO BID [facility] Last Admin: 12/12/19 22:15 Dose: 40 mg Documented by: Tamsulosin HCl (Flomax -) 0.4 mg PO DAILY@0830 [facility] - Objective Vital Signs: Vital Signs Temperature 97.6 F 12/13/19 06:07 Pulse Rate 80 12/13/19 06:07 Respiratory Rate 12/13/19 06:07 Blood Pressure 145/80 12/13/19 06:07 O2 Sat by Pulse Oximetry (%) 100 12/12/19 21:00 General: Elderly man, comfortable, not in distress HEENT mucous membranes moist, no anemia, no jaundice, PERRLA, no nystagmus Neck: No JVD, supple, no bruit, thyroid palpably normal, normal carotid pulsations./bilateral wheezing/bilateral basal rales. CVS: S1-S2 regular no murmur/gallop/rub Abdomen: West's catheter draining clear urine, Nondistended, soft, bowel sounds present. 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 Obstructive uropathy: Due to BPH, evaluated by yesterday underwent cystoscopy and TURP, remained afebrile H&H are stable, now on CBI with blood- tinged urine wants to go home will follow with for discharge planning. 3. Transaminitis: Evaluated by GI as per SGOT/SGPT most likely due to alcohol abuse follow-up serial LFTs and pending work-up for hepatitis 4. Hypothyroidism continue levothyroxine TSH elevated will optimized levothyroxine dose. 5. EKG shows ST-T changes in inferior lateral leads, 6. Hypokalemia repleted 7. Hypomagnesemia repleted SCD for DVT prophylaxis Discussed with the team
[2019-12-13] MEDS: MULTIVITAMINS (DAILY MVI) TABLET (FP) PO SCH (09:25)
[2019-12-13] MEDS: PANTOPRAZOLE 40 MG TABLET PO SCH ×2 (09:25→21:05)
[2019-12-13] MEDS: amLODIPine BESYLATE 10 MG TABLET (FP) PO SCH (09:25)
[2019-12-13] MEDS: TAMSULOSIN HCL 0.4 MG CAP PO SCH (09:25)
[2019-12-13 11:10] LABS: PLATELET ESTIMATE NORMAL
--- NOTE | 2019-12-13 19:15 | PN ---
Progress Note (short form) - Note Progress Note: Anesthesiology Post-op POD#1 s/p TURP under GA. Pt. doing well. Pain controlled. VSS. No apparent anesthesia-related issues. 69 y.o. man with stable post-operative course. Continue management as per primary team.
[2019-12-13] MEDS: DEXTROSE 5%-0.45% SALINE 1,000 ML IV SCH (20:35)
[2019-12-13] MEDS: LACTATED RINGERS SOLUTION 1,000 ML IV SCH (20:36)
[2019-12-14] MEDS ORDERED: chlordiazePOXIDE HCL 10 MG CAPSULE PO ONE ×2 (05:00)
[2019-12-14] MEDS: LEVOTHYROXINE NA 125 MCG TABLET (FP) PO SCH (06:05)
[2019-12-14 07:49] LABS: BASO % 0.8 % (0-2.0); EOS % 5.5 % (0-4.5); HEMATOCRIT 37.3 % (35.4-49); HEMOGLOBIN 12.4 GM/dL (11.7-16.9); LYMPH % 28.9 % (8-40); MCH 31.4 pg (25.7-33.7); MCHC 33.3 g/dl (32.0-35.9); MEAN CELL VOLUME 94.2 fl (80-96); MEAN PLT VOLUME 7.3 fl (7.5-11.1); MONO % 10.9 % (3.8-10.2); NEUT % 53.9 % (42.8-82.8); PLATELET COUNT 313 K/MM3 (134-434); RBC 3.96 M/mm3 (4.00-5.60); RDW 14.9 % (11.9-15.9); WHITE BLOOD COUNT 9.2 K/mm3 (4.0-10.0)
[2019-12-14 07:54] LABS: BLOOD UREA NITROGEN 7.4 mg/dL (7-18); CALCIUM 8.2 mg/dL (8.5-10.1); CREATININE 0.8 mg/dL (0.55-1.3); POTASSIUM 4.2 mmol/L (3.5-5.1)
--- NOTE | 2019-12-14 08:45 | PN ---
Progress Note, Physician Chief Complaint: Patient feels comfortable s/p TURP day 2 History of Present Illness: 69 years old male history of EtOH abuse DTs yesterday presented with urinary retention with UTI and alcohol intoxicatin with urinary retention by , patient has BPH , patient underwent TURP day 2. - Current Medication List Current Medications: Active Medications Amlodipine Besylate (Norvasc -) 10 mg PO DAILY [facility] Last Admin: 12/13/19 09:25 Dose: 10 mg Documented by: Fentanyl (Sublimaze Injection -) 50 mcg IVPUSH [id number] PRN PRN Reason: PAIN-PACU ORDER X 4 DOSES ONLY Last Admin: 12/12/19 17:35 Dose: 50 mcg Documented by: Dextrose/Sodium Chloride (D5-1/2ns -) 1,000 mls @ 125 mls/hr IV ASDIR [facility] Last Admin: 12/13/19 20:35 Dose: Not Given Documented by: Lactated Ringer's (Lactated Ringers Solution) 1,000 mls @ 125 mls/hr IV ASDIR [facility] Last Admin: 12/13/19 20:36 Dose: 125 mls/hr Documented by: Levothyroxine Sodium (Synthroid -) 125 mcg PO DAILY@0700 [facility] Last Admin: 12/14/19 06:05 Dose: 125 mcg Documented by: Multivitamins/Minerals/Vitamin C (Tab-A-Vit -) 1 tab PO DAILY [facility] Last Admin: 12/13/19 09:25 Dose: 1 tab Documented by: Ondansetron HCl (Zofran Injection) 4 mg IVPUSH Q6H PRN PRN Reason: NAUSEA AND/OR VOMITING Pantoprazole Sodium (Protonix -) 40 mg PO BID [facility] Last Admin: 12/13/19 21:05 Dose: 40 mg Documented by: Tamsulosin HCl (Flomax -) 0.4 mg PO DAILY@0830 [facility] Last Admin: 12/13/19 09:25 Dose: 0.4 mg Documented by: - Objective Vital Signs: Vital Signs Temperature 98.5 F 12/14/19 05:14 Pulse Rate 84 12/14/19 05:14 Respiratory Rate 20 12/14/19 05:14 Blood Pressure 129/76 12/14/19 05:14 O2 Sat by Pulse Oximetry (%) 97 12/13/19 20:30 General: Elderly man, comfortable, not in distress HEENT mucous membranes moist, no anemia, no jaundice, PERRLA, no nystagmus Neck: No JVD, supple, no bruit, thyroid palpably normal, normal carotid pulsations./bilateral wheezing/bilateral basal rales. CVS: S1-S2 regular no murmur/gallop/rub Abdomen: West's catheter draining clear urine, Nondistended, soft, bowel sounds present. Extremities: No edema., No Calf tenderness, pulses present PROGRAM PLANNER: AO X3 , no gross motor sensory deficit Labs: CBC, BMP 12/14/19 06:40 12/14/19 06:40 INR, PTT INR 1.02 (0.83-1.09) 12/12/19 06:45 Assessment/Plan ASSESSMENT AND PLAN:on: 63-year-old man with history of hypertension hypothyroidism presented with alcohol intoxication with hypokalemia and hypomag nesemia with urinary retention due to BPH subsequently developed post obstructive diuresis, yesterday underwent TURP by yesterday underwent Active issue: 1. Obstructive uropathy: Due to BPH, evaluated by , patient underwent cystoscopy and TURP day 2, remained afebrile H&H are stable, now on CBI with blood-tinged urine wants to go home will follow with for discharge planning. 3. Transaminitis: Evaluated by GI as per SGOT/SGPT most likely due to alcohol abuse follow-up serial LFTs and pending work-up for hepatitis 4. Hypothyroidism continue levothyroxine TSH elevated will optimized levothyroxine dose. 5. EKG shows ST-T changes in inferior lateral leads, 6. Hypokalemia repleted 7. Hypomagnesemia repleted SCD for DVT prophylaxis Discussed with the team
[2019-12-14] MEDS: PANTOPRAZOLE 40 MG TABLET PO SCH ×2 (09:08→22:02)
[2019-12-14] MEDS: MULTIVITAMINS (DAILY MVI) TABLET (FP) PO SCH (09:08)
[2019-12-14] MEDS: amLODIPine BESYLATE 10 MG TABLET (FP) PO SCH (09:08)
[2019-12-14] MEDS: TAMSULOSIN HCL 0.4 MG CAP PO SCH (09:08)
[2019-12-14 09:16] LABS: ANISOCYTOSIS 0; MACROCYTOSIS 0; PLATELET ESTIMATE NORMAL
--- NOTE | 2019-12-14 15:06 | PN ---
DATE OF VISIT: 12/14/2019 Status post TURP/TURBT, postoperative day one. PHYSICAL EXAMINATION: Vital Signs: Temperature is 98, blood pressure 129/78, pulse oximetry 97, respirations 20. Abdomen: Soft. West with CBI is blood tinged. Earlier this morning some clots were irrigated. GENERAL: Patient is tolerating diet and ambulating. LABORATORY DATA: Reveals a white count of 12,100, hemoglobin 12, hematocrit 36.4. BUN 9.5, creatinine 0.7. ASSESSMENT AND PLAN: We will continue with CBI. We will encourage p.o. fluids and early ambulation. Tiffany [id number]
[2019-12-14] MEDS: LACTATED RINGERS SOLUTION 1,000 ML IV SCH (22:00)
[2019-12-14] MEDS: DEXTROSE 5%-0.45% SALINE 1,000 ML IV SCH (22:00)
[2019-12-15] MEDS: LEVOTHYROXINE NA 125 MCG TABLET (FP) PO SCH (06:32)
[2019-12-15 07:33] LABS: BASO % 0.9 % (0-2.0); EOS % 5.2 % (0-4.5); HEMATOCRIT 38.7 % (35.4-49); LYMPH % 29.8 % (8-40); MCH 31.5 pg (25.7-33.7); MCHC 33.6 g/dl (32.0-35.9); MEAN CELL VOLUME 93.9 fl (80-96); MEAN PLT VOLUME 7.3 fl (7.5-11.1); MONO % 11.1 % (3.8-10.2); PLATELET COUNT 371 K/MM3 (134-434); RBC 4.12 M/mm3 (4.00-5.60); WHITE BLOOD COUNT 10.4 K/mm3 (4.0-10.0)
[2019-12-15 07:56] LABS: BLOOD UREA NITROGEN 11.3 mg/dL (7-18); CALCIUM 8.3 mg/dL (8.5-10.1); CREATININE 0.8 mg/dL (0.55-1.3)
--- NOTE | 2019-12-15 08:02 | PN ---
Teaching Attending Note Name of Resident: Marychuy Willoughby ATTENDING PHYSICIAN STATEMENT I saw and evaluated the patient. I reviewed the resident's note and discussed the case with the resident. I agree with the resident's findings and plan as documented. SUBJECTIVE: Comfortable remained afebrile still on CBI, mildly blood-tinged urine OBJECTIVE: Vital Signs Temperature 97.5 F L 12/15/19 06:28 Pulse Rate 75 12/15/19 06:28 Respiratory Rate 20 12/15/19 06:28 Blood Pressure 129/76 12/15/19 06:28 O2 Sat by Pulse Oximetry (%) 97 12/14/19 21:00 General: Elderly man, comfortable, not in distress HEENT mucous membranes moist, no anemia, no jaundice, PERRLA, no nystagmus Neck: No JVD, supple, no bruit, thyroid palpably normal, normal carotid pulsations./bilateral wheezing/bilateral basal rales. CVS: S1-S2 regular no murmur/gallop/rub Abdomen: CBI draining blood-tinged urine, clear urine, abdomen nondistended, soft, bowel sounds present. Extremities: No edema., No Calf tenderness, pulses present FILING CLERK: AO X3 , no gross motor sensory deficit CBC, [facility] 12/15/19 06:45 12/15/19 06:45 CBC, BMP 12/15/19 06:45 12/15/19 06:45 Urine culture: Negative Active Medications Amlodipine Besylate (Norvasc -) 10 mg PO DAILY [facility] BEDS AT [facility] Last Admin: 12/15/19 09:30 Dose: 10 mg Documented by: Fentanyl (Sublimaze Injection -) 50 mcg IVPUSH [id number] PRN PRN Reason: PAIN-PACU ORDER X 4 DOSES ONLY Last Admin: 12/12/19 17:35 Dose: 50 mcg Documented by: Dextrose/Sodium Chloride (D5-1/2ns -) 1,000 mls @ 125 mls/hr IV ASDIR [facility]S [facility]CLUDE 234 BEDS AT [facility] Last Admin: 12/14/19 22:00 Dose: Not Given Documented by: Lactated Ringer's (Lactated Ringers Solution) 1,000 mls @ 125 mls/hr IV [facility]IR [facility]S INCLUDE 234 BEDS AT [facility] Last Admin: 12/14/19 22:00 Dose: Not Given Documented by: Levothyroxine Sodium (Synthroid -) 125 mcg PO DAILY@0700 [facility] 234 BEDS AT [facility] Last Admin: 12/15/19 06:32 Dose: 125 mcg Documented by: Multivitamins/Minerals/Vitamin C (Tab-A-Vit -) 1 tab PO DAILY [facility] 234 BEDS AT [facility] Last Admin: 12/15/19 09:30 Dose: 1 tab Documented by: Ondansetron HCl (Zofran Injection) 4 mg IVPUSH Q6H PRN PRN Reason: NAUSEA AND/OR VOMITING Pantoprazole Sodium (Protonix -) 40 mg PO BID [facility] 234 BEDS [facility] Last Admin: 12/15/19 09:30 Dose: 40 mg Documented by: Tamsulosin HCl (Flomax -) 0.4 mg PO DAILY@0830 [facility] 234 BEDS AT [facility] Last Admin: 12/15/19 09:29 Dose: 0.4 mg Documented by: ASSESSMENT AND PLAN:on: 63-year-old man with history of hypertension hypothyroidism presented with alcohol intoxication with hypokalemia and hypomagnesemia with urinary retention due to BPH subsequently developed post obstructive diuresis, yesterday underwent TURP by yesterday underwent Active issue: 1. Obstructive uropathy: Due to BPH, evaluated by , patient underwent cystoscopy and TURP , remained afebrile H&H are stable, now on CBI with blood- tinged urine wants to go home will follow with for discharge planning. 3. Transaminitis: Evaluated by GI as per SGOT/SGPT most likely due to alcohol abuse follow-up serial LFTs and pending work-up for hepatitis 4. Hypothyroidism continue levothyroxine TSH elevated will optimized levothyroxine dose. 5. Hypokalemia repleted 6. Hypomagnesemia repleted SCD for DVT prophylaxis Discussed with the team Disposition: Can be discharged home on current medication as per recommendations.
[2019-12-15] MEDS: TAMSULOSIN HCL 0.4 MG CAP PO SCH (09:29)
[2019-12-15] MEDS: MULTIVITAMINS (DAILY MVI) TABLET (FP) PO SCH (09:30)
[2019-12-15] MEDS: amLODIPine BESYLATE 10 MG TABLET (FP) PO SCH (09:30)
[2019-12-15] MEDS: PANTOPRAZOLE 40 MG TABLET PO SCH ×2 (09:30→22:15)
[2019-12-15 10:46] LABS: ANISOCYTOSIS 0; HELMET CELLS 0; HOWELL-JOLLY BODIES 0; MACROCYTOSIS 0; OVALOCYTE 0; PLATELET ESTIMATE NORMAL; ROULEAU 0; SICKELED CELLS 0; TARGET CELLS 0; TEAR DROP CELLS 0; TOXIC GRANULATION 0
--- NOTE | 2019-12-15 13:59 | PN ---
Physical Exam: SUBJECTIVE: Patient seen and examined at bedside. No acute events overnight. Some hematuria noted on the olson. but otherwise patient feels well and has no complaints and wants to go home. OBJECTIVE: Vital Signs Temperature 97.5 F L 12/15/19 06:28 Pulse Rate 75 12/15/19 06:28 Respiratory Rate 20 12/15/19 06:28 Blood Pressure 129/76 12/15/19 06:28 O2 Sat by Pulse Oximetry (%) 97 12/14/19 21:00 GENERAL: Awake, alert, and fully oriented, in no acute distress. HEAD: Normal with no signs of trauma. EYES: PERRLA, EOMI, sclera anicteric, conjunctiva clear. EARS, NOSE, THROAT: Moist mucous membranes. NECK: Normal range of motion, supple LUNGS: Breath sounds equal, clear to auscultation bilaterally. HEART: Tachycardic, normal S1 and S2 without murmur, rub or gallop. ABDOMEN: Soft, nontender, not distended, normoactive bowel sounds. MUSCULOSKELETAL: Normal range of motion at all joints. LOWER EXTREMITIES: 2+ pulses, warm, well-perfused. SKIN: Warm, dry, normal turgor Laboratory Results - last 24 hr 12/15/19 12/15/19 06:45 06:45 WBC 10.4 H RBC 4.12 Hgb 13.0 Hct 38.7 MCV 93.9 MCH 31.5 MCHC 33.6 RDW 15.0 Plt Count 371 MPV 7.3 L Absolute Neuts (auto) 5.5 Neutrophils % 53.0 Neutrophils % (Manual) 36.6 L D Band Neutrophils % 0.0 Lymphocytes % 29.8 Lymphocytes % (Manual) 41.6 H D Monocytes % 11.1 H Monocytes % (Manual) 12 H D Eosinophils % 5.2 H Eosinophils % (Manual) 2.9 Basophils % 0.9 Basophils % (Manual) 3.0 H D Myelocytes % (Man) 2 D Promyelocytes % (Man) 1 D Blast Cells % (Manual) 0 Nucleated RBC % 0 Metamyelocytes 1 D Hypochromia 0 Toxic Granulation 0 Dohle Bodies 0 Platelet Estimate Normal Polychromasia 0 Poikilocytosis 0 Basophilic Stippling 0 Anisocytosis 0 Microcytosis 0 Macrocytosis 0 Spherocytes 0 Sickle Cells 0 Target Cells 0 Tear Drop Cells 0 Ovalocytes 0 Stomatocytes 0 Helmet Cells 0 Bro-[place] Bodies 0 [place] Rings 0 [place] Cells 0 Acanthocytes (Spur) 0 Rouleaux 0 Fragmented RBCs 0 Schistocytes 0 Sodium 137 Potassium 4.0 Chloride 101 Carbon Dioxide 30 Anion Gap 6 L BUN 11.3 Creatinine 0.8 Est GFR (CKD-EPI)AfAm 106.38 Est GFR (CKD-EPI)NonAf 91.79 Random Glucose 99 Calcium 8.3 L Active Medications Generic Name Dose Route Start Last Admin Trade Name Freyuniel PRN Reason Stop Dose Admin Amlodipine Besylate 10 mg 12/13/19 10:00 12/15/19 09:30 Norvasc - PO 10 mg DAILY HEIDE Administration Fentanyl 50 mcg 12/12/19 17:23 12/12/19 17:35 Sublimaze Injection - IVPUSH 50 mcg [id number] PRN Administration PAIN-PACU ORDER X 4 DOSES ONLY Levothyroxine Sodium 125 mcg 12/13/19 07:00 12/15/19 06:32 Synthroid - PO 125 mcg DAILY@0700 HEIDE Administration Multivitamins/Minerals/Vitamin C 1 tab 12/13/19 10:00 12/15/19 09:30 Tab-A-Vit - PO 1 tab DAILY HEIDE Administration Ondansetron HCl 4 mg 12/12/19 17:23 Zofran Injection IVPUSH Q6H PRN NAUSEA AND/OR VOMITING Pantoprazole Sodium 40 mg 12/12/19 22:00 12/15/19 09:30 Protonix - PO 40 mg BID HEIDE Administration Tamsulosin HCl 0.4 mg 12/13/19 08:30 12/15/19 09:29 Flomax - PO 0.4 mg DAILY@0830 HEIDE Administration ASSESSMENT/PLAN: Patient is a 69 year old male with past medical history of chronic EtOH use, HTN, hypothyroidism, urinary retention, presented to the ED because of 3 days of difficulty urinating, described as making little urine, accompanied by abdominal bloatedness. #Urinary retention likely 2/2 BPH -Renal/bladder US (12/08) - moderate bilateral hydronephrosis, R>L, believed to be related to a markedly distended urinary bladder and urinary retention. -Renal/bladder US (12/09) - mild bilateral hydronephrosis. Prostatic enlargement. -Urology (Dr. Darby) consulted. -Continue Tamsulosin 0.4mg -POD 3: cystourethroscopy, transurethral resection and transurethral vaporization of prostate. #Transaminitis likely 2/2 EtOH use -RUQ US : borderline hepatomegaly with moderately dense echotexture compatible with fatty infiltration vs hepatocellular disease -Hepatitis panel pending -AFP pending -LFTs improving -EGD/Colonoscopy recommended. Patient refusing procedure at this time. -GI (Dr. Gaines) consulted. Recommendations appreciated. #EtOH use -completed librium protocol #UTI -likely 2/2 urinary retention -continue IV Ceftriaxone -Urine cultures negative #HTN -Continue Amlodipine 10mg daily #Hypothyroidism -TSH 11 -will increase home synthroid to 125mcg daily -will repeat TSH in am #FEN -Not on any standing fluids -routine bmp monitoring -Sodium restricted diet #Prophylaxis -SCDs #Disposition -full code -med surg Visit type - Emergency Visit Emergency Visit: Yes ED Registration Date: 12/09/19 Care time: The patient presented to the Emergency Department on the above date and was hospitalized for further evaluation of their emergent condition. - New Patient This patient is new to me today: No - Critical Care Critical Care patient: No ATTENDING PHYSICIAN STATEMENT I saw and evaluated the patient. I reviewed the resident's note and discussed the case with the resident. I agree with the resident's findings and plan as documented. SUBJECTIVE: OBJECTIVE: ASSESSMENT AND PLAN:
--- NOTE | 2019-12-15 23:57 | PN ---
DATE OF VISIT: DATE OF DICTATION: 12/15/2019 Patient is a 69-year-old male. He is postoperative day number 4 status post a TURP, had a bloody postoperative course. A CBI today is open. The urine is pink tinged. There are no clots. The abdomen is soft. He is afebrile. BUN and creatinine are 9.5 over 0.7. The plan is discontinue CBI. Will connect West to leg bag and patient is cleared to go home in the morning. Will follow in office on at 10 a.m. Tiffany [id number]
[2019-12-16] MEDS: LEVOTHYROXINE NA 125 MCG TABLET (FP) PO SCH (06:04)
[2019-12-16 07:08] LABS: BASO % 0.8 % (0-2.0); EOS % 4.1 % (0-4.5); HEMATOCRIT 41.2 % (35.4-49); HEMOGLOBIN 13.8 GM/dL (11.7-16.9); LYMPH % 29.4 % (8-40); MCH 31.8 pg (25.7-33.7); MCHC 33.5 g/dl (32.0-35.9); MEAN PLT VOLUME 7.5 fl (7.5-11.1); MONO % 8.9 % (3.8-10.2); NEUT % 56.8 % (42.8-82.8); PLATELET COUNT 461 K/MM3 (134-434); RBC 4.33 M/mm3 (4.00-5.60); RDW 15.1 % (11.9-15.9); WHITE BLOOD COUNT 10.5 K/mm3 (4.0-10.0)
[2019-12-16 07:33] LABS: BLOOD UREA NITROGEN 9.8 mg/dL (7-18); CALCIUM 8.4 mg/dL (8.5-10.1); CREATININE 0.8 mg/dL (0.55-1.3); MAGNESIUM 1.9 mg/dL (1.8-2.4); POTASSIUM 3.8 mmol/L (3.5-5.1)
[2019-12-16] MEDS: TAMSULOSIN HCL 0.4 MG CAP PO SCH (09:50)
[2019-12-16] MEDS: PANTOPRAZOLE 40 MG TABLET PO SCH (09:50)
[2019-12-16] MEDS: MULTIVITAMINS (DAILY MVI) TABLET (FP) PO SCH (09:50)
[2019-12-16] MEDS: amLODIPine BESYLATE 10 MG TABLET (FP) PO SCH (09:50)
[2019-12-16 11:07] LABS: ANISOCYTOSIS 0; MACROCYTOSIS 0; PLATELET ESTIMATE NORMAL
[2019-12-16 14:28] VITALS: BP 149/83; PULSE 109; TEMP 98.5
[2019-12-16] MEDS ORDERED: CEFTRIAXONE 1 GM in DEXTROSE 5%-WATER - 50 ML IVPB SCH (14:45)
--- NOTE | 2019-12-16 16:32 | DS ---
Physical Exam: SUBJECTIVE: Patient seen and examined at bedside. OBJECTIVE: Vital Signs Temperature 98.5 F 12/16/19 14:00 Pulse Rate 109 H 12/16/19 14:00 Respiratory Rate 12/16/19 14:00 Blood Pressure 149/83 12/16/19 14:00 O2 Sat by Pulse Oximetry (%) 98 12/16/19 14:00 PHYSICAL EXAM GENERAL: Awake, alert, and fully oriented, in no acute distress. HEAD: Normal with no signs of trauma. EYES: PERRLA, EOMI, sclera anicteric, conjunctiva clear. EARS, NOSE, THROAT: Moist mucous membranes. NECK: Normal range of motion, supple LUNGS: Breath sounds equal, clear to auscultation bilaterally. HEART: Tachycardic, normal S1 and S2 without murmur, rub or gallop. ABDOMEN: Soft, nontender, not distended, normoactive bowel sounds. MUSCULOSKELETAL: Normal range of motion at all joints. LOWER EXTREMITIES: 2+ pulses, warm, well-perfused. SKIN: Warm, dry, normal turgor LABS Laboratory Results - last 24 hr 12/10/19 12/16/19 12/16/19 08:45 06:20 06:20 WBC 10.5 H RBC 4.33 Hgb 13.8 Hct 41.2 MCV 95.0 MCH 31.8 MCHC 33.5 RDW 15.1 Plt Count 461 H D MPV 7.5 Absolute Neuts (auto) 6.0 Neutrophils % 56.8 Neutrophils % (Manual) 49.5 D Band Neutrophils % 0.0 Lymphocytes % 29.4 Lymphocytes % (Manual) 34.6 Monocytes % 8.9 Monocytes % (Manual) 8 Eosinophils % 4.1 Eosinophils % (Manual) 3.0 Basophils % 0.8 Basophils % (Manual) 1.0 Myelocytes % (Man) 2 Promyelocytes % (Man) 0 D Blast Cells % (Manual) 0 Nucleated RBC % 0 Metamyelocytes 1 Hypochromia 0 Platelet Estimate Normal Polychromasia 0 Poikilocytosis 0 Anisocytosis 0 Microcytosis 0 Macrocytosis 0 Sodium 136 Potassium 3.8 Chloride 100 Carbon Dioxide 30 Anion Gap 7 L BUN 9.8 Creatinine 0.8 Est GFR (CKD-EPI)AfAm 106.38 Est GFR (CKD-EPI)NonAf 91.79 Random Glucose 99 Calcium 8.4 L Magnesium 1.9 TSH 6.12 H D RONNIE Homogeneous Pattern TNP RONNIE Nucleolar Pattern TNP RONNIE Spindle Ximena Pattern TNP RONNIE Midbody Pattern TNP RONNIE Centriole Pattern TNP RONNIE Nuclear Dot Pattern TNP RONNIE PCNA Pattern TNP RONNIE Nuclear Membr Pat TNP RONNIE Speckled Pattern TNP RONNIE Centromere Pattern 1:80 Ref Lab Notation HOSPITAL COURSE: Date of Admission:12/09/19 Date of Discharge: 12/16/19 Patient is a 69 year old male with a past medical history of chronic EtOH use, HTN, hypothyroidism, urinary retention who was admitted to the hospital due to urinary retention from benigh prostatic hyperplasia. Renal/bladder US showed bilateral hydronephrosis and benign prostatic hyperplasia. He had a olson placed and diuresed 5 L of urine. He was evaluated by the primary team and was monitored for electrolye abnormalities for postvoid diuresis. He was put on antibiotic prophylaxis due to prolonged urinary retention and his urine cultures have remained negative. Dr Darby from Urology was also consulted for further evaluation and scheduled a TURP that was performed on 12/12/19. The surgery was uneventful with no complications. The olson bag fluid has been slowly clearng up in color, the patient has had his olson leg bag placed and is being discharged to follow up with Dr. Darby outpatient on 12/17 at 10am. Also, during his visit results of an FOBT test came back positive after digital rectal examination and gastroenterology was consulted. GI saw him and recommended EGD/colonoscpy for further workup, as he hadn't been scoped before but the patient refused. Dr. Gaines recommended follow up outpatient for further evaluation of the source of the bleed. He was counseled on alcohol use during his stay here. He has been noncompliant with his thyroid medications. We recommend follow up with his PCP for further management. Minutes to complete discharge: 38 Discharge Summary Problems reviewed: Yes Reason For Visit: POSTOBSTRUCTIVE DIURESIS RETENTION OF URINE Current Active Problems Abnormal transaminases (Acute) Alcoholic hepatitis without ascites (Acute) Alcoholism /alcohol abuse (Acute) Hyperlipidemia (Acute) Hypothyroidism (Acute) Occult blood in stools (Acute) Postobstructive diuresis (Acute) Urinary retention (Acute) Condition: Improved - Instructions Diet, Activity, Other Instructions: Your visit You were admitted in the hospital because you were retaining urine. You were found to have a large prostate. You underwent a procedure to remove parts of your prostate gland. You will be sent home with a urethral catheter. Please follow up with the urologist for further management. You were also evaluated by the account solutions analyst because you were noted to have some blood in your stool. This was likely a complication from drinking too much alcohol. It is recommended that you undergo EGD/Colonoscopy to check your bowels for any abnormalities. You opted to defer the procedure for now. We have provided you a referral to follow up with the account solutions analyst. You were also noted to have abnormal thyroid test. Your thyroid medication, Synthroid was increased to 125mcg daily. YOU WILL NEED A REPEAT BLOOD WORK IN 1 WEEK TO CHECK YOUR THYROID LEVELS. Medications Please take the following medications as prescribed: 1. Flomax 0.4mg daily 2. Finasteride 3. Protonix 40mg twice a day for 2 weeks. 4. Synthroid increased to 125mcg daily. Please continue your other home medications. Follow up Please follow up with your primary care doctor within 1 week. You will need a repeat blood work in 1 week to check your thyroid function. Please follow up with the urologist (Dr. Darby) on at 10am(12/17). Please follow up with the account solutions analyst (Dr. Gaines) in 1-2 week. Additional info Please call 911 or go to the ED if with any worsening fevers, chills, headache, dizziness, chest pain, shortness of breath, belly pain, diarrhea, bloody urine or stools or any new concerns noted. Referrals: Robert Darby MD [Staff Physician] - 12/18/19 10:00 am Disposition: HOME - Home Medications Comprehensive Discharge Medication List: Ambulatory Orders Amlodipine Besylate 10 mg PO DAILY 12/09/19 Atorvastatin Ca [Lipitor] 20 mg PO DAILY 12/09/19 Finasteride 5 mg PO DAILY #30 tablet 12/16/19 Levothyroxine [Synthroid -] 125 mcg PO DAILY@0700 tablet 12/16/19 Nitrofurantoin Macrocrystal [Nitrofurantoin] 100 mg PO BID #8 capsule 12/16/19 Pantoprazole Sodium [Protonix -] 40 mg PO BID #28 tablet.ec 12/16/19 Tamsulosin HCl [Flomax -] 0.4 mg PO DAILY@0830 #15 cap.er.24h 12/16/19 This patient is new to me today: No Emergency Visit: Yes ED Registration Date: 12/09/19 Care time: The patient presented to the Emergency Department on the above date and was hospitalized for further evaluation of their emergent condition. Critical Care patient: No - Discharge Referral Referred to [facility] Med P.C.: No ATTENDING PHYSICIAN STATEMENT I saw and evaluated the patient. I reviewed the resident's note and discussed the case with the resident. I agree with the resident's findings and plan as documented. SUBJECTIVE: OBJECTIVE: ASSESSMENT AND PLAN:
--- NOTE | 2019-12-16 16:44 | PN ---
DAVIS Miguel Note - Objective Vital Signs: Vital Signs Temperature 98.5 F 12/16/19 14:00 Pulse Rate 109 H 12/16/19 14:00 Respiratory Rate 20 12/16/19 14:00 Blood Pressure 149/83 12/16/19 14:00 O2 Sat by Pulse Oximetry (%) 98 12/16/19 14:00 Labs/Additional Data: CBC, BMP 12/16/19 06:20 12/16/19 06:20 INR, PTT INR 1.02 (0.83-1.09) 12/12/19 06:45 Assessment/Plan West reinserted 20 F with 10 cc bag. For discharge with leg bag. Follow up in office on .
--- NOTE | 2019-12-17 10:27 | PATH ---
Surgical Pathology Report Patient Name: JEREMY RAMIREZ Med. Rec. #: [id number] /Age/Gender: 1950 (Age: 69) / M Account: [id number] Location: [facility] MED/SURG Taken: 12/12/2019 Received: 12/15/2019 Reported: 12/17/2019 Physicians: Tiffany Fan M.D. Specimen(s) Received PROSTATE CHIPS Clinical History Retention of urine Final Diagnosis PROSTATE, TRANSURETHRAL RESECTION OF PROSTATE: BENIGN PROSTATIC TISSUE WITH PATCHY CHRONIC INFLAMMATION, GLANDULAR AND STROMAL HYPERPLASIA. PROSTATIC UROTHELIUM WITH CHRONIC FOLLICULAR CYSTITIS. Electronically Signed Ghada Victor M.D. Gross Description Received in formalin labeled "prostate chips," is a 12 g, 6.5 x 3.0 x 0.4 cm aggregate of martinez, irregular, firm to rubbery portions of tissue, consistent with prostate chips. The specimen is entirely submitted in 8 cassettes. /12/15/2019 saudi/12/15/2019
--- NOTE | 2019-12-19 00:34 | PN ---
Teaching Attending Note Name of Resident: Marychuy Willoughby ATTENDING PHYSICIAN STATEMENT I saw and evaluated the patient. I reviewed the resident's note and discussed the case with the resident. I agree with the resident's findings and plan as documented. SUBJECTIVE: Patient seen and examined at bedside, admitted for urinary retention requiring olson placerment. stable for DC with Urology follow up this week. VSS. OBJECTIVE: GENERAL: Awake, alert, and fully oriented, in no acute distress. HEAD: Normal with no signs of trauma. EYES: PERRLA, EOMI, sclera anicteric, conjunctiva clear. EARS, NOSE, THROAT: Moist mucous membranes. NECK: Normal range of motion, supple LUNGS: Breath sounds equal, clear to auscultation bilaterally. HEART: Tachycardic, normal S1 and S2 without murmur, rub or gallop. ABDOMEN: Soft, nontender, not distended, normoactive bowel sounds. MUSCULOSKELETAL: Normal range of motion at all joints. LOWER EXTREMITIES: 2+ pulses, warm, well-perfused. SKIN: Warm, dry, normal turgor Vital Signs (72 hours) 12/16/19 12/16/19 12/16/19 05:52 09:00 11:00 Temperature 97.7 F 98.3 F Pulse Rate 79 101 H Respiratory 18 18 Rate Blood Pressure 126/75 152/65 O2 Sat by Pulse 98 Oximetry (%) 12/16/19 14:00 Temperature 98.5 F Pulse Rate 109 H Respiratory 20 Rate Blood Pressure 149/83 O2 Sat by Pulse 98 Oximetry (%) Microbiology 12/09/19 18:00 Urine - Urine - Catheterized Urine Culture - Final NO GROWTH OBTAINED Laboratory Tests 12/09/19 12/09/19 12/09/19 14:30 14:30 18:00 WBC RBC Hgb Hct MCV MCH MCHC RDW Plt Count MPV Absolute Neuts (auto) Neutrophils % Neutrophils % (Manual) Band Neutrophils % Lymphocytes % Lymphocytes % (Manual) Monocytes % Monocytes % (Manual) Eosinophils % Eosinophils % (Manual) Basophils % Basophils % (Manual) Myelocytes % (Man) Promyelocytes % (Man) Blast Cells % (Manual) Nucleated RBC % Metamyelocytes Hypochromia Toxic Granulation Dohle Bodies C51 Pt Weight C51 Pt Height Platelet Estimate Platelet Comment Polychromasia Poikilocytosis Basophilic Stippling Anisocytosis Microcytosis Macrocytosis Spherocytes Sickle Cells Target Cells Tear Drop Cells Ovalocytes Stomatocytes Helmet Cells Bro[place] Bodies Ava Rings [place] Cells Acanthocytes (Spur) Rouleaux Fragmented RBCs Schistocytes Haptoglobin PT with INR INR PTT (Actin FS) Sodium 137 Potassium 3.4 L Chloride 98 Carbon Dioxide 30 Anion Gap 9 BUN 11.8 Creatinine 0.7 Est GFR (CKD-EPI)AfAm 112.38 Est GFR (CKD-EPI)NonAf 96.97 Glucose Random Glucose 116 H Calcium 8.2 L Phosphorus Magnesium Iron TIBC Iron Saturation Unsaturated IBC Ferritin Total Bilirubin 0.7 Direct Bilirubin GGT AST 94 H ALT 64 H Alkaline Phosphatase 69 Liver Fibrosis Score Liver Fib Fibro Score Liver Fibrosis Stage Creatine Kinase Creatine Kinase Index CK-MB (CK-2) Troponin I Total Protein 6.2 L Albumin 3.2 L Xinmy-2-Hcrhucenfghhg Triglycerides Cholesterol Apolipoprotein A-1 Tumor Marker AFP TSH Thyroxine (T4) Urine Color Urine Appearance Urine pH Ur Specific [place] Urine Protein Urine Glucose (UA) Urine Ketones Urine Blood Urine Nitrite Urine Bilirubin Urine Urobilinogen Ur Leukocyte Esterase Urine WBC (Auto) Urine RBC (Auto) Urine Casts (Auto) U Epithel Cells (Auto) Urine Bacteria (Auto) Stool Occult Blood Positive RONNIE Homogeneous Pattern RONNIE Nucleolar Pattern RONNIE Spindle Ximena Pattern RONNIE Midbody Pattern RONNIE Centriole Pattern RONNIE Nuclear Dot Pattern RONNIE PCNA Pattern RONNIE Nuclear Membr Pat RONNIE Speckled Pattern RONNIE Centromere Pattern Smooth Musc &BRINE WELL OPERATOR Intrp Tiss Transglutamin IgG Tiss Transglutamin IgA COVID-19 (CALI) Not detected Hep A IgM Ab Confirm Hepatitis A Ab Total Hep Bs Antigen Hep Bs Antibody Hep B Core Total Ab Hep B Core IgM Ab Hepatitis Be Antibody Hepatitis Be Antigen Hep C Ab Diagnostic Hepatitis C Ab (EIA) Ref Lab Notation 12/09/19 12/10/19 12/10/19 18:00 07:30 07:30 WBC 10.4 H RBC 4.23 Hgb 13.0 Hct 39.2 MCV 92.8 MCH 30.8 MCHC 33.1 RDW 14.2 Plt Count 244 MPV 7.8 Absolute Neuts (auto) 6.3 Neutrophils % 60.4 Neutrophils % (Manual) 65.3 Band Neutrophils % 1.0 Lymphocytes % 20.2 D Lymphocytes % (Manual) 13.9 D Monocytes % 13.7 H Monocytes % (Manual) 12 H D Eosinophils % 5.0 H D Eosinophils % (Manual) 3.9 Basophils % 0.7 Basophils % (Manual) 0.0 Myelocytes % (Man) 2 D Promyelocytes % (Man) 0 Blast Cells % (Manual) 0 Nucleated RBC % 0 Metamyelocytes 1 D Hypochromia 1+ Toxic Granulation Dohle Bodies C51 Pt Weight C51 Pt Height Platelet Estimate Normal Platelet Comment Polychromasia 0 Poikilocytosis 0 Basophilic Stippling Anisocytosis 1+ Microcytosis 0 Macrocytosis 0 Spherocytes Sickle Cells Target Cells Tear Drop Cells Ovalocytes Stomatocytes Helmet Cells Bro[place] Bodies Ava Rings Rom Cells Acanthocytes (Spur) Rouleaux Fragmented RBCs Schistocytes Haptoglobin PT with INR 12.50 INR 1.06 PTT (Actin FS) 28.4 Sodium Potassium Chloride Carbon Dioxide Anion Gap BUN Creatinine Est GFR (CKD-EPI)AfAm Est GFR (CKD-EPI)NonAf Glucose Random Glucose Calcium Phosphorus Magnesium Iron TIBC Iron Saturation Unsaturated IBC Ferritin Total Bilirubin Direct Bilirubin GGT AST ALT Alkaline Phosphatase Liver Fibrosis Score Liver Fib Fibro Score Liver Fibrosis Stage Creatine Kinase Creatine Kinase Index CK-MB (CK-2) Troponin I Total Protein Albumin Vuqpv-9-Lcmwvpjlivfmv Triglycerides Cholesterol Apolipoprotein A-1 Tumor Marker AFP TSH Thyroxine (T4) Urine Color [place] Urine Appearance Clear Urine pH 7.5 D Ur Specific [place] 1.007 L Urine Protein 2+ H Urine Glucose (UA) Trace Urine Ketones Negative Urine Blood 3+ H Urine Nitrite Negative Urine Bilirubin Negative Urine Urobilinogen 1.0 Ur Leukocyte Esterase 2+ H Urine WBC (Auto) 56 Urine RBC (Auto) 5084 Urine Casts (Auto) 2 U Epithel Cells (Auto) 11 Urine Bacteria (Auto) 21 Stool Occult Blood RONNIE Homogeneous Pattern RONNIE Nucleolar Pattern RONNIE Spindle Ximena Pattern RONNIE Midbody Pattern RONNIE Centriole Pattern RONNIE Nuclear Dot Pattern RONNIE PCNA Pattern RONNIE Nuclear Membr Pat RONNIE Speckled Pattern RONNIE Centromere Pattern Smooth Musc &BRINE WELL OPERATOR Intrp Tiss Transglutamin IgG Tiss Transglutamin IgA COVID-19 (CALI) Hep A IgM Ab Confirm Hepatitis A Ab Total Hep Bs Antigen Hep Bs Antibody Hep B Core Total Ab Hep B Core IgM Ab Hepatitis Be Antibody Hepatitis Be Antigen Hep C Ab Diagnostic Hepatitis C Ab (EIA) Ref Lab Notation 12/10/19 12/10/19 12/10/19 07:30 08:45 08:45 WBC RBC Hgb Hct MCV MCH MCHC RDW Plt Count MPV Absolute Neuts (auto) Neutrophils % Neutrophils % (Manual) Band Neutrophils % Lymphocytes % Lymphocytes % (Manual) Monocytes % Monocytes % (Manual) Eosinophils % Eosinophils % (Manual) Basophils % Basophils % (Manual) Myelocytes % (Man) Promyelocytes % (Man) Blast Cells % (Manual) Nucleated RBC % Metamyelocytes Hypochromia Toxic Granulation Dohle Bodies C51 Pt Weight 182 C51 Pt Height 65 Platelet Estimate Platelet Comment Polychromasia Poikilocytosis Basophilic Stippling Anisocytosis Microcytosis Macrocytosis Spherocytes Sickle Cells Target Cells Tear Drop Cells Ovalocytes Stomatocytes Helmet Cells Bro[place] Bodies Ava Rings Rom Cells Acanthocytes (Spur) Rouleaux Fragmented RBCs Schistocytes Haptoglobin 193 PT with INR INR PTT (Actin FS) Sodium 139 Potassium 3.8 Chloride 98 Carbon Dioxide 34 H Anion Gap 8 BUN 8.2 Creatinine 0.7 Est GFR (CKD-EPI)AfAm 112.38 Est GFR (CKD-EPI)NonAf 96.97 Glucose 98 Random Glucose 104 Calcium 8.3 L Phosphorus 3.6 Magnesium 1.7 L Iron 51 TIBC 256 Iron Saturation 19 Unsaturated IBC 205 Ferritin 268.6 Total Bilirubin 0.7 0.3 Direct Bilirubin 0.2 GGT 39 AST 87 H 90 H ALT 66 H 59 H Alkaline Phosphatase 72 Liver Fibrosis Score Liver Fib Fibro Score 0.20 Liver Fibrosis Stage Creatine Kinase 281 Creatine Kinase Index 1.8 CK-MB (CK-2) 5.3 H Troponin I < 0.02 Total Protein 6.4 Albumin 3.2 L Jddnu-9-Btccxivooghtk 162 Triglycerides 92 Cholesterol 138 Apolipoprotein A-1 123 Tumor Marker AFP 3.4 TSH 11.50 H D Thyroxine (T4) 4.7 Urine Color Urine Appearance Urine pH Ur Specific [place] Urine Protein Urine Glucose (UA) Urine Ketones Urine Blood Urine Nitrite Urine Bilirubin Urine Urobilinogen Ur Leukocyte Esterase Urine WBC (Auto) Urine RBC (Auto) Urine Casts (Auto) U Epithel Cells (Auto) Urine Bacteria (Auto) Stool Occult Blood RONNIE Homogeneous Pattern TNP RONNIE Nucleolar Pattern TNP RONNIE Spindle Ximena Pattern TNP RONNIE Midbody Pattern TNP RONNIE Centriole Pattern TNP RONNIE Nuclear Dot Pattern TNP RONNIE PCNA Pattern TNP RONNIE Nuclear Membr Pat TNP RONNIE Speckled Pattern TNP RONNIE Centromere Pattern 1:80 Smooth Musc &BRINE WELL OPERATOR Intrp 6 Tiss Transglutamin IgG 2 Tiss Transglutamin IgA < 2 COVID-19 (CALI) Hep A IgM Ab Confirm Negative Negative Hepatitis A Ab Total Positive H Hep Bs Antigen Negative Negative Hep Bs Antibody Non reactive Hep B Core Total Ab Negative Hep B Core IgM Ab Negative Negative Hepatitis Be Antibody Negative Hepatitis Be Antigen Negative Hep C Ab Diagnostic 0.1 Hepatitis C Ab (EIA) <0.1 Ref Lab Notation 12/11/19 12/11/19 12/12/19 07:04 07:04 06:45 WBC 8.4 RBC 4.10 Hgb 12.7 Hct 38.0 MCV 92.5 MCH 31.0 MCHC 33.5 RDW 14.5 Plt Count 237 MPV 7.4 L Absolute Neuts (auto) 4.2 Neutrophils % 49.3 Neutrophils % (Manual) 37.6 L D Band Neutrophils % 0.0 Lymphocytes % 28.3 D Lymphocytes % (Manual) 36.6 D Monocytes % 12.3 H Monocytes % (Manual) 10 Eosinophils % 9.2 H D Eosinophils % (Manual) 10.9 H D Basophils % 0.9 Basophils % (Manual) 0.0 Myelocytes % (Man) 2 Promyelocytes % (Man) 1 D Blast Cells % (Manual) 0 Nucleated RBC % 0 Metamyelocytes 0 D Hypochromia 0 Toxic Granulation Dohle Bodies C51 Pt Weight C51 Pt Height Platelet Estimate Normal Platelet Comment Polychromasia 0 Poikilocytosis 0 Basophilic Stippling Anisocytosis 0 Microcytosis 0 Macrocytosis 0 Spherocytes Sickle Cells Target Cells Tear Drop Cells Ovalocytes Stomatocytes Helmet Cells Bro[place] Bodies Ava Rings [place] Cells Acanthocytes (Spur) Rouleaux Fragmented RBCs Schistocytes Haptoglobin PT with INR INR PTT (Actin FS) Sodium 137 140 Potassium 3.0 L 3.5 Chloride 99 102 Carbon Dioxide 32 32 Anion Gap 7 L 6 L BUN 11.7 12.7 Creatinine 0.7 0.7 Est GFR (CKD-EPI)AfAm 112.38 112.38 Est GFR (CKD-EPI)NonAf 96.97 96.97 Glucose Random Glucose 95 91 Calcium 7.7 L 7.6 L Phosphorus Magnesium 1.7 L Iron TIBC Iron Saturation Unsaturated IBC Ferritin Total Bilirubin 0.4 0.4 Direct Bilirubin 0.1 0.1 GGT AST 56 H 45 H ALT 56 58 Alkaline Phosphatase 65 72 Liver Fibrosis Score Liver Fib Fibro Score Liver Fibrosis Stage Creatine Kinase 116 Creatine Kinase Index CK-MB (CK-2) Troponin I < 0.02 Total Protein 5.8 L 6.2 L Albumin 2.8 L 3.0 L Bgzip-2-Tazkilezlwfri Triglycerides Cholesterol Apolipoprotein A-1 Tumor Marker AFP TSH Thyroxine (T4) Urine Color Urine Appearance Urine pH Ur Specific [place] Urine Protein Urine Glucose (UA) Urine Ketones Urine Blood Urine Nitrite Urine Bilirubin Urine Urobilinogen Ur Leukocyte Esterase Urine WBC (Auto) Urine RBC (Auto) Urine Casts (Auto) U Epithel Cells (Auto) Urine Bacteria (Auto) Stool Occult Blood RONNIE Homogeneous Pattern RONNIE Nucleolar Pattern RONNIE Spindle Ximena Pattern RONNIE Midbody Pattern RONNIE Centriole Pattern RONNIE Nuclear Dot Pattern RONNIE PCNA Pattern RONNIE Nuclear Membr Pat RONNIE Speckled Pattern RONNIE Centromere Pattern Smooth Musc &BRINE WELL OPERATOR Intrp Tiss Transglutamin IgG Tiss Transglutamin IgA COVID-19 (CALI) Hep A IgM Ab Confirm Hepatitis A Ab Total Hep Bs Antigen Hep Bs Antibody Hep B Core Total Ab Hep B Core IgM Ab Hepatitis Be Antibody Hepatitis Be Antigen Hep C Ab Diagnostic Hepatitis C Ab (EIA) Ref Lab Notation 12/12/19 12/12/19 12/13/19 06:45 06:45 06:30 WBC 9.0 12.1 H RBC 4.32 3.88 L Hgb 13.3 12.0 Hct 40.4 36.4 MCV 93.4 93.8 MCH 30.7 31.0 MCHC 32.8 33.1 RDW 14.5 14.8 Plt Count 268 278 MPV 7.4 L 7.2 L Absolute Neuts (auto) 5.0 8.9 H Neutrophils % 55.9 73.6 D Neutrophils % (Manual) 60.2 D 61.4 Band Neutrophils % 0.0 0.0 Lymphocytes % 22.8 14.0 D Lymphocytes % (Manual) 16.5 D 21.8 D Monocytes % 11.6 H 11.7 H Monocytes % (Manual) 5 17 H D Eosinophils % 9.0 H 0.5 D Eosinophils % (Manual) 14.6 H 0.0 D Basophils % 0.7 0.2 Basophils % (Manual) 1.9 D 0.0 Myelocytes % (Man) 0 D 0 Promyelocytes % (Man) 0 D 0 Blast Cells % (Manual) 0 0 Nucleated RBC % 0 0 Metamyelocytes 0 0 Hypochromia 0 Toxic Granulation Dohle Bodies C51 Pt Weight C51 Pt Height Platelet Estimate Normal Normal Platelet Comment Polychromasia 0 Poikilocytosis 0 Basophilic Stippling Anisocytosis 0 Microcytosis 0 Macrocytosis 0 Spherocytes Sickle Cells Target Cells Tear Drop Cells Ovalocytes Stomatocytes Helmet Cells Bro[place] Bodies Ava Rings [place] Cells Acanthocytes (Spur) Rouleaux Fragmented RBCs Schistocytes Haptoglobin PT with INR 12.00 INR 1.02 PTT (Actin FS) Sodium Potassium Chloride Carbon Dioxide Anion Gap BUN Creatinine Est GFR (CKD-EPI)AfAm Est GFR (CKD-EPI)NonAf Glucose Random Glucose Calcium Phosphorus Magnesium Iron TIBC Iron Saturation Unsaturated IBC Ferritin Total Bilirubin Direct Bilirubin GGT AST ALT Alkaline Phosphatase Liver Fibrosis Score Liver Fib Fibro Score Liver Fibrosis Stage Creatine Kinase Creatine Kinase Index CK-MB (CK-2) Troponin I Total Protein Albumin Gvrkj-0-Nlbxswkcdyduv Triglycerides Cholesterol Apolipoprotein A-1 Tumor Marker AFP TSH Thyroxine (T4) Urine Color Urine Appearance Urine pH Ur Specific [place] Urine Protein Urine Glucose (UA) Urine Ketones Urine Blood Urine Nitrite Urine Bilirubin Urine Urobilinogen Ur Leukocyte Esterase Urine WBC (Auto) Urine RBC (Auto) Urine Casts (Auto) U Epithel Cells (Auto) Urine Bacteria (Auto) Stool Occult Blood RONNIE Homogeneous Pattern RONNIE Nucleolar Pattern RONNIE Spindle Ximena Pattern RONNIE Midbody Pattern RONNIE Centriole Pattern RONNIE Nuclear Dot Pattern RONNIE PCNA Pattern RONNIE Nuclear Membr Pat RONNIE Speckled Pattern RONNIE Centromere Pattern Smooth Musc &BRINE WELL OPERATOR Intrp Tiss Transglutamin IgG Tiss Transglutamin IgA COVID-19 (CALI) Hep A IgM Ab Confirm Hepatitis A Ab Total Hep Bs Antigen Hep Bs Antibody Hep B Core Total Ab Hep B Core IgM Ab Hepatitis Be Antibody Hepatitis Be Antigen Hep C Ab Diagnostic Hepatitis C Ab (EIA) Ref Lab Notation 12/13/19 12/14/19 12/14/19 06:30 06:40 06:40 WBC 9.2 RBC 3.96 L Hgb 12.4 Hct 37.3 MCV 94.2 MCH 31.4 MCHC 33.3 RDW 14.9 Plt Count 313 MPV 7.3 L Absolute Neuts (auto) 4.9 Neutrophils % 53.9 D Neutrophils % (Manual) 50.5 Band Neutrophils % 0.0 Lymphocytes % 28.9 D Lymphocytes % (Manual) 32.7 D Monocytes % 10.9 H Monocytes % (Manual) 6 Eosinophils % 5.5 H D Eosinophils % (Manual) 7.9 H D Basophils % 0.8 D Basophils % (Manual) 0.0 Myelocytes % (Man) 1 D Promyelocytes % (Man) 0 Blast Cells % (Manual) 0 Nucleated RBC % 1 H Metamyelocytes 0 Hypochromia 0 Toxic Granulation Dohle Bodies C51 Pt Weight C51 Pt Height Platelet Estimate Normal Platelet Comment Present Polychromasia 0 Poikilocytosis 0 Basophilic Stippling Anisocytosis 0 Microcytosis 0 Macrocytosis 0 Spherocytes Sickle Cells Target Cells Tear Drop Cells Ovalocytes Stomatocytes Helmet Cells Bro[place] Bodies Ava Rings [place] Cells Acanthocytes (Spur) Rouleaux Fragmented RBCs Schistocytes Haptoglobin PT with INR INR PTT (Actin FS) Sodium 137 140 Potassium 3.8 4.2 Chloride 100 104 Carbon Dioxide 30 30 Anion Gap 6 L 6 L BUN 9.5 7.4 Creatinine 0.7 0.8 Est GFR (CKD-EPI)AfAm 112.38 106.38 Est GFR (CKD-EPI)NonAf 96.97 91.79 Glucose Random Glucose 95 144 H Calcium 7.4 L 8.2 L Phosphorus Magnesium 1.7 L Iron TIBC Iron Saturation Unsaturated IBC Ferritin Total Bilirubin 0.4 Direct Bilirubin GGT AST 39 H ALT 54 Alkaline Phosphatase 67 Liver Fibrosis Score Liver Fib Fibro Score Liver Fibrosis Stage Creatine Kinase Creatine Kinase Index CK-MB (CK-2) Troponin I Total Protein 5.8 L Albumin 2.8 L Uvxaf-9-Pjohxgpgslbcj Triglycerides Cholesterol Apolipoprotein A-1 Tumor Marker AFP TSH Thyroxine (T4) Urine Color Urine Appearance Urine pH Ur Specific [place] Urine Protein Urine Glucose (UA) Urine Ketones Urine Blood Urine Nitrite Urine Bilirubin Urine Urobilinogen Ur Leukocyte Esterase Urine WBC (Auto) Urine RBC (Auto) Urine Casts (Auto) U Epithel Cells (Auto) Urine Bacteria (Auto) Stool Occult Blood RONNIE Homogeneous Pattern RONNIE Nucleolar Pattern RONNIE Spindle Ximena Pattern RONNIE Midbody Pattern RONNIE Centriole Pattern RONNIE Nuclear Dot Pattern RONNIE PCNA Pattern RONNIE Nuclear Membr Pat RONNIE Speckled Pattern RONNIE Centromere Pattern Smooth Musc &BRINE WELL OPERATOR Intrp Tiss Transglutamin IgG Tiss Transglutamin IgA COVID-19 (CALI) Hep A IgM Ab Confirm Hepatitis A Ab Total Hep Bs Antigen Hep Bs Antibody Hep B Core Total Ab Hep B Core IgM Ab Hepatitis Be Antibody Hepatitis Be Antigen Hep C Ab Diagnostic Hepatitis C Ab (EIA) Ref Lab Notation 12/15/19 12/15/19 12/16/19 06:45 06:45 06:20 WBC 10.4 H RBC 4.12 Hgb 13.0 Hct 38.7 MCV 93.9 MCH 31.5 MCHC 33.6 RDW 15.0 Plt Count 371 MPV 7.3 L Absolute Neuts (auto) 5.5 Neutrophils % 53.0 Neutrophils % (Manual) 36.6 L D Band Neutrophils % 0.0 Lymphocytes % 29.8 Lymphocytes % (Manual) 41.6 H D Monocytes % 11.1 H Monocytes % (Manual) 12 H D Eosinophils % 5.2 H Eosinophils % (Manual) 2.9 Basophils % 0.9 Basophils % (Manual) 3.0 H D Myelocytes % (Man) 2 D Promyelocytes % (Man) 1 D Blast Cells % (Manual) 0 Nucleated RBC % 0 Metamyelocytes 1 D Hypochromia 0 Toxic Granulation 0 Dohle Bodies 0 C51 Pt Weight C51 Pt Height Platelet Estimate Normal Platelet Comment Polychromasia 0 Poikilocytosis 0 Basophilic Stippling 0 Anisocytosis 0 Microcytosis 0 Macrocytosis 0 Spherocytes 0 Sickle Cells 0 Target Cells 0 Tear Drop Cells 0 Ovalocytes 0 Stomatocytes 0 Helmet Cells 0 Bro[place] Bodies 0 Ava Rings 0 Rom Cells 0 Acanthocytes (Spur) 0 Rouleaux 0 Fragmented RBCs 0 Schistocytes 0 Haptoglobin PT with INR INR PTT (Actin FS) Sodium 137 136 Potassium 4.0 3.8 Chloride 101 100 Carbon Dioxide 30 30 Anion Gap 6 L 7 L BUN 11.3 9.8 Creatinine 0.8 0.8 Est GFR (CKD-EPI)AfAm 106.38 106.38 Est GFR (CKD-EPI)NonAf 91.79 91.79 Glucose Random Glucose 99 99 Calcium 8.3 L 8.4 L Phosphorus Magnesium 1.9 Iron TIBC Iron Saturation Unsaturated IBC Ferritin Total Bilirubin Direct Bilirubin GGT AST ALT Alkaline Phosphatase Liver Fibrosis Score Liver Fib Fibro Score Liver Fibrosis Stage Creatine Kinase Creatine Kinase Index CK-MB (CK-2) Troponin I Total Protein Albumin Zaikk-5-Wkhmyeworczez Triglycerides Cholesterol Apolipoprotein A-1 Tumor Marker AFP TSH 6.12 H D Thyroxine (T4) Urine Color Urine Appearance Urine pH Ur Specific [place] Urine Protein Urine Glucose (UA) Urine Ketones Urine Blood Urine Nitrite Urine Bilirubin Urine Urobilinogen Ur Leukocyte Esterase Urine WBC (Auto) Urine RBC (Auto) Urine Casts (Auto) U Epithel Cells (Auto) Urine Bacteria (Auto) Stool Occult Blood RONNIE Homogeneous Pattern RONNIE Nucleolar Pattern RONNIE Spindle Ximena Pattern RONNIE Midbody Pattern RONNIE Centriole Pattern RONNIE Nuclear Dot Pattern RONNIE PCNA Pattern RONNIE Nuclear Membr Pat RONNIE Speckled Pattern RONNIE Centromere Pattern Smooth Musc &BRINE WELL OPERATOR Intrp Tiss Transglutamin IgG Tiss Transglutamin IgA COVID-19 (CALI) Hep A IgM Ab Confirm Hepatitis A Ab Total Hep Bs Antigen Hep Bs Antibody Hep B Core Total Ab Hep B Core IgM Ab Hepatitis Be Antibody Hepatitis Be Antigen Hep C Ab Diagnostic Hepatitis C Ab (EIA) Ref Lab Notation 12/16/19 06:20 WBC 10.5 H RBC 4.33 Hgb 13.8 Hct 41.2 MCV 95.0 MCH 31.8 MCHC 33.5 RDW 15.1 Plt Count 461 H D MPV 7.5 Absolute Neuts (auto) 6.0 Neutrophils % 56.8 Neutrophils % (Manual) 49.5 D Band Neutrophils % 0.0 Lymphocytes % 29.4 Lymphocytes % (Manual) 34.6 Monocytes % 8.9 Monocytes % (Manual) 8 Eosinophils % 4.1 Eosinophils % (Manual) 3.0 Basophils % 0.8 Basophils % (Manual) 1.0 Myelocytes % (Man) 2 Promyelocytes % (Man) 0 D Blast Cells % (Manual) 0 Nucleated RBC % 0 Metamyelocytes 1 Hypochromia 0 Toxic Granulation Dohle Bodies C51 Pt Weight C51 Pt Height Platelet Estimate Normal Platelet Comment Polychromasia 0 Poikilocytosis 0 Basophilic Stippling Anisocytosis 0 Microcytosis 0 Macrocytosis 0 Spherocytes Sickle Cells Target Cells Tear Drop Cells Ovalocytes Stomatocytes Helmet Cells Bro[place] Bodies Ava Rings Rom Cells Acanthocytes (Spur) Rouleaux Fragmented RBCs Schistocytes Haptoglobin PT with INR INR PTT (Actin FS) Sodium Potassium Chloride Carbon Dioxide Anion Gap BUN Creatinine Est GFR (CKD-EPI)AfAm Est GFR (CKD-EPI)NonAf Glucose Random Glucose Calcium Phosphorus Magnesium Iron TIBC Iron Saturation Unsaturated IBC Ferritin Total Bilirubin Direct Bilirubin GGT AST ALT Alkaline Phosphatase Liver Fibrosis Score Liver Fib Fibro Score Liver Fibrosis Stage Creatine Kinase Creatine Kinase Index CK-MB (CK-2) Troponin I Total Protein Albumin Cnixe-6-Qnnevnhhbnjvz Triglycerides Cholesterol Apolipoprotein A-1 Tumor Marker AFP TSH Thyroxine (T4) Urine Color Urine Appearance Urine pH Ur Specific [place] Urine Protein Urine Glucose (UA) Urine Ketones Urine Blood Urine Nitrite Urine Bilirubin Urine Urobilinogen Ur Leukocyte Esterase Urine WBC (Auto) Urine RBC (Auto) Urine Casts (Auto) U Epithel Cells (Auto) Urine Bacteria (Auto) Stool Occult Blood RONNIE Homogeneous Pattern RONNIE Nucleolar Pattern RONNIE Spindle Ximena Pattern RONNIE Midbody Pattern RONNIE Centriole Pattern RONNIE Nuclear Dot Pattern RONNIE PCNA Pattern RONNIE Nuclear Membr Pat RONNIE Speckled Pattern RONNIE Centromere Pattern Smooth Musc &BRINE WELL OPERATOR Intrp Tiss Transglutamin IgG Tiss Transglutamin IgA COVID-19 (CALI) Hep A IgM Ab Confirm Hepatitis A Ab Total Hep Bs Antigen Hep Bs Antibody Hep B Core Total Ab Hep B Core IgM Ab Hepatitis Be Antibody Hepatitis Be Antigen Hep C Ab Diagnostic Hepatitis C Ab (EIA) Ref Lab Notation Home Medications Medication Instructions Recorded Amlodipine Besylate 10 mg PO DAILY 12/09/19 Atorvastatin Ca [Lipitor] 20 mg PO DAILY 12/09/19 Finasteride 5 mg PO DAILY #30 tablet 12/16/19 Levothyroxine [Synthroid -] 125 mcg PO DAILY@0700 tablet 12/16/19 Nitrofurantoin Macrocrystal 100 mg PO BID #8 capsule 12/16/19 [Nitrofurantoin] Pantoprazole Sodium [Protonix -] 40 mg PO BID #28 tablet.ec 12/16/19 Tamsulosin HCl [Flomax -] 0.4 mg PO DAILY@0830 #15 cap.er.24h 12/16/19 ASSESSMENT AND PLAN: 69 M BPH with LUTS/urinary retention HTN HLD PSA Etoh abuse Hypothyroidism GERD UTI Plan: Finish Abx with MAcrobid 100mg BID for UTI Keep olson to leg bag until Urology follow up in clinic Flomax/Proscar to continue Cont. BP/statin Counseled on Etoh cessation Stable for DC home
== END 2019-12-16 16:59 | disposition home or self-care (01) | DRG 713 ==
LOC: JER 13:31 → JERBED 16:35 → J6WEST-2 12-10 10:23 → J7W 12-11 09:55
PROVIDERS: ADMIT Internal Medicine
PROC: 0VB08ZZ Excision of Prostate, Via Natural or Artificial Opening Endoscopic (ICD-10-PCS; 2019-12-12)
PROC: 0V507ZZ Destruction of Prostate, Via Natural or Artificial Opening (ICD-10-PCS; principal; 2019-12-12 15:30)
DX: N40.1 Benign prostatic hyperplasia with lower urinary tract symptoms (principal); K29.21 Alcoholic gastritis with bleeding; N39.0 Urinary tract infection, site not specified; F10.230 Alcohol dependence with withdrawal, uncomplicated; N13.30 Unspecified hydronephrosis; N13.8 Other obstructive and reflux uropathy; I10 Essential (primary) hypertension; E03.9 Hypothyroidism, unspecified; J45.909 Unspecified asthma, uncomplicated; K70.10 Alcoholic hepatitis without ascites; N32.89 Other specified disorders of bladder; E78.5 Hyperlipidemia, unspecified; K76.0 Fatty (change of) liver, not elsewhere classified; R19.5 Other fecal abnormalities; R74.8 Abnormal levels of other serum enzymes; E87.6 Hypokalemia; E83.42 Hypomagnesemia
CPT/HCPCS: 36415; 76705-TC; 76775-TC; 76856-TC; 80048; 80053; 80074; 80076; 81003; 82105; 82272; 82550; 82553; 82728; 83516; 83540; 83550; 83735; 84100; 84436; 84443; 84484; 85025; 85610; 85730; 86038; 86704; 86706; 86707; 86708; 86709; 86803; 87086; 87340; 88305-TC; 93005; 93010; 93970-TC; 94760; 99285-25; U0003

== ENCOUNTER 2021-05-09 10:41 | Inpatient (IN) | payer OTHER ==
[2021-05-09] MEDS ORDERED: SODIUM CHLORIDE 0.9% 1000 ML INFUS.BAG IV ONE (13:02)
[2021-05-09] MEDS ORDERED: ONDANSETRON 4 MG/2 ML VIAL IVPUSH ONE (14:18)
[2021-05-09 14:28] LABS: BASO % 0.6 % (0-2.0); EOS % 0.1 % (0-4.5); HEMATOCRIT 39.3 % (35.4-49); HEMOGLOBIN 13.6 GM/dL (11.7-16.9); LYMPH % 15.4 % (8-40); MCHC 34.6 g/dl (32.0-35.9); MEAN CELL VOLUME 92.4 fl (80-96); MEAN PLT VOLUME 6.4 fl (7.5-11.1); MONO % 14.5 % (3.8-10.2); NEUT % 69.4 % (42.8-82.8); PLATELET COUNT 411 10^3/uL (134-434); RBC 4.25 M/mm3 (4.00-5.60); RDW 17.5 % (11.9-15.9); WHITE BLOOD COUNT 4.9 K/mm3 (4.0-10.0)
[2021-05-09] MEDS ORDERED: ONDANSETRON 4 MG/2 ML VIAL ONE (14:29)
[2021-05-09 14:41] LABS: ALBUMIN 4.1 g/dl (3.4-5.0); BLOOD UREA NITROGEN 6.1 mg/dL (7-18); CALCIUM 8.2 mg/dL (8.5-10.1)
[2021-05-09 14:46] LABS: BILIRUBIN,TOTAL 0.4 mg/dL (0.2-1); TOT PROT 7.1 g/dl (6.4-8.2)
[2021-05-09] MEDS ORDERED: LACTATED RINGERS SOLUTION 1000 ML INFUS.BAG IV ONE (15:18)
[2021-05-09] MEDS ORDERED: POTASSIUM CHLORIDE TABS 20 MEQ TABLET.ER (FP) PO ONE ×2 (15:18→15:40)
[2021-05-09] MEDS ORDERED: diazePAM 5 MG TABLET PO PRN (19:03)
[2021-05-09 20:49] LABS: PH,URINE 8.5 (5.0-8.0); URINE APPEARANCE CLEAR; URINE BILIRUBIN NEGATIVE (NEGATIVE); URINE COLOR YELLOW; URINE GLUCOSE (UA) NEGATIVE (NEGATIVE); URINE KETONE TRACE (NEGATIVE); URINE LEUK ESTERASE NEGATIVE (NEGATIVE); URINE NITRITE NEGATIVE (NEGATIVE); URINE PROTEIN NEGATIVE (NEGATIVE); URINE UROBILINOGEN 0.2 mg/dL (0.2-1.0)
[2021-05-09] MEDS: SODIUM CHLORIDE 1,000 ML IV SCH (21:00)
[2021-05-09 21:02] LABS: CREATININE, URINE RANDOM < 13.0 mg/dL (30-150)
[2021-05-09 21:41] LABS: CHLORIDE 103 mmol/L (98-107); SODIUM 139 mmol/L (136-145)
[2021-05-09 21:42] LABS: CALCIUM 8.2 mg/dL (8.5-10.1)
[2021-05-09 21:43] LABS: ANION GAP 10 MMOL/L (8-16); BLOOD UREA NITROGEN 3.8 mg/dL (7-18); CO2 26 mmol/L (21-32); GLUCOSE,RANDOM 127 mg/dL (74-106)
[2021-05-09 21:46] LABS: CREATININE 1.8 mg/dL (0.55-1.3)
[2021-05-10 06:51] LABS: HEMATOCRIT 42.2 % (35.4-49); HEMOGLOBIN 14.7 GM/dL (11.7-16.9); MCHC 34.8 g/dl (32.0-35.9); MEAN PLT VOLUME 6.5 fl (7.5-11.1); PLATELET COUNT 427 10^3/uL (134-434); RBC 4.44 M/mm3 (4.00-5.60); RDW 17.8 % (11.9-15.9); WHITE BLOOD COUNT 5.5 K/mm3 (4.0-10.0)
[2021-05-10 07:12] LABS: BLOOD UREA NITROGEN 5.3 mg/dL (7-18); MAGNESIUM 2.2 mg/dL (1.8-2.4)
[2021-05-10 07:15] LABS: CREATININE 1.5 mg/dL (0.55-1.3)
[2021-05-10] MEDS ORDERED: MULTIVITAMINS (DAILY MVI) TABLET (FP) ONE (09:21)
[2021-05-10] MEDS ORDERED: THIAMINE HCL 100 MG TABLET (FP) ONE (09:22)
[2021-05-10] MEDS ORDERED: amLODIPine BESYLATE 5 MG TABLET (FP) ONE (09:22)
[2021-05-10] MEDS ORDERED: FOLIC ACID 1 MG TABLET (FP) ONE (09:22)
[2021-05-10] MEDS: amLODIPine BESYLATE 10 MG TABLET (FP) PO SCH (09:24)
[2021-05-10] MEDS: FOLIC ACID 1 MG TABLET (FP) PO SCH (09:24)
[2021-05-10] MEDS: MULTIVITAMINS (DAILY MVI) TABLET (FP) PO SCH (09:24)
[2021-05-10] MEDS: THIAMINE HCL 100 MG TABLET (FP) PO SCH (09:24)
[2021-05-10] MEDS: FINASTERIDE 5 MG TABLET (FP) PO SCH (09:25)
[2021-05-10] MEDS: LEVOTHYROXINE NA 112 MCG TABLET (FP) PO SCH (09:25)
[2021-05-10] MEDS: SODIUM CHLORIDE 1,000 ML IV SCH ×2 (21:18→22:01)
[2021-05-11 00:04] VITALS: BMI 27.7
[2021-05-11] MEDS: LEVOTHYROXINE NA 112 MCG TABLET (FP) PO SCH (06:07)
[2021-05-11] MEDS: MULTIVITAMINS (DAILY MVI) TABLET (FP) PO SCH (10:26)
[2021-05-11] MEDS: THIAMINE HCL 100 MG TABLET (FP) PO SCH (10:26)
[2021-05-11] MEDS: amLODIPine BESYLATE 10 MG TABLET (FP) PO SCH (10:26)
[2021-05-11] MEDS: FOLIC ACID 1 MG TABLET (FP) PO SCH (10:26)
[2021-05-11] MEDS: FINASTERIDE 5 MG TABLET (FP) PO SCH (10:26)
[2021-05-11 14:43] VITALS: BP 140/90; PULSE 98; TEMP 98.2
== END 2021-05-11 19:30 | disposition home or self-care (01) | DRG 918 ==
LOC: JER 10:41 → JERBED 15:19 → J6S 05-10 20:09
PROVIDERS: ADMIT Internal Medicine
DX: T51.2X1A Toxic effect of 2-Propanol, accidental (unintentional), initial encounter (principal); N17.9 Acute kidney failure, unspecified; E03.9 Hypothyroidism, unspecified; I10 Essential (primary) hypertension; N40.0 Benign prostatic hyperplasia without lower urinary tract symptoms; R11.2 Nausea with vomiting, unspecified; F10.20 Alcohol dependence, uncomplicated; E78.5 Hyperlipidemia, unspecified; Y92.89 Other specified places as the place of occurrence of the external cause
CPT/HCPCS: 36415; 70450-TC; 72125-TC; 76775-TC; 80048; 80053; 80307; 81003; 82570; 83036; 83605; 83735; 83930; 84100; 84300; 84439; 84443; 85025; 85027; 93005; 93010; 99285-25; C9803; G0480; U0003; U0005

== ENCOUNTER 2022-06-26 14:23 | Inpatient (IN) | payer OTHER ==
[2022-06-26] MEDS ORDERED: THIAMINE HCL 200 MG/2 ML VIAL IVPB ONE (15:17)
[2022-06-26] MEDS ORDERED: FOLIC ACID INJECTION - 1 MG, THIAMINE HCL 100 MG, MULTIVIT INJECTION ADULT 10 ML in SOD... IVPB ONE (15:17)
[2022-06-26] MEDS ORDERED: ONDANSETRON 4 MG/2 ML VIAL IVPUSH ONE (16:48)
[2022-06-26] MEDS ORDERED: PANTOPRAZOLE SODIUM 40 MG VIAL IVPUSH ONE ×2 (17:37→17:40)
[2022-06-26] MEDS ORDERED: OCTREOTIDE ACETATE 50 MCG/1 ML - 1 ML VIAL IVPUSH ONE (17:38)
[2022-06-26] MEDS ORDERED: OCTREOTIDE ACETATE 200 MCG, OCTREOTIDE ACETATE 1,000 MCG in DEXTROSE 5%-WATER - 496 ML IVPB SCH (17:45)
[2022-06-26 17:56] LABS: VENOUS BASE EXCESS -2.4 mmol/L (-2-2); VENOUS O2 SATURATION 91.8 % (70-80); VENOUS PCO2 32.8 mmHg (38-52); VENOUS PH 7.424 (7.310-7.410)
[2022-06-26] MEDS ORDERED: THIAMINE HCL 200 MG/2 ML VIAL ONE (18:02)
[2022-06-26] MEDS ORDERED: PANTOPRAZOLE SODIUM 40 MG VIAL ONE (18:02)
[2022-06-26] MEDS ORDERED: ONDANSETRON 4 MG/2 ML VIAL ONE (18:10)
[2022-06-26 18:15] LABS: CHLORIDE 91 mmol/L (98-107); SODIUM 133 mmol/L (136-145)
[2022-06-26 18:18] LABS: ALBUMIN 3.8 g/dl (3.4-5.0); ANION GAP 20 MMOL/L (8-16); BLOOD UREA NITROGEN 11.1 mg/dL (7-18); CO2 22 mmol/L (21-32); GLUCOSE,RANDOM 196 mg/dL (74-106); LIPASE 50 U/L (73-393); MAGNESIUM 1.6 mg/dL (1.8-2.4)
[2022-06-26 18:20] LABS: SGOT/AST 43 U/L (15-37); SGPT/ALT 34 U/L (13-61)
[2022-06-26 18:21] LABS: PHOSPHOROUS 2.7 mg/dL (2.5-4.9)
[2022-06-26 18:22] LABS: BILIRUBIN,TOTAL 0.7 mg/dL (0.2-1); TOT PROT 7.2 g/dl (6.4-8.2)
[2022-06-26 18:23] LABS: ALK PHOS 77 U/L (45-117)
[2022-06-26] MEDS ORDERED: MAGNESIUM SULF 50% (8.12 MEQ/2 ML-1 GM VIAL) IVPB ONE (18:46)
[2022-06-26] MEDS ORDERED: MAGNESIUM SULFATE IN WATER 2 GM/50 ML IVPB IVPB ONE (19:16)
[2022-06-26 19:22] LABS: BASO % 0.2 % (0-2.0); HEMATOCRIT 38.8 % (35.4-49); LYMPH % 6.4 % (8-40); MCH 30.6 pg (25.7-33.7); MCHC 33.5 g/dl (32.0-35.9); MEAN CELL VOLUME 91.5 fl (80-96); MEAN PLT VOLUME 7.7 fl (7.5-11.1); MONO % 5.8 % (3.8-10.2); NEUT % 87.6 % (42.8-82.8); PLATELET COUNT 330 10^3/uL (134-434); RBC 4.23 M/mm3 (4.00-5.60); WHITE BLOOD COUNT 11.6 K/mm3 (4.0-10.0)
[2022-06-26] MEDS ORDERED: KCL 10 MEQ IVPB 10 MEQ/100 ML INFUS.BAG IVPB ONE ×3 (20:28→23:44)
[2022-06-26] MEDS: KCL 10 MEQ IVPB 10 MEQ/100 ML INFUS.BAG IVPB SCH ×3 (20:32→23:46)
[2022-06-26 21:20] LABS: EPI CELLS 12 /uL (0-25.1); HYALINE CASTS 0 /uL (0-3.1); URINE APPEARANCE CLEAR; URINE BACTERIA 13 /uL (0-1359); URINE BILIRUBIN NEGATIVE (NEGATIVE); URINE COLOR YELLOW; URINE GLUCOSE (UA) NEGATIVE (NEGATIVE); URINE KETONE NEGATIVE (NEGATIVE); URINE LEUK ESTERASE TRACE (NEGATIVE); URINE NITRITE NEGATIVE (NEGATIVE); URINE PROTEIN TRACE (NEGATIVE); URINE RBC 118 /uL (0-23.9); URINE UROBILINOGEN 0.2 mg/dL (0.2-1.0); URINE WBC 29 /uL (0-25.8)
[2022-06-26 23:30] LABS: BASO % 0.6 % (0-2.0); EOS % 0.1 % (0-4.5); HEMATOCRIT 38.5 % (35.4-49); MCH 30.4 pg (25.7-33.7); MCHC 33.7 g/dl (32.0-35.9); MEAN CELL VOLUME 90.4 fl (80-96); MEAN PLT VOLUME 7.4 fl (7.5-11.1); MONO % 9.1 % (3.8-10.2); NEUT % 73.2 % (42.8-82.8); PLATELET COUNT 296 10^3/uL (134-434); RBC 4.26 M/mm3 (4.00-5.60); WHITE BLOOD COUNT 11.6 K/mm3 (4.0-10.0)
[2022-06-27] MEDS ORDERED: ACETAMINOPHEN INJECTION 100 ML IVPB ONE
[2022-06-27] MEDS ORDERED: SODIUM CHLORIDE 1,000 ML IV SCH (01:30)
[2022-06-27] MEDS ORDERED: ACETAMINOPHEN 1000 MG/100 ML BAG IVPB PRN (01:34)
[2022-06-27] MEDS ORDERED: chlordiazePOXIDE HCL 25 MG CAPSULE PO PRN (01:36)
[2022-06-27] MEDS ORDERED: LORazepam 2 MG/ML SDV VIAL IVPUSH PRN (01:37)
[2022-06-27] MEDS ORDERED: chlordiazePOXIDE HCL 10 MG CAPSULE ONE (02:10)
[2022-06-27] MEDS ORDERED: TRIMETHOBENZAMIDE HCL 200MG/2ML INJ IM PRN (03:31)
[2022-06-27 04:11] VITALS: RESP 18; BMI 28.0
[2022-06-27] MEDS: chlordiazePOXIDE HCL 25 MG CAPSULE PO SCH ×3 (05:30→17:20)
[2022-06-27] MEDS ORDERED: LEVOTHYROXINE NA 112 MCG TABLET (FP) PO SCH (07:00)
[2022-06-27] MEDS ORDERED: TAMSULOSIN HCL 0.4 MG CAP PO SCH ×2 (08:30→22:00)
[2022-06-27 09:58] LABS: HEMOGLOBIN 13.6 GM/dL (11.7-16.9); MCH 31.1 pg (25.7-33.7); MEAN CELL VOLUME 91.5 fl (80-96); MEAN PLT VOLUME 7.9 fl (7.5-11.1); PLATELET COUNT 295 10^3/uL (134-434); RBC 4.37 M/mm3 (4.00-5.60); WHITE BLOOD COUNT 10.1 K/mm3 (4.0-10.0)
[2022-06-27] MEDS ORDERED: amLODIPine BESYLATE 10 MG TABLET (FP) PO SCH (10:00)
[2022-06-27] MEDS ORDERED: PANTOPRAZOLE SODIUM 40 MG VIAL IVPUSH SCH (10:00)
[2022-06-27] MEDS ORDERED: THIAMINE HCL 200 MG/2 ML VIAL IVPB SCH (10:00)
[2022-06-27] MEDS ORDERED: FOLIC ACID 1 MG TABLET (FP) PO SCH (10:00)
[2022-06-27] MEDS ORDERED: FINASTERIDE 5 MG TABLET (FP) PO SCH (10:00)
[2022-06-27 10:09] LABS: ALBUMIN 3.6 g/dl (3.4-5.0); BLOOD UREA NITROGEN 6.1 mg/dL (7-18); CALCIUM 7.9 mg/dL (8.5-10.1)
[2022-06-27 10:12] LABS: CREATININE 1.5 mg/dL (0.55-1.3); PHOSPHOROUS 2.1 mg/dL (2.5-4.9)
[2022-06-27 10:14] LABS: TOT PROT 6.9 g/dl (6.4-8.2)
[2022-06-27] MEDS ORDERED: POTASSIUM CHLORIDE TABS 20 MEQ TABLET.ER (FP) PO SCH (11:00)
[2022-06-27 15:43] VITALS: BP 150/62; PULSE 106; TEMP 97.7
[2022-06-28] MEDS ORDERED: chlordiazePOXIDE HCL 25 MG CAPSULE PO SCH (05:00)
[2022-06-28] MEDS ORDERED: TAMSULOSIN HCL 0.4 MG CAP PO SCH (08:30)
[2022-06-28] MEDS ORDERED: PANTOPRAZOLE 40 MG TABLET PO SCH (10:00)
[2022-06-28] MEDS ORDERED: THIAMINE HCL 100 MG TABLET (FP) PO SCH (10:00)
[2022-06-29] MEDS ORDERED: chlordiazePOXIDE HCL 10 MG CAPSULE PO PRN
[2022-06-29] MEDS ORDERED: chlordiazePOXIDE HCL 10 MG CAPSULE PO SCH (05:00)
[2022-06-30 00:06] LABS: ALPHA 2 MACROGLOBULINS,QN 206 mg/dL (110-276); ALT(SGPT)P5P 31 IU/L (0-55); APOLIPOPROTEIN A-1. 146 mg/dL (101-178); CHOLESTEROL TOTAL 185 mg/dL (100-199); FIBROSIS SCORE- 0.38 (0.00-0.21); GLUCOSE SERUM 153 mg/dL (70-99); HEIGHT. 64 in (.); WEIGHT. 170 LBS (.)
[2022-06-30] MEDS ORDERED: chlordiazePOXIDE HCL 10 MG CAPSULE PO SCH (05:00)
[2022-07-01] MEDS ORDERED: chlordiazePOXIDE HCL 10 MG CAPSULE PO ONE (05:00)
== END 2022-06-27 17:41 | disposition left against medical advice (07) | DRG 378 ==
LOC: JER 14:23 → JERBED 22:01 → J8W 06-27 02:56
PROVIDERS: ADMIT Internal Medicine; ATTEND Nurse Practitioner Acute Care
DX: K92.0 Hematemesis (principal); F10.239 Alcohol dependence with withdrawal, unspecified; N13.30 Unspecified hydronephrosis; N17.9 Acute kidney failure, unspecified; E78.5 Hyperlipidemia, unspecified; I10 Essential (primary) hypertension; E87.6 Hypokalemia; E83.42 Hypomagnesemia; E03.9 Hypothyroidism, unspecified; N40.0 Benign prostatic hyperplasia without lower urinary tract symptoms
CPT/HCPCS: 36415; 70450-TC; 74176-TC; 80053; 80307; 81003; 82272; 82803; 83036; 83690; 83735; 84100; 85025; 85027; 87086; 93005; 93010; 97116-GP; 97161-GP; 99285-25; C9803-CS; G0480; U0003; U0005